=== PATIENT | female | born 1980 | race Caucasian/White ===

== ENCOUNTER 2017-09-03 17:46 | Emergency (ER) | payer MEDICARE, OTHER ==
[2017-09-03 18:09] LABS: Bilirubin Negative (Negative); Blood, Urine Large (Negative); Clarity Cloudy (Clear); Glucose, Urine (Dipstick) Negative (Negative); Leukocyte Small (Negative); Nitrite Negative (Negative); Protein, Urine (Dipstick) > or equal to 300 mg/dL (Neg-Trace); pH, Urine 8.5 (5.0-9.0)
[2017-09-03 18:17] LABS: WBC/HPF 21-50 HPF (0-3)
[2017-09-03 18:18] LABS: Bacteria/HPF 3+ HPF (None Seen)
== END 2017-09-03 18:49 | disposition home or self-care (01) ==
LOC: SCSER 17:46
DX: N39.0 Urinary tract infection, site not specified (principal); E03.9 Hypothyroidism, unspecified; F32.9 Major depressive disorder, single episode, unspecified; F41.9 Anxiety disorder, unspecified; Z79.899 Other long term (current) drug therapy
CPT/HCPCS: 81003; 81015; 87077; 87086; 87186; 99283

== ENCOUNTER 2018-03-10 09:15 | Outpatient (CLI) | payer MEDICARE | END 2018-03-10 09:16 | disposition home or self-care (01) | LOC: BICMAMMO 09:15 | PROVIDERS: ATTEND Family Medicine | DX: N63.0 Unspecified lump in unspecified breast (principal); N64.52 Nipple discharge; Z98.890 Other specified postprocedural states | CPT/HCPCS: 76642 ×2; 77066; G0279 ==

== ENCOUNTER 2018-06-10 20:26 | Emergency (ER) | payer MEDICARE | END 2018-06-10 21:52 | disposition home or self-care (01) | LOC: SCSER 20:26 | DX: M79.672 Pain in left foot (principal); E03.9 Hypothyroidism, unspecified; F32.9 Major depressive disorder, single episode, unspecified; F41.9 Anxiety disorder, unspecified; Z79.899 Other long term (current) drug therapy | CPT/HCPCS: 99283 ==

== ENCOUNTER 2018-06-11 12:06 | Emergency (ER) | payer MEDICARE ==
[2018-06-11] MEDS ORDERED: Ibuprofen 800 MG TAB ONE (12:39)
[2018-06-11 13:00] LABS: #Basophils 0.1 thou/uL (0.0-0.2); #Monocytes 0.5 thou/uL (0.11-0.59); #Neutrophils 6.3 thou/uL (1.40-6.50); %Basophils 0.8 % (0.0-1.0); %Eosinophils 0.5 % (0.0-10.0); %Monocytes 5.7 % (0.0-10.0); Mean Corpuscular Hemoglobin 28.8 pg (27.0-31.0); Mean Corpuscular Volume 84.6 fL (78.0-98.0); Mean Platelet Volume 7.6 fL (7.4-10.4); Platelet Count 354 thou/uL (130-400); RBC Distribution Width 10.2 % (11.5-14.5); Red Blood Cell (RBC) Count 4.84 mill/uL (4.20-5.40); White Blood Cell (WBC) Count 7.9 thou/uL (4.8-10.8)
[2018-06-11 13:11] LABS: Anion Gap 15 mmol/L (10-20); BUN (Urea Nitrogen) 10 mg/dL (7.0-18.7); Calc. Creatinine Clearance 0 mL/min (70-130); Calcium 9.2 mg/dL (7.8-10.44); Carbon Dioxide 24 mmol/L (22-29); Chloride 104 mmol/L (98-107); Estimated GFR-MDRD Greater than 90; Glucose 90 mg/dL (70-105); Potassium 3.8 mmol/L (3.5-5.1); Sodium 139 mmol/L (136-145)
--- NOTE | 2018-06-11 13:17 | RAD ---
CHEST ONE VIEW: History: Dyspnea. Comparison: 05-30-11 FINDINGS: Normal cardiac silhouette. The pulmonary vessels and hilum are normal. Costophrenic angles are clear. No consolidation or mass. No pneumothorax or osseous abnormality. IMPRESSION: No acute cardiopulmonary process. POS: [facility]
--- NOTE | 2018-06-11 13:22 | RAD ---
LEFT FOOT THREE VIEWS: HISTORY: Injury. Pain. COMPARISON: None. FINDINGS: Lisfranc alignment is maintained. Joint spaces are preserved. No fracture. IMPRESSION: No fracture. POS: [facility]
[2018-06-11 13:24] LABS: BHCG - Serum Negative (NEGATIVE); Pregs Control Background? CLEAR/WHITE (CLR/WHITE); Pregs Control Bar Appear? YES (CONTROL BAR)
== END 2018-06-11 15:03 | disposition home or self-care (01) ==
LOC: SCSER 12:06
DX: S90.122A Contusion of left lesser toe(s) without damage to nail, initial encounter (principal); R09.89 Other specified symptoms and signs involving the circulatory and respiratory systems; E03.9 Hypothyroidism, unspecified; F41.9 Anxiety disorder, unspecified; F32.9 Major depressive disorder, single episode, unspecified; W22.8XXA Striking against or struck by other objects, initial encounter
CPT/HCPCS: 71045; 80048; 84484; 84703; 85025; 85379; 93005; 96360; 96361

== ENCOUNTER 2018-10-14 08:44 | Emergency (ER) | payer MEDICARE ==
--- NOTE | 2018-10-14 09:35 | RAD ---
Exam:Left knee 4 views HISTORY: Pain COMPARISON: None FINDINGS: Joint spaces are preserved. No fracture or malalignment. No joint effusion IMPRESSION: Unremarkable left knee 4 views
== END 2018-10-14 09:42 | disposition home or self-care (01) ==
LOC: SCSER 08:44
DX: M25.562 Pain in left knee (principal); E03.9 Hypothyroidism, unspecified; F41.9 Anxiety disorder, unspecified; F32.9 Major depressive disorder, single episode, unspecified; Z79.899 Other long term (current) drug therapy

== ENCOUNTER 2018-10-14 14:40 | Outpatient (CLI) | payer MEDICARE ==
--- NOTE | 2018-10-14 15:11 | ULT ---
BILATERAL LOWER EXTREMITY VENOUS DOPPLER ULTRASOUND: Date: 10/14/18 HISTORY: Left leg pain and edema. TECHNIQUE: Keys scale ultrasound with color flow and spectral Doppler imaging of the deep venous system of the l eft lower extremity was performed. FINDINGS: There is good flow, compression, and augmentation noted in the common femoral, femoral, deep femoral, popliteal, posterior tibial, and greater saphenous veins of the left lower extremity. IMPRESSION: No evidence of deep venous thrombosis in the left lower extremity. POS: [facility]
== END 2018-10-14 14:41 | disposition home or self-care (01) ==
LOC: ULT 14:40 → BICULT 14:41
PROVIDERS: ATTEND Family Medicine
DX: M25.562 Pain in left knee (principal); R60.0 Localized edema

== ENCOUNTER 2018-12-04 20:13 | Emergency (ER) | payer MEDICARE | END 2018-12-04 21:05 | disposition home or self-care (01) | LOC: SCSER 20:13 | DX: R51 Headache (principal); E03.9 Hypothyroidism, unspecified; F41.9 Anxiety disorder, unspecified; F32.9 Major depressive disorder, single episode, unspecified; Z79.899 Other long term (current) drug therapy | CPT/HCPCS: 99283 ==

== ENCOUNTER 2018-12-05 09:40 | Emergency (ER) | payer MEDICARE ==
[2018-12-05 10:31] LABS: Hemoglobin 14.5 g/dL (12.0-16.0); Lymphocytes 14 % (21-51); MDiff Complete? YES; Mean Corpuscular HGB CONC 34.8 g/dL (32.0-36.0); Mean Corpuscular Hemoglobin 29.5 pg (27.0-31.0); Mean Corpuscular Volume 84.7 fL (78.0-98.0); Mean Platelet Volume 6.1 fL (7.4-10.4); Monocytes 3 % (0-10); Neutrophil 83 % (42-75); Platelet Count 331 thou/uL (130-400); Platelet Morphology Comment Appears Adequate; RBC Distribution Width 10.8 % (11.5-14.5); Red Blood Cell (RBC) Count 4.93 mill/uL (4.20-5.40)
[2018-12-05 10:36] LABS: ALT (SGPT) 15 U/L (8-55); AST (SGOT) 14 U/L (5-34); Albumin 4.5 g/dL (3.5-5.0); Alkaline Phosphatase 104 U/L (40-150); Anion Gap 18 mmol/L (10-20); BUN (Urea Nitrogen) 6 mg/dL (7.0-18.7); Bilirubin, Total 0.3 mg/dL (0.2-1.2); Calc. Creatinine Clearance 0 mL/min (70-130); Calcium 9.5 mg/dL (7.8-10.44); Carbon Dioxide 24 mmol/L (22-29); Chloride 101 mmol/L (98-107); Estimated GFR-MDRD 90; Globulin 3.2 g/dL (2.4-3.5); Glucose 111 mg/dL (70-105); Potassium 3.5 mmol/L (3.5-5.1); Protein, Total 7.7 g/dL (6.0-8.3); Sodium 139 mmol/L (136-145)
[2018-12-05 10:45] LABS: Bilirubin Small (Negative); Blood, Urine Negative (Negative); Clarity Slightly Cloudy (Clear); Glucose, Urine (Dipstick) Negative (Negative); Leukocyte Negative (Negative); Nitrite Negative (Negative); Protein, Urine (Dipstick) 30 mg/dL (Neg-Trace)
[2018-12-05 10:50] LABS: Bacteria/HPF 1+ HPF (None Seen); Hyaline Casts/LPF 0-3 HYALINE CAST LPF (0-3 Hyaline); RBC/HPF 0-3 HPF (0-3); WBC/HPF 0-3 HPF (0-3)
--- NOTE | 2018-12-05 11:26 | CT ---
Exam: CT brain PROVIDED CLINICAL HISTORY: Headache COMPARISON: 04/02/2003 FINDINGS: The ventricular system is normal in size and morphology. No evidence for intracranial hemorrhage or mass effect. The extracranial soft tissues and osseous structures demonstrate an unremarkable CT appearance. IMPRESSION: No evidence for intracranial hemorrhage or mass effect.
--- NOTE | 2018-12-05 12:28 | CT ---
EXAM: CT pulmonary angiogram with IV contrast and 3-D MIP reconstructions PROVIDED CLINICAL HISTORY: Tachycardia COMPARISON: None FINDINGS: There is no evidence for central or segmental pulmonary embolus. The lungs are free of significant op acity. No pleural fluid or pneumothorax apparent. No evidence for thoracic lymph node enlargement. The airway appears patent and of normal caliber. The visualized portions of the upper abdomen demonst rate no acute findings. The osseous structures demonstrate no concerning lytic or blastic lesions. IMPRESSION: No evidence for central or segmental pulmonary embolus.
== END 2018-12-05 13:20 | disposition home or self-care (01) ==
LOC: SCSER 09:40
DX: R00.2 Palpitations (principal); F41.9 Anxiety disorder, unspecified; F32.9 Major depressive disorder, single episode, unspecified; E03.9 Hypothyroidism, unspecified; Z79.899 Other long term (current) drug therapy
CPT/HCPCS: 70450; 71275; 80053; 81003; 81015; 84443; 84484; 85025; 85379; 93005; 96360

== ENCOUNTER 2018-12-14 11:53 | Emergency (ER) | payer MEDICARE ==
[2018-12-14] MEDS ORDERED: Ondansetron PF 4 MG/2 ML Vial ONE (12:18)
== END 2018-12-14 14:22 | disposition home or self-care (01) ==
LOC: SCSER 11:53
DX: R11.2 Nausea with vomiting, unspecified (principal); E03.9 Hypothyroidism, unspecified; F32.9 Major depressive disorder, single episode, unspecified; F41.9 Anxiety disorder, unspecified; Z79.899 Other long term (current) drug therapy
CPT/HCPCS: 96361; 96374; J2405

== ENCOUNTER 2018-12-20 17:40 | Emergency (ER) | payer MEDICARE ==
[2018-12-20] MEDS ORDERED: Acetaminophen 500 MG TAB ONE (18:03)
== END 2018-12-20 18:16 | disposition home or self-care (01) ==
LOC: SCSER 17:40
DX: L25.9 Unspecified contact dermatitis, unspecified cause (principal); E03.9 Hypothyroidism, unspecified; F41.9 Anxiety disorder, unspecified; F32.9 Major depressive disorder, single episode, unspecified; Z79.899 Other long term (current) drug therapy
CPT/HCPCS: 87081; 87430; 99283

== ENCOUNTER 2018-12-22 12:38 | Inpatient (IN) | payer MEDICARE ==
[2018-12-22 13:30] LABS: #Basophils 0.1 thou/uL (0.0-0.2); #Lymphocytes 0.5 thou/uL (1.20-3.40); #Monocytes 0.4 thou/uL (0.11-0.59); #Neutrophils 5.9 thou/uL (1.40-6.50); %Basophils 0.8 % (0.0-1.0); %Eosinophils 0.3 % (0.0-10.0); %Lymphocytes 7.1 % (21.0-51.0); %Neutrophils 85.8 % (42.0-75.0); Hemoglobin 14.7 g/dL (12.0-16.0); Mean Corpuscular HGB CONC 36.2 g/dL (32.0-36.0); Mean Corpuscular Hemoglobin 29.3 pg (27.0-31.0); Mean Corpuscular Volume 80.9 fL (78.0-98.0); Mean Platelet Volume 8.1 fL (7.4-10.4); Platelet Count 236 thou/uL (130-400); RBC Distribution Width 10.9 % (11.5-14.5); Red Blood Cell (RBC) Count 5.02 mill/uL (4.20-5.40); White Blood Cell (WBC) Count 6.9 thou/uL (4.8-10.8)
[2018-12-22 13:37] LABS: BHCG - Serum Negative (NEGATIVE); Pregs Control Background? CLEAR/WHITE (CLR/WHITE); Pregs Control Bar Appear? YES (CONTROL BAR)
[2018-12-22 13:47] LABS: ALT (SGPT) 22 U/L (8-55); AST (SGOT) 26 U/L (5-34); Albumin 4.2 g/dL (3.5-5.0); Alkaline Phosphatase 99 U/L (40-150); Anion Gap 24 mmol/L (10-20); BUN (Urea Nitrogen) 12 mg/dL (7.0-18.7); Bilirubin, Total 0.4 mg/dL (0.2-1.2); Calc. Creatinine Clearance 0 mL/min (70-130); Calcium 8.9 mg/dL (7.8-10.44); Carbon Dioxide 19 mmol/L (22-29); Chloride 93 mmol/L (98-107); Estimated GFR-MDRD 54; Globulin 3.1 g/dL (2.4-3.5); Glucose 96 mg/dL (70-105); Lipase 309 U/L (8-78); Protein, Total 7.3 g/dL (6.0-8.3); Sodium 134 mmol/L (136-145)
[2018-12-22 13:51] LABS: Potassium 2.2 mmol/L (3.5-5.1)
[2018-12-22] MEDS ORDERED: Ondansetron ODT 4 MG TAB ONE (14:09)
[2018-12-22 14:56] LABS: Magnesium 2.1 mg/dL (1.6-2.6); Phosphorus 2.8 mg/dL (2.3-4.7)
[2018-12-22] MEDS ORDERED: D5 1/2 NS w/20 mEq KCL 1,000 ML ONE (16:07)
[2018-12-22] MEDS ORDERED: NS 0.9% w/ 20 MEQ KCL 1,000 ML/1,000 ML BAG IV SCH (17:30)
[2018-12-22 18:24] LABS: Anion Gap 18 mmol/L (10-20); BUN (Urea Nitrogen) 10 mg/dL (7.0-18.7); Calc. Creatinine Clearance 0 mL/min (70-130); Carbon Dioxide 19 mmol/L (22-29); Chloride 100 mmol/L (98-107); Estimated GFR-MDRD 71; Glucose 128 mg/dL (70-105); Sodium 134 mmol/L (136-145)
[2018-12-22 18:44] LABS: Potassium 2.7 mmol/L (3.5-5.1)
[2018-12-22] MEDS ORDERED: Potassium Chloride 40 MEQ in Premix Bag 1 BAG IVPB SCH (19:00)
[2018-12-22] MEDS ORDERED: D5 1/2 NS w/40 mEq KCL 1,000 ML IV SCH (19:00)
[2018-12-22] MEDS ORDERED: Ondansetron ODT 4 MG TAB PO PRN (22:24)
[2018-12-22] MEDS ORDERED: Acetaminophen 500 MG TAB PO PRN (22:24)
[2018-12-22] MEDS ORDERED: Ondansetron PF 4 MG/2 ML Vial IVP PRN (22:24)
[2018-12-22] MEDS: D5 NS w/ 40 mEq KCl 1,000 ML IV SCH (23:55)
[2018-12-22] MEDS: Ketorolac Tromethamine 30 MG/ML VIAL IVP SCH (23:56)
--- NOTE | 2018-12-23 03:51 | HP ---
PRIMARY CARE PROVIDER: Cathi Vincent MD. CHIEF COMPLAINT: Nausea, vomiting, and abdominal pain. HISTORY OF PRESENT ILLNESS: This is a 38-year-old female, who presents to [facility] Emergency Department with approximately a week-long history of persistent abdominal pain associated with nausea, vomiting, and decreased oral intake. The patient states her symptoms began spontaneously without change to dietary regimen, exposure history, or new medications. The patient denied any family members with similar symptoms and denied diarrhea. The patient denied any blood in her emesis and reports that she presented to an emergency room after approximately 3 days of symptoms, receiving Zofran and symptomatic treatment. The patient was released home and states her symptoms persisted despite the Zofran and trying to maintain her hydration. The patient denied any specific fever, chills, or previous symptoms or abdominal pain similar to this presentation. The patient localizes the pain in her mid epigastric region with some radiation to her back. The patient denies any lower pelvic pain, discharge, or recent surgical intervention. In the emergency room, the patient underwent general evaluation showing evidence of severe dehydration with hypokalemia, elevated creatinine, and lipase of 309. The patient received intravenous normal saline in addition to potassium supplementation. The patient also received antiemetics including Zofran with improvement in her nausea. PAST MEDICAL HISTORY: 1. Depression. 2. Narcolepsy with cataplexy, controlled. 3. Hypothyroidism, treated. 4. cardiomyopathy, stable. PAST SURGICAL HISTORY: Status post partial hysterectomy with ovarian cystectomy. CURRENT MEDICATIONS: 1. Nuvigil 1 tablet daily. 2. Levothyroxine daily. 3. Xyrem 3 g p.o. at bedtime. 4. Vyvanse daily. 5. Abilify 2 mg p.o. daily. Doses will need to be confirmed with the patient. ALLERGIES: TO MORPHINE SULFATE AND DILANTIN. FAMILY HISTORY: No inheritable disease per patient report. SOCIAL HISTORY: The patient resides in [place], [place]. Accompanied by her daughter in the hospital. No current alcohol, tobacco, or illicit drug use. Functional of all activities of daily living. REVIEW OF SYSTEMS: CONSTITUTIONAL: Negative for weight loss or gain, ability to conduct usual activities. SKIN: Negative for rash, itching. EYES: Negative for double vision, pain. ENT/MOUTH: Negative for nose bleeding, neck stiffness, pain, tenderness. CARDIOVASCULAR: Negative for palpitations, dyspnea on exertion, orthopnea. RESPIRATORY: Negative for shortness of breath, wheezing, cough, hemoptysis, fever or night sweats. GASTROINTESTINAL: Negative for poor appetite, abdominal pain, heartburn, nausea, vomiting, constipation, or diarrhea. GENITOURINARY: Negative for urgency, frequency, dysuria, nocturia. MUSCULOSKELETAL: Negative for pain, swelling. NEUROLOGIC/PSYCHIATRIC: Negative for anxiety, depression. ALLERGY/IMMUNOLOGIC: Negative for skin rash, bleeding tendency. Otherwise negative except as stated per HPI. PHYSICAL EXAMINATION: VITAL SIGNS: On admission, blood pressure 124/85, pulse 92, respiratory rate 16, temperature 98.7 degrees Fahrenheit, O2 saturation 99% on room air. GENERAL APPEARANCE: This is a 38-year-old female, alert, responsive, pleasant, in no acute distress. HEENT: Pupils are equal, round, and reactive to light and accommodation. Extraocular muscles are intact. No scleral icterus. No conjunctival injection. Nares are patent. OP is clear. Oral mucosa dry. NECK: Supple. No cervical adenopathy. No thyromegaly. No carotid bruits. No JVD appreciated. Cervical spine with full active and passive range of motion. No meningeal signs noted. CHEST: Lungs are clear to auscultation bilaterally. CARDIOVASCULAR: S1, S2 without noted murmur, rub, or gallop. ABDOMEN: Flat with tenderness to palpation in the mid epigastric region. No rebound or guarding appreciated. No palpable mass. Bowel sounds positive in all quadrants. EXTREMITIES: Warm and dry with fair turgor. No clubbing, cyanosis, or asymmetric edema appreciated. Pulses palpable distally at the dorsalis pedis, posterior tibial, and popliteal arteries bilaterally. Capillary refill less than 2 seconds. NEUROLOGIC: Cranial nerves 2 through 12 are grossly intact. No focal or lateralizing signs appreciated. PERTINENT LAB AND X-RAY FINDINGS: Sodium 134, potassium 2.2, chloride 93, CO2 of 19, BUN 12, creatinine 1.13, estimated GFR 54, lactic acid level 0.5, calcium 8.9, phosphorus 2.8, magnesium 2.1, total bilirubin 0.4, AST 26, ALT of 22, alkaline phosphatase 99, albumin 4.2, lipase 309. Serum beta hCG negative. CBC showed a white blood cell count of 6.9, hemoglobin 14.7, hematocrit 40.6, platelet count 236 with 86% neutrophils. Beta-hydroxybutyrate level 5.49. ASSESSMENT AND PLAN: 1. Acute pancreatitis. Exact etiology unclear. We will obtain abdominal right upper quadrant ultrasound in the a.m. to rule out cholestasis or cholelithiasis. Continue intravenous fluids. N.p.o. except for ice chips and sips of water. Pain control with Toradol 30 mg IV q.6 hours p.r.n. Check fasting lipid profile in the a.m. with attention to triglycerides. Repeat lipase in the a.m. 2. Acute kidney injury secondary to dehydration. Continue D5 normal saline and avoid nephrotoxic agents and limit contrast exposure. Repeat creatinine in the a.m. 3. Hypokalemia. Secondary to ongoing GI losses. Continue potassium supplementation with IV fluids and repeat potassium level in the a.m. 4. Nausea and vomiting secondary to #1. Continue antiemetics with Zofran 4 mg IV q.6 hours p.r.n. Ice chips and sips of water as tolerated. 5. Metabolic acidosis. Secondary to starvation ketosis and poor oral intake due to #1. Continue treatment as outlined previously. 6. Prophylaxis. SCDs while in bed. Pepcid 20 mg IV q.12 hours. 7. Code status is full. Surrogate medical decision maker is Kia Mckeon. Job ID: [id number]
[2018-12-23 05:51] LABS: ALT (SGPT) 14 U/L (8-55); AST (SGOT) 17 U/L (5-34); Albumin 3.2 g/dL (3.5-5.0); Alkaline Phosphatase 69 U/L (40-150); Anion Gap 13 mmol/L (10-20); BUN (Urea Nitrogen) 7 mg/dL (7.0-18.7); Bilirubin, Total 0.2 mg/dL (0.2-1.2); Calc. Creatinine Clearance 68 mL/min (70-130); Carbon Dioxide 23 mmol/L (22-29); Cardiac Risk 4.1 (Less than 4.5); Chloride 103 mmol/L (98-107); Cholesterol 152 mg/dl (< 200 Desired); Estimated GFR-MDRD 75; Glucose 131 mg/dL (70-105); HDL Cholesterol 37 mg/dL (>60 Neg Risk); LDL Cholesterol, Calculated 100 mg/dL; Lipase 481 U/L (8-78); Potassium 2.8 mmol/L (3.5-5.1); Protein, Total 5.2 g/dL (6.0-8.3); Sodium 136 mmol/L (136-145); Triglycerides 73 mg/dL (Less than 150)
[2018-12-23 06:11] LABS: Band 4 % (5-11); Eosinophils 2 % (0-10); Lymphocytes 12 % (21-51); MDiff Complete? YES; Mean Corpuscular HGB CONC 34.9 g/dL (32.0-36.0); Mean Corpuscular Hemoglobin 30.1 pg (27.0-31.0); Mean Corpuscular Volume 86.1 fL (78.0-98.0); Monocytes 9 % (0-10); Neutrophil 71 % (42-75); Platelet Count 171 thou/uL (130-400); RBC Distribution Width 11.4 % (11.5-14.5); Reactive Lymphocytes 2 % (0-10); Red Blood Cell (RBC) Count 3.66 mill/uL (4.20-5.40); White Blood Cell (WBC) Count 6.8 thou/uL (4.8-10.8)
[2018-12-23] MEDS: Levothyroxine Sodium 75 MCG TAB PO SCH (06:25)
[2018-12-23] MEDS: Ketorolac Tromethamine 30 MG/ML VIAL IVP SCH ×2 (06:25→16:20)
[2018-12-23] MEDS ORDERED: Potassium Chloride 40 MEQ in Premix Bag 1 BAG IVPB SCH (08:00)
--- NOTE | 2018-12-23 08:12 | ULT ---
GALLBLADDER ULTRASOUND: Date: 12/23/18 INDICATION: Abdominal pain, pancreatitis. FINDINGS: There is a focal region of increased echogenicity of the hepatic parenchyma, demonstrated as an appro ximately 3.7 cm diameter localized in the left hepatic lobe, nonspecific. There are low level echoes of the gallbladder without shadowing. Gallbladder wall is normal in caliber. No obvious pericholecyst ic edema. The common duct is normal, 2 mm in diameter. No ascites is seen. Imaged portions of the posadas creas are grossly unremarkable. IMPRESSION: 1. Low level echoes of the gallbladder could relate to sludge and/or gravel-like cholelithiasis. The re is no cholecystitis evident sonographically. 2. Normal sized common duct. 3. Focal area of increased echogenicity localized in the left hepatic lobe. This could represent an area of focal fatty infiltration, although is nonspecific. Recommend follow-up pre and postcontrast a bdominal MRI for confirmation. POS: [facility]
[2018-12-23] MEDS: D5 NS w/ 40 mEq KCl 1,000 ML IV SCH ×3 (09:12→23:20)
[2018-12-23] MEDS: Famotidine/PF 20 mg/2ml Vial SLOW IVP SCH ×2 (09:12→21:23)
[2018-12-23] MEDS: Potassium Chloride 20 MEQ in Premix Bag 1 BAG IVPB SCH ×4 (09:13→16:27)
[2018-12-23] MEDS ORDERED: Acetaminophen 325 MG TAB PO PRN (10:14)
[2018-12-23] MEDS: VYVANSE 60 MG PO SCH (10:34)
[2018-12-23] MEDS: NUVIGIL 250 MG PO SCH ×4 (10:34→16:51)
[2018-12-23 12:45] LABS: Potassium 2.8 mmol/L (3.5-5.1)
[2018-12-23] MEDS ORDERED: Fentanyl 100 MCG/2 ML VIAL SLOW IVP PRN (13:42)
--- NOTE | 2018-12-23 14:08 | CT ---
CT HEAD WITHOUT CONTRAST: 12/23/18 Multiple axial tomograms obtained through the head without IV enhancement. INDICATIONS: Fall with head injury on 12/22. Headache. Comparison made to CT head 12/05/18. No evidence of mass or hemorrhage. No evidence of infarct or edema. IMPRESSION: No acute abnormality. No interval change. POS: [facility]
--- NOTE | 2018-12-23 15:00 | PRG ---
DATE OF SERVICE: SUBJECTIVE: A 38-year-old female presented to the emergency room with persistent nausea and vomiting as well as oral intake over the last one and half to two weeks. She has lost approximately 20 pounds per patient report. She feels symptomatically better with IV fluids overnight. No diarrhea reported. Abdominal pain is intermittent. She continues to have pressure on the center of the head, which has somewhat worsened since yesterday. She also reports that she fell yesterday and hit her head on the floor. This was witnessed by her daughter who was at the bedside. REVIEW OF SYSTEMS: The patient denies any chest pain, palpitations, or focal neurologic deficit. CURRENT MEDICATIONS: Reviewed. The patient is on IV fluids with potassium as well as levothyroxine and other home medications. PHYSICAL EXAMINATION: VITAL SIGNS: Temperature 98.7, pulse 71, respirations of 18, blood pressure 109 /61, and O2 saturation 98% on room air. GENERAL: A 38-year-old female in mild distress due to persistent pressure on the head. HEENT: Head, atraumatic and normocephalic. Sclerae anicteric. Moist mucous membranes. No oral lesion. NECK: Supple. No JVD appreciated. No carotid bruit. LUNGS: Clear to auscultation bilaterally. No wheezing, rales, or rhonchi. HEART: S1, S2 present. Regular rate and rhythm. No rubs or gallops. ABDOMEN: Soft. Mild epigastric tenderness. No rebound or guarding. No costovertebral angle tenderness. EXTREMITIES: No edema or calf tenderness. NEUROLOGIC: Grossly nonfocal. Power was 5/5 in all extremities. LABORATORY DATA: Telemetry monitoring by my review showed sinus rhythm. Abdominal ultrasound showed normal size common bile duct. There was suspected sludge versus cholelithiasis in the gallbladder. There was also a focal area of increased echogenicity localized in the left hepatic lobe. This could represent focal fatty infiltration per radiologist. Potassium 2.8. Ketones on admission 5.49. BUN 7, creatinine 0.84. LFTs in normal range. Lipase went up to 481 from 309. IMPRESSION: 1. Acute pancreatitis of unclear etiology. 2. Acute kidney injury secondary to dehydration. Maximum creatinine was 1.25. 3. Moderate protein-calorie malnutrition. The patient has lost approximately 20 pounds recently per patient report. 4. Hypokalemia with potassium 2.2 on admission. 5. Hyponatremia. 6. Chronic kidney disease, stage 2. 7. Persistent headache with a closed head injury yesterday per patient report. 8. Hypothyroidism. 9. Narcolepsy with cataplexy. 10. History of cardiomyopathy. 11. Depression, mild, stable. 12. Starvation ketosis. 13. Suspected cholelithiasis versus sludge on the ultrasound. 14. Focal area of increased echogenicity localized in the left hepatic lobe. Pre and postcontrast abdominal MRI is recommended as outpatient. Primary care physician advised to follow. PLAN: 1. Potassium will be replaced. We will keep her n.p.o. Gastroenterology has been consulted. We will continue her home medications. We will get a CT scan of the brain noncontrast due to persistent headache as well as history of fall yesterday. We will check ketones in a.m. along with LFTs and lipase. We will consult walking program for ambulation. We will continue telemetry monitoring until potassium is stable. 2. GI prophylaxis. 3. SCDs for DVT prophylaxis. Job ID: [id number] [facility]
[2018-12-23] MEDS: Aripiprazole 10 MG TAB PO SCH (21:23)
[2018-12-23] MEDS: XYREM PO SCH (22:22)
--- NOTE | 2018-12-24 00:47 | CON ---
DATE OF CONSULTATION: 12/23/2018 REASON FOR CONSULTATION: Abdominal pain, nausea and vomiting, and evidence of pancreatitis. HISTORY OF PRESENT ILLNESS: Mena Figueroa is a very pleasant 38-year-old female who does see Dr. Cathi Vincent on a regular basis. The patient lived in [place] before she moved to [facility] 2 years ago. She was actually living here many years ago, I believe in 1999 and she moved to [place]. The patient has history of epigastric abdominal pain, nausea, and also some palpitation. Her symptoms started on December 13. She came to the ER because of nausea and vomiting . She was told to have gastroenteritis and was sent home on some medication. The patient's symptoms persisted. To begin with, the pain was actually burning in nature. The pain was in epigastric area. Her symptoms persisted for the last 10 days and she was having nausea, vomiting, not able to keep anything down. There is no history of fever or chills. She saw Dr. Cathi Vincent on Friday who told her that she has chronic pancreatitis and was sent to the ER and subsequently hospitalized. Since admission, the patient was actually feeling better. She appears comfortable at this time. The pain intensity is much less. There was no more nausea, no vomiting. She is able to keep sips of ice and water down. The pain which was burning in nature to begin with for several days subsequently changed to more of a persistent pain. The pain was [id number] in intensity. There is no history of fever or chills. No similar episodes in the past. The patient came to the ER, had an evidence of pancreatitis and hospitalized. However, subsequently her lipase level is not very high, it is in the range of 400. The patient does not drink any alcohol. Abdominal sonogram shows what appears to be biliary sludge. The common duct is normal in caliber. No relevant history. ALLERGIES: ALLERGIC TO DILANTIN AND MORPHINE. MEDICAL ILLNESSES: 1. Depression. 2. Hypothyroidism. 3. Narcolepsy with cataplexy, controlled. 4. cardiomyopathy, heart function back to normal since 2011 and not taking medications. PAST SURGICAL HISTORY: Partial hysterectomy. SOCIAL HISTORY: The patient has 3 children. She does not smoke or drink alcohol. MEDICATIONS: Include; 1. Nuvigil one tab once a day. 2. Levothyroxine once a day. 3. Xyrem 3 g p.o. at bedtime. 4. Vyvanse daily. 5. Abilify 2 mg daily. FAMILY HISTORY: I believe mother had abdominal surgery. REVIEW OF SYSTEMS: A 10-point system reviewed, remarkable for headache, to begin with from palpitation and also her nausea, vomiting. She also has some burning over the epigastric area. Other relevant history is that she has lost 15 pounds over the last 10 days, she could not able to anything at all. HEENT: Unremarkable. LUNGS: No chronic coughing. No hemoptysis. No dyspnea. CARDIOVASCULAR: No chest pain. History of palpitation 10 days ago. No dyspnea, orthopnea, PND. GI: As in the history of present illness. : No dysuria, hematuria or frequency of urination. MUSCULOSKELETAL: Unremarkable. ENDOCRINE: Unremarkable. PHYSICAL EXAMINATION: GENERAL: She is very comfortable. She is very thin built. VITAL SIGNS: Afebrile. Pulse is 92, blood pressure 120/70. Conjunctivae clear. NECK: Supple. No adenitis or thyromegaly noted. CARDIOVASCULAR: First and second sounds are normal. LUNGS: Clear to auscultation. ABDOMEN: Soft. Abdomen is nondistended. She is tender over the epigastric area and slightly over the right upper quadrant. There is no rebound or guarding. No organomegaly. Bowel sounds are normal. EXTREMITIES: Reveal no edema. LABORATORY DATA: Sodium 134, potassium is 2.2, chloride 93, bicarb is 19, BUN is 12, creatinine 1.13, lactic acid 0.5, calcium 8.9, phosphorus 2.8, magnesium 2.1, bilirubin 0.4, AST 26, ALT 22, alkaline phosphatase 99, bilirubin is normal. Albumin 4.2, lipase 309. CBC; WBC 6900, hemoglobin 14.7, hematocrit 40.6, MCV normal, platelet count 236,000. CLINICAL IMPRESSION: 1. Acute pancreatitis. The patient does not take any alcohol and most likely she has a biliary pancreatitis. She does have gallbladder sludge. 2. Hypothyroidism. 3. Depression. 4. Narcolepsy with cataplexy. 5. cardiomyopathy, which is back to normal. RECOMMENDATIONS: 1. Analgesics. 2. IV fluids. 3. Follow up labs. 4. Place surgical consult for possible laparoscopic cholecystectomy. Job ID: [id number]
[2018-12-24] MEDS: XYREM PO SCH ×2 (01:26→21:36)
[2018-12-24 05:40] LABS: #Eosinphils 0.2 thou/uL (0.0-0.7); #Lymphocytes 1.1 thou/uL (1.20-3.40); #Monocytes 0.5 thou/uL (0.11-0.59); #Neutrophils 3.7 thou/uL (1.40-6.50); %Basophils 0.3 % (0.0-1.0); %Lymphocytes 20.8 % (21.0-51.0); %Monocytes 8.2 % (0.0-10.0); %Neutrophils 67.7 % (42.0-75.0); Hemoglobin 10.5 g/dL (12.0-16.0); Mean Corpuscular HGB CONC 34.7 g/dL (32.0-36.0); Mean Corpuscular Hemoglobin 30.4 pg (27.0-31.0); Mean Corpuscular Volume 87.4 fL (78.0-98.0); Mean Platelet Volume 8.1 fL (7.4-10.4); Platelet Count 163 thou/uL (130-400); RBC Distribution Width 11.7 % (11.5-14.5); Red Blood Cell (RBC) Count 3.46 mill/uL (4.20-5.40); White Blood Cell (WBC) Count 5.5 thou/uL (4.8-10.8)
[2018-12-24] MEDS: Levothyroxine Sodium 75 MCG TAB PO SCH (05:59)
[2018-12-24 06:01] LABS: Phosphorus 2.3 mg/dL (2.3-4.7)
[2018-12-24 06:04] LABS: ALT (SGPT) 14 U/L (8-55); AST (SGOT) 16 U/L (5-34); Albumin 3.1 g/dL (3.5-5.0); Alkaline Phosphatase 68 U/L (40-150); Anion Gap 10 mmol/L (10-20); BUN (Urea Nitrogen) 5 mg/dL (7.0-18.7); Bilirubin, Total 0.2 mg/dL (0.2-1.2); Calc. Creatinine Clearance 88 mL/min (70-130); Calcium 8.1 mg/dL (7.8-10.44); Carbon Dioxide 26 mmol/L (22-29); Chloride 107 mmol/L (98-107); Estimated GFR-MDRD Greater than 90; Globulin 1.8 g/dL (2.4-3.5); Glucose 125 mg/dL (70-105); Lipase 717 U/L (8-78); Magnesium 1.7 mg/dL (1.6-2.6); Potassium 3.1 mmol/L (3.5-5.1); Protein, Total 4.9 g/dL (6.0-8.3); Sodium 140 mmol/L (136-145)
[2018-12-24] MEDS: D5 NS w/ 40 mEq KCl 1,000 ML IV SCH ×2 (08:04→18:12)
[2018-12-24] MEDS ORDERED: Pantoprazole 40 MG VIAL IVP SCH (09:15)
[2018-12-24] MEDS: VYVANSE 60 MG PO SCH (09:27)
[2018-12-24] MEDS: NUVIGIL 250 MG PO SCH ×2 (09:27→12:46)
[2018-12-24] MEDS ORDERED: Sodium Chloride 0.9% (PF) 10 ML VIAL FS PRN (10:24)
[2018-12-24] MEDS: Famotidine/PF 20 mg/2ml Vial SLOW IVP SCH (10:43)
[2018-12-24] MEDS: Ketorolac Tromethamine 30 MG/ML VIAL IVP SCH ×2 (11:26→17:52)
--- NOTE | 2018-12-24 13:59 | PDOC.PN ---
- Subjective Encounter Start Date: 12/24/18 Encounter Start Time: 09:00 Patient seen and examined for Acute Pancreatitis. Abd pain improving. Mild nausea. No other complaints. No overnight events - Objective Resuscitation Status - Order Detail: 12/22/18 22:16 Resuscitation Status Routine Resuscitation Status: FULL: Full Resuscitation MAR Reviewed: Yes Vital Signs & Weight: Vital Signs (12 hours) Temp Pulse Resp BP Pulse Ox 12/24/18 13:06 97.7 F 100 18 116/68 99 12/24/18 08:01 98 F 82 18 119/75 100 12/24/18 03:39 99.5 F 83 20 109/69 98 Weight Admit Weight 105 lb 5 oz Weight 108 lb 11.2 oz I&O: 12/23/18 12/24/18 12/25/18 06:59 06:59 06:59 Intake Total 2940 Balance 2940 Result Diagrams: 12/24/18 04:56 12/24/18 04:56 Additional Labs: Laboratory Tests 12/22/18 12/24/18 12/24/18 13:25 04:56 04:56 Phosphorus Lipase 717 H B-Hydroxybutyrate 5.49 H 0.36 H 12/24/18 04:56 Phosphorus 2.3 Lipase B-Hydroxybutyrate EKG Reviewed by me: Yes (Tele SR) Phys Exam - Physical Examination Constitutional: NAD Respiratory: no wheezing, no rhonchi Cardiovascular: RRR, no rub Gastrointestinal: soft, positive bowel sounds mild epigastric tenderness Musculoskeletal: no edema Neurological: non-focal, moves all 4 limbs Dx/Plan - Plan DVT proph w/SCDs IMPRESSION: 1. Acute pancreatitis of unclear etiology. 2. Acute kidney injury secondary to dehydration. 3. Hypokalemia with potassium 2.2 on admission. 4. Starvation ketosis. 5. Moderate protein-calorie malnutrition. 6. Suspected cholelithiasis versus sludge on the ultrasound. 7. Persistent headache - CT brain negative 8. Hypothyroidism. 9. Narcolepsy with cataplexy. 10. History of cardiomyopathy. 11. Depression, mild, stable. 12. Hyponatremia. 13. Chronic kidney disease, stage 2. 14. Focal area of increased echogenicity localized in the left hepatic lobe. Pre and postcontrast abdominal MRI is recommended as outpatient. Primary care physician advised to follow. PLAN: Cont IV fluids with potassium Consult Gen surg NPO Pain control Transfer to surgical IV PPI AM labs Review of Systems - Review of Systems Respiratory: negative: Cough, Dry, Shortness of Breath, Hemoptysis, SOB with Excertion, Pleuritic Pain, Sputum, Wheezing Cardiovascular: negative: chest pain, palpitations, orthopnea, paroxysmal nocturnal dyspnea, edema, light headedness, other - Medications/Allergies Allergies/Adverse Reactions: Allergies Allergy/AdvReac Type Severity Reaction Status Date / Time morphine Allergy Verified 12/22/18 23:58 Medications: Current Medications Acetaminophen (Tylenol) 1,000 mg PO Q6H PRN PRN Reason: Mild Pain (1-3) Aripiprazole (Abilify) 2.5 mg PO HS COUNTS INCLUDE 234 BEDS AT THE [facility] Last Admin: 12/23/18 21:23 Dose: 2.5 mg Potassium Chloride/Dextrose/Sod Cl (D5 Ns W/ 40 Meq Kcl) 1,000 mls @ 125 mls/ hr IV .Q8H COUNTS INCLUDE 234 BEDS AT THE [facility] Last Admin: 12/24/18 08:04 Dose: 1,000 mls Ketorolac Tromethamine (Toradol) 30 mg IVP Q6HR COUNTS INCLUDE 234 BEDS AT THE [facility] Stop: 12/25/18 12:01 Last Admin: 12/24/18 11:26 Dose: Not Given Levothyroxine Sodium (Synthroid) 75 mcg PO 0600 COUNTS INCLUDE 234 BEDS AT THE [facility] Last Admin: 12/24/18 05:59 Dose: 75 mcg Ondansetron HCl (Zofran Odt) 4 mg PO Q6H PRN PRN Reason: Nausea/Vomiting Ondansetron HCl (Zofran) 4 mg IVP Q6H PRN PRN Reason: Nausea/Vomiting Pantoprazole Sodium (Protonix) 40 mg IVP Q12HR COUNTS INCLUDE 234 BEDS AT THE [facility] Xyrem (Sodium Oxybate) 500 Mg/Ml Solution 6 each PO HS COUNTS INCLUDE 234 BEDS AT THE [facility] Last Admin: 12/23/18 22:22 Dose: 6 each Xyrem (Sodium Oxybate) 500 Mg/Ml Solution 6 each PO 2359 COUNTS INCLUDE 234 BEDS AT THE [facility] Last Admin: 12/24/18 01:26 Dose: 6 each Vyvanse ( Lisdexamfetamine) 60 Mg Caps 1 each PO QAM COUNTS INCLUDE 234 BEDS AT THE [facility] Last Admin: 12/24/18 09:27 Dose: 1 each Nuvigil (Armodafinil () 250 Mg Tab) 1 each PO QAM-WM COUNTS INCLUDE 234 BEDS AT THE [facility] Last Admin: 07/11/19 09:27 Dose: 1 each Nuvigil (Armodafinil () 250 Mg Tab) 1 each PO 1200 [facility] Last Admin: 12/24/18 12:46 Dose: 1 each Sodium Chloride (Flush - Normal Saline) 10 ml IVF Q12HR [facility] Last Admin: 12/24/18 09:28 Dose: 10 ml Sodium Chloride (Flush - Normal Saline) 10 ml IVF PRN PRN PRN Reason: Saline Flush Sodium Chloride (Normal Saline Pf) 10 ml FS PRN PRN PRN Reason: RECONSTITUTION
[2018-12-24] MEDS ORDERED: Potassium Chloride 10 MEQ TAB PO SCH (17:00)
--- NOTE | 2018-12-24 18:25 | NM ---
HEPATOBILIARY SCAN: 12/24/18 HISTORY: 38-year-old female with abdominal pain. RADIOPHARMACEUTICAL: 5 millicuries technetium 99m - Mebrofenin injected intravenously. FINDINGS: There is good tracer extraction by the liver with normal excretion into the biliary tract and small b owel loops and normal filling of the gallbladder. The calculated gallbladder ejection fraction after an oral fatty meal measures 14%. IMPRESSION: Chronic acalculous cholecystitis/gallbladder dyskinesia. POS: [facility]
[2018-12-24] MEDS: Aripiprazole 10 MG TAB PO SCH (20:59)
[2018-12-24] MEDS: Pantoprazole 40 MG VIAL IVP SCH (21:00)
--- NOTE | 2018-12-24 22:28 | PRG ---
DATE OF SERVICE: 12/24/2018 SUBJECTIVE: This is a 38-year-old female, admitted with abdominal pain, nausea, vomiting, and evidence of pancreatitis. She had a gallbladder sonogram, which showed biliary sludge. She was seen by Dr. Brady this morning and advised to have a HIDA scan. The HIDA scan came back positive. Her ejection fraction is very low at 14%. Plan is being made for EGD tomorrow. I believe she should undergo laparoscopic cholecystectomy in the future. Job ID: [id number]
[2018-12-25] MEDS: Ketorolac Tromethamine 30 MG/ML VIAL IVP SCH ×3 (00:21→15:02)
[2018-12-25] MEDS: D5 NS w/ 40 mEq KCl 1,000 ML IV SCH ×3 (00:42→14:51)
[2018-12-25] MEDS: XYREM PO SCH ×3 (00:42→23:38)
[2018-12-25 04:46] LABS: #Eosinphils 0.2 thou/uL (0.0-0.7); #Lymphocytes 0.9 thou/uL (1.20-3.40); #Monocytes 0.4 thou/uL (0.11-0.59); #Neutrophils 2.1 thou/uL (1.40-6.50); %Basophils 0.1 % (0.0-1.0); %Eosinophils 5.1 % (0.0-10.0); %Lymphocytes 25.1 % (21.0-51.0); %Neutrophils 59.7 % (42.0-75.0); Hemoglobin 10.5 g/dL (12.0-16.0); Mean Corpuscular HGB CONC 33.6 g/dL (32.0-36.0); Mean Corpuscular Hemoglobin 29.7 pg (27.0-31.0); Mean Corpuscular Volume 88.4 fL (78.0-98.0); Mean Platelet Volume 8.1 fL (7.4-10.4); Platelet Count 154 thou/uL (130-400); RBC Distribution Width 11.8 % (11.5-14.5); Red Blood Cell (RBC) Count 3.55 mill/uL (4.20-5.40); White Blood Cell (WBC) Count 3.6 thou/uL (4.8-10.8)
[2018-12-25 05:08] LABS: ALT (SGPT) 12 U/L (8-55); AST (SGOT) 16 U/L (5-34); Albumin 3.1 g/dL (3.5-5.0); Alkaline Phosphatase 66 U/L (40-150); Anion Gap 7 mmol/L (10-20); BUN (Urea Nitrogen) 4 mg/dL (7.0-18.7); Bilirubin, Total 0.2 mg/dL (0.2-1.2); Calc. Creatinine Clearance 113 mL/min (70-130); Calcium 8.4 mg/dL (7.8-10.44); Carbon Dioxide 29 mmol/L (22-29); Chloride 104 mmol/L (98-107); Estimated GFR-MDRD Greater than 90; Glucose 131 mg/dL (70-105); Lipase 733 U/L (8-78); Magnesium 1.8 mg/dL (1.6-2.6); Potassium 3.3 mmol/L (3.5-5.1); Protein, Total 5.1 g/dL (6.0-8.3); Sodium 137 mmol/L (136-145)
[2018-12-25] MEDS: Levothyroxine Sodium 75 MCG TAB PO SCH ×2 (05:13→14:58)
[2018-12-25] MEDS ORDERED: Potassium Chloride 40 MEQ in Sodium Chloride 0.9% 250 ML 250 ML IVPB SCH (08:45)
--- NOTE | 2018-12-25 08:47 | PRG ---
DATE OF SERVICE: 12/24/2018 SUBJECTIVE: This is a 38-year-old female with abdominal pain, nausea, vomiting, and weight loss. The patient had abdominal symptoms over the last 10 to 11 days. She has lost almost 15 to 20 pounds. She is not able to keep anything down. She is not able to eat anything at all. She was found to have evidence of pancreatitis and also biliary sludge on sonogram. She was seen by Dr. Brady for consult from General surgery. He recommended a HIDA scan and possibly EGD. The patient actually feeling better today. She has no abdominal pain, no nausea, and no vomiting. OBJECTIVE: GENERAL: Appears comfortable. VITAL SIGNS: Afebrile, pulse is 87, and blood pressure is 119/70. CARDIOVASCULAR SYSTEM: First and second heart sounds normal. LUNGS: Clear to auscultation. ABDOMEN: Soft. Abdomen is nontender. No organomegaly. No rebound or guarding. LABORATORY DATA: WBC 5500, hemoglobin 10.5, hematocrit 30.3, MCV 87.4, platelet count 160,000. Chemistry panel: Potassium slowly coming up to 3.1 from 2.7. BUN is 5, creatinine 0.65, and glucose 125. Bilirubin is 0.2. AST and ALT are normal. Albumin 3.1. Lipase has gone from 481 to 717. However, her abdominal pain is markedly improved. CLINICAL IMPRESSION: 1. Acute pancreatitis, most likely biliary. 2. Weight loss and abdominal pain. General Surgery recommended having esophagogastroduodenoscopy before if further plan is being made about surgery. Plan HIDA scan later today. 3. Esophagogastroduodenoscopy tomorrow morning. I did talk to Ms. Figueroa about possibility of HIDA scan procedure and EGD, etc. She is agreeable. PLAN: EGD tomorrow morning. Job ID: [id number]
[2018-12-25] MEDS: Pantoprazole 40 MG VIAL IVP SCH (09:17)
[2018-12-25 12:27] VITALS: BMI 19.2
--- NOTE | 2018-12-25 12:58 | CON ---
DATE OF CONSULTATION: 12/25/2018 REQUESTING PHYSICIAN: Aden Collado MD HISTORY OF PRESENT ILLNESS: Ms. Figueroa is a 38-year-old woman, who was admitted on 12/22/2018 with recurrent epigastric abdominal pain associated with multiple episodes of nausea and bilious emesis. The patient denies any hematemesis. The pain is described as sharp and occasionally radiates to her back. She denies any diarrhea or abdominal bloating. She has lost 10 to 15 pounds over the last almost six weeks since onset of pain. The patient was previously evaluated in the Emergency Department and discharged home with the presumptive diagnosis of gastroenteritis. The patient is unable to tolerate oral intake including liquids. Studies on admission included a normal CBC. Metabolic profile at that day was essentially unremarkable. The next day, symptoms continued and a repeat metabolic profile including LFTs were obtained, which were essentially unremarkable except for persistent hypokalemia and now elevated serum lipase of 481. Abdominal ultrasound was also obtained on 12/23/2018, which revealed biliary sludge. No gallbladder wall thickening or pericholecystic fluid present. Common bile duct was normal in diameter for this patient's age at 2.4 mm. HIDA scan was obtained yesterday, which though showed no evidence of biliary obstruction. However, the ejection fraction was markedly abnormal at 14%. PAST MEDICAL HISTORY: Pertinent for hypothyroidism, chronic depression, narcolepsy, and now resolved cardiomyopathy. PAST SURGICAL HISTORY: Pertinent for partial robotic assisted hysterectomy with ovarian cystectomy. The patient also reports upper endoscopy at the age 10. SOCIAL HISTORY: She denies any cigarette smoking, ethanol, or illicit drug abuse. PREHOSPITAL MEDICATIONS: Includes; 1. Abilify 2.5 mg p.o. at bedtime. 2. Nuvigil 250 mg p.o. daily. 3. Levothyroxine 75 mcg p.o. daily. 4. Vyvanse 60 mg p.o. q.a.m. 5. Xyrem 3 g p.o. at bedtime. ALLERGIES: TO MORPHINE AND DILANTIN. FAMILY HISTORY: The patient denies any family history of heart disease, diabetes mellitus, gastrointestinal disorders including inflammatory bowel disease, or any cancers. REVIEW OF SYSTEMS: Ten-point review of systems essentially unremarkable except as stated in past medical history and chief complaint. PHYSICAL EXAMINATION: GENERAL: This reveals a 38-year-old normally developed woman, who is otherwise coherent and interactive and appears stated age. The patient is alert and oriented x3. She appears to be in no acute distress at time of my evaluation. VITAL SIGNS: Today include blood pressure 109/73, pulse 89, respiratory rate is 14, temperature 98.3 degrees Fahrenheit, and oxygen saturation is 99% on room air. HEENT: Reveals normocephalic and atraumatic. The pupils are equal, round, and reactive to light and accommodation. She has no scleral icterus present. HEART: Reveals regular rate and rhythm. No murmurs or gallops auscultated. LUNGS: Clear to auscultation bilaterally. Her breathing is regular and nonlabored. ABDOMEN: Soft, nontender, and nondistended. Liver and spleen nonpalpable below costal margin. EXTREMITIES: Reveal 2+ radial and pedal pulses bilaterally. Ankle edema is present. NEUROLOGIC: Reveals no focal deficits present. LABORATORY FINDINGS: Today includes a CBC with 3600 white blood cells, hemoglobin and hematocrit are stable at 10.5 and 31.3 respectively. Platelet count is 154,000. Metabolic profile; sodium is 137, potassium is 3.3, chloride is 104 bicarb is 29, BUN is 4, creatinine is 0.52, glucose is 131, AST and ALT normal at 16 and 12 respectively. Total bilirubin is also normal at 0.2. Serum lipase is noted at 733. I personally reviewed the radiographic studies including abdominal ultrasound of 12/23/2018, which reveals biliary sludge. No gallstones. No pericholecystic fluid or common bile duct dilatation. I have also reviewed the HIDA scan, which was obtained yesterday. Again, the gallbladder and small bowel are visualized suggesting no biliary obstruction. However, ejection fraction is low at 14%. IMPRESSIONS: 1. Acute on chronic acalculous cholecystitis. 2. History of chronic depression. RECOMMENDATIONS: Laparoscopic cholecystectomy. I have advised the patient of the above findings and recommendation. Also, I have informed the patient of the risks and benefits of the proposed surgery to include, but not limited to bleeding, infection, injury to bile duct or surrounding structures. I did inform the patient that although I strongly believed that a biliary dyskinesis is likely the etiology of her symptoms. I could not guarantee that laparoscopic cholecystectomy would resolve this completely. She indicates understanding of information I provided her and wishes to proceed with cholecystectomy. Thank you again, Dr. Collado, for allowing me the opportunity to participate in the care of this patient. Job ID: [id number]
[2018-12-25] MEDS ORDERED: PROPOFOL 200 MG/20 ML VIAL ONE (14:31)
[2018-12-25] MEDS ORDERED: Lidocaine 1% PF 5 ML VIAL ONE (14:31)
[2018-12-25] MEDS: VYVANSE 60 MG PO SCH (14:52)
[2018-12-25] MEDS: NUVIGIL 250 MG PO SCH ×3 (14:58→15:20)
--- NOTE | 2018-12-25 17:33 | OP ---
DATE OF PROCEDURE: 12/25/2018 PROCEDURE PERFORMED: Esophagogastroduodenoscopy. PREOPERATIVE DIAGNOSES: A 38-year-old female with abdominal pain, nausea, vomiting, and weight loss and has evidence of pancreatitis. With these symptoms, she has most likely biliary pancreatitis. She was seen by Dr. Jose Brady for surgical evaluation. Because of weight loss, she was advised to have EGD before surgery. The patient presented for EGD. POSTOPERATIVE DIAGNOSIS: Normal gastroscopy. DESCRIPTION OF PROCEDURE: The patient was placed on her left lateral position and was given sedation by Anesthesia Department. A Pentax video gastroscope under direct vision passed down the oropharynx, past the GE junction into the stomach and subsequently into the descending duodenum. The esophageal mucosa appeared normal. In the GE junction, no pathology. Retroflexion failed to show any pathology in fundus and cardia. The gastric body, gastric antrum, no lesion seen. The duodenal bulb, descending duodenum, no pathology. ENDOSCOPIC IMPRESSION: Normal exam. Job ID: [id number]
--- NOTE | 2018-12-25 20:35 | PRG ---
DATE OF SERVICE: 12/25/2018 SUBJECTIVE: A 38-year-old female who presented to the emergency room with nausea, vomiting, and abdominal pain. Workup was consistent with acute pancreatitis of unclear etiology. The patient was seen by GI and General Surgery. Abdominal ultrasound showed suspected cholelithiasis. She underwent a HIDA scan yesterday that showed gallbladder ejection fraction after an oral fatty meals measuring 14%. The findings were consistent with chronic acalculous cholecystitis/gallbladder dyskinesia. She underwent EGD today due to persistent weight loss that was negative. The patient continues to have epigastric discomfort which is somewhat better than yesterday. No nausea, vomiting, fever, chills reported. CURRENT MEDICATIONS: Reviewed. The patient is on IV fluids along with other home medications. OBJECTIVE: VITAL SIGNS: Temperature 98.1, pulse rate of 87, respirations 16, blood pressure 123/85 with O2 saturation 100% on room air. GENERAL: 38-year-old female in no apparent distress at rest. LUNGS: Clear to auscultation bilaterally. HEART: S1, S2 present. Regular rate and rhythm. ABDOMEN: Soft. Bowel sounds present. EXTREMITIES: No edema or calf tenderness. NEUROLOGY: Grossly nonfocal. LABORATORY FINDINGS: Lipase is 733, potassium 3.3. WBC 3.6 with hemoglobin 10.5. HIDA scan as discussed above. IMPRESSION: 1. Acute pancreatitis of unclear etiology. 2. Chronic acalculous cholecystitis/gallbladder dyskinesia on HIDA scan. 3. Acute kidney injury secondary to dehydration. 4. Hypokalemia with potassium 2.2 on admission. 5. Starvation ketosis. 6. Moderate protein-calorie malnutrition. 7. Persistent headache with history of recent fall. CT brain was negative. 8. Hypothyroidism, on replacement. 9. Narcolepsy and cataplexy, on medications. 10. History of cardiomyopathy. 11. Hyponatremia, improved. 12. Chronic kidney disease, stage 2. 13. Depression, mild, stable. 14. Focal area of increased echogenicity localized in the left hepatic lobe. Pre and postcontrast abdominal MRIs recommended as outpatient. Primary care physician advised to follow. PLAN: We will continue current IV fluids containing IV potassium. We will recheck labs in a.m. Probable laparoscopic cholecystectomy in a.m. Change PPIs to Pepcid. Pain control. The patient was advised to ambulate. Recheck lipase in a.m. Job ID: [id number]
[2018-12-25] MEDS: Aripiprazole 10 MG TAB PO SCH (21:06)
[2018-12-25] MEDS: Famotidine 20 MG TAB PO SCH (21:06)
[2018-12-26 05:19] LABS: #Eosinphils 0.3 thou/uL (0.0-0.7); #Lymphocytes 0.9 thou/uL (1.20-3.40); #Monocytes 0.4 thou/uL (0.11-0.59); #Neutrophils 1.9 thou/uL (1.40-6.50); %Basophils 0.1 % (0.0-1.0); %Eosinophils 7.8 % (0.0-10.0); %Lymphocytes 26.7 % (21.0-51.0); %Monocytes 11.6 % (0.0-10.0); %Neutrophils 53.9 % (42.0-75.0); Hemoglobin 10.7 g/dL (12.0-16.0); Mean Corpuscular HGB CONC 33.2 g/dL (32.0-36.0); Mean Corpuscular Hemoglobin 29.7 pg (27.0-31.0); Mean Corpuscular Volume 89.4 fL (78.0-98.0); Mean Platelet Volume 8.3 fL (7.4-10.4); Platelet Count 178 thou/uL (130-400); RBC Distribution Width 11.7 % (11.5-14.5); White Blood Cell (WBC) Count 3.4 thou/uL (4.8-10.8)
[2018-12-26] MEDS: D5 NS w/ 40 mEq KCl 1,000 ML IV SCH ×2 (05:21→21:08)
[2018-12-26] MEDS: Levothyroxine Sodium 75 MCG TAB PO SCH (05:22)
[2018-12-26 05:39] LABS: Phosphorus 2.4 mg/dL (2.3-4.7)
[2018-12-26 05:48] LABS: ALT (SGPT) 13 U/L (8-55); AST (SGOT) 15 U/L (5-34); Albumin 3.2 g/dL (3.5-5.0); Alkaline Phosphatase 70 U/L (40-150); Anion Gap 12 mmol/L (10-20); BUN (Urea Nitrogen) Less than 4 mg/dL (7.0-18.7); Bilirubin, Total 0.2 mg/dL (0.2-1.2); Calc. Creatinine Clearance 107 mL/min (70-130); Calcium 8.7 mg/dL (7.8-10.44); Carbon Dioxide 27 mmol/L (22-29); Chloride 106 mmol/L (98-107); Estimated GFR-MDRD Greater than 90; Globulin 2.1 g/dL (2.4-3.5); Glucose 103 mg/dL (70-105); Lipase 675 U/L (8-78); Magnesium 1.7 mg/dL (1.6-2.6); Potassium 3.8 mmol/L (3.5-5.1); Protein, Total 5.3 g/dL (6.0-8.3); Sodium 141 mmol/L (136-145)
[2018-12-26] MEDS ORDERED: Magnesium 2 GM/50 ML 2 GM in Premix Bag 1 BAG IVPB SCH (07:15)
[2018-12-26] MEDS ORDERED: PHOS-NAK 1 PKT PACK PO SCH (07:15)
[2018-12-26] MEDS: Famotidine 20 MG TAB PO SCH ×2 (07:51→20:27)
[2018-12-26] MEDS: VYVANSE 60 MG PO SCH (07:52)
[2018-12-26] MEDS ORDERED: cefOXitin 2 GM VIAL ONE (10:28)
[2018-12-26] MEDS ORDERED: Sodium Chloride 0.9% 100 ML ONE (10:28)
[2018-12-26] MEDS ORDERED: Fentanyl 100 MCG/2 ML VIAL ONE ×2 (10:36→13:06)
[2018-12-26] MEDS ORDERED: Midazolam HCl 2 mg/2 ml Vial ONE (10:36)
[2018-12-26] MEDS ORDERED: Bupivacaine HCl 0.5%/Epinephrine 1:200,000/PF 30 ml Vial ONE (10:43)
[2018-12-26] MEDS ORDERED: Bupivacaine/Epinephrine 0.25% 30 ML VIAL ONE (10:44)
[2018-12-26] MEDS ORDERED: Iothalamate Meglumine 60% 50 ML VIAL FS ONE (11:12)
[2018-12-26] MEDS ORDERED: SUGAMMADEX SODIUM 200 MG/2 ML VIAL ONE (12:43)
[2018-12-26] MEDS ORDERED: traMADol HCl 50 MG TAB PO PRN ×2 (12:48)
[2018-12-26] MEDS ORDERED: HYDROmorphone 2 MG/ML VIAL SLOW IVP PRN (12:59)
[2018-12-26] MEDS ORDERED: Ondansetron HCl/PF 4 MG/2 ML Vial IVP PRN (12:59)
[2018-12-26] MEDS ORDERED: Promethazine HCl 25 MG/ML VIAL IM PRN (12:59)
[2018-12-26] MEDS ORDERED: Meperidine HCl/PF 25 MG/ML VIAL SLOW IVP PRN (12:59)
--- NOTE | 2018-12-26 13:03 | OP ---
DATE OF PROCEDURE: 12/26/2018 PREOPERATIVE DIAGNOSES: 1. Intractable nausea and vomiting. 2. Acute on chronic acalculous cholecystitis. POSTOPERATIVE DIAGNOSES: 1. Intractable nausea and vomiting. 2. Acute on chronic acalculous cholecystitis. PROCEDURE PERFORMED: Laparoscopic cholecystectomy. ANESTHESIA: General endotracheal. ESTIMATED BLOOD LOSS: 5 mL. FLUIDS: Given 600 mL crystalloids. COUNTS: Sponge and instrument counts were verified as correct x2. COMPLICATIONS: None apparent at the time of operation. INDICATIONS FOR PROCEDURE: This is a 38-year-old woman, who presented with intractable nausea associated with abdominal pain. Although, the patient had abdominal ultrasound, which did not reveal any gallstones, pericholecystic fluid, or gallbladder wall thickening. The patient did present with pancreatitis with no previous history of alcoholism. Additionally, HIDA scan was obtained, which revealed no biliary obstruction, however, markedly abnormal ejection fraction at 14%. Based on this findings, the patient was brought to the operating room for laparoscopic cholecystectomy. Findings are consistent with gallbladder in the usual anatomic location partially encased by omental adhesions. DESCRIPTION OF PROCEDURE: Informed consent obtained from the patient, who was brought to the operating room and placed in supine position. Following general anesthesia, abdomen was sterilely prepped and draped in usual fashion. Skin below the umbilicus was infiltrated with 0.25% Marcaine with epinephrine. A small curvilinear infraumbilical incision was made using 11 scalpel. Umbilical stalk was grasped with Cindy and elevated. Veress needle was inserted through the incision and placed in the peritoneal cavity through which the abdomen was insufflated with 3 L of CO2 gas. Intraabdominal pressure was noted at 2 mmHg. Following abdominal insufflation, Veress needle was removed and a 5 mm trocar introduced using a Visiport under laparoscopy. Laparoscopy confirmed proper placement of the port, no injuries to underlying structures. Additional laparoscopy reveals gallbladder in the usual anatomic location, partially encased by omental adhesions. Under direct laparoscopy, a 12 mm epigastric and two 5 mm right lateral subcostal ports were placed after the overlying skin were infiltrated with 0.25% Marcaine with epinephrine. Appropriate incision was made. The patient was placed in a reverse Trendelenburg position, rotated to her left. I introduced a [place] dissector with cautery using this to take down omental adhesions. Prestige grasper introduced through the right lateral subcostal port grasping the fundus of the gallbladder, which was elevated cephalad. A second Prestige grasper introduced through the right medial subcostal port grasping the Cayetano pouch, which was retracted laterally. The cystic duct was dissected free from surrounding structures at the triangle of Calot. The duct was divided between clips applying 2 clips proximally and 1 clip at the junction of the cystic duct and gallbladder. Cystic artery was also dissected free from surrounding structures and divided between clips in a similar fashion. The gallbladder itself was removed from the liver bed with good hemostasis and delivered out of the abdominal cavity using an EndoCatch. Operative site inspected for good hemostasis. Clips remained in place. No bile stains noted. Finding no other pathology, laparoscopy was terminated. Fascia of the epigastric port closed using 0 Vicryl suture and Endo Close device on the laparoscopy. The abdomen was desufflated. All ports and instruments removed and accounted for. Skin incisions closed using 4-0 Monocryl suture in subcuticular fashion. Dermabond was applied over incisional closures. The patient tolerated the operation without any apparent complication and was returned to recovery room in satisfactory condition. Job ID: [id number]
[2018-12-26] MEDS ORDERED: Promethazine HCl 25 MG/ML VIAL ONE (13:06)
[2018-12-26] MEDS ORDERED: cefOXitin Sodium/Dextrose,Iso 2 GM in Premix Bag 1 BAG IVPB SCH (14:45)
[2018-12-26] MEDS ORDERED: diphenhydrAMINE 50 MG/ML VIAL ONE (15:01)
[2018-12-26] MEDS ORDERED: Dexamethasone 20 MG/5 ML VIAL ONE (15:01)
[2018-12-26] MEDS ORDERED: Glycopyrrolate 0.2 MG/ML 5 ML SYRINGE ONE (15:01)
[2018-12-26] MEDS ORDERED: Ondansetron PF 4 MG/2 ML Vial ONE (15:01)
[2018-12-26] MEDS ORDERED: Rocuronium Bromide 10 MG/ML (10ML VIAL) ONE (15:01)
[2018-12-26] MEDS ORDERED: Lidocaine 2% PF 5 ML VIAL ONE (15:01)
[2018-12-26] MEDS ORDERED: PROPOFOL 200 MG/20 ML VIAL ONE (15:01)
[2018-12-26] MEDS ORDERED: Ketorolac Tromethamine 30 MG/ML VIAL ONE (15:01)
[2018-12-26] MEDS ORDERED: Simethicone Chewable 80 MG TAB PO PRN (16:36)
--- NOTE | 2018-12-26 16:38 | PDOC.PN ---
- Subjective Encounter Start Date: 12/26/18 (f/u abd pain) Encounter Start Time: 16:37 Subjective: Pt reports she is feeling better. She has some gas pain that is -: improved with belching. She denies any current n/v - Objective Resuscitation Status - Order Detail: 12/22/18 22:16 Resuscitation Status Routine Resuscitation Status: FULL: Full Resuscitation Vital Signs & Weight: Vital Signs (12 hours) Temp Pulse Resp BP Pulse Ox 12/26/18 13:45 97.3 F L 73 20 126/71 98 12/26/18 08:11 98.2 F 83 16 112/75 98 Weight Admit Weight 105 lb 5 oz Weight 108 lb 11.2 oz I&O: 12/25/18 12/26/18 12/27/18 06:59 06:59 06:59 Intake Total 1600 Balance 1600 Result Diagrams: 12/26/18 04:15 12/26/18 04:15 Phys Exam - Physical Examination Constitutional: NAD Respiratory: no wheezing, no rales, no rhonchi, clear to auscultation bilateral Cardiovascular: RRR, no significant murmur Gastrointestinal: soft, positive bowel sounds Musculoskeletal: no edema Neurological: non-focal, moves all 4 limbs Psychiatric: normal affect Dx/Plan (1) Abdominal pain Code(s): R10.9 - UNSPECIFIED ABDOMINAL PAIN Status: Acute (2) Anemia Code(s): D64.9 - ANEMIA, UNSPECIFIED Status: Acute (3) Leukopenia Code(s): D72.819 - DECREASED WHITE BLOOD CELL COUNT, UNSPECIFIED Status: Acute (4) Narcolepsy Code(s): G47.419 - NARCOLEPSY WITHOUT CATAPLEXY Status: Chronic (5) Hypothyroid Code(s): E03.9 - HYPOTHYROIDISM, UNSPECIFIED Status: Chronic Qualifiers: Hypothyroidism type: unspecified Qualified Code(s): E03.9 - Hypothyroidism , unspecified (6) Hypokalemia Code(s): E87.6 - HYPOKALEMIA Status: Resolved (7) EDGARDO (acute kidney injury) Code(s): N17.9 - ACUTE KIDNEY FAILURE, UNSPECIFIED Status: Resolved (8) Malnutrition Code(s): E46 - UNSPECIFIED PROTEIN-CALORIE MALNUTRITION Status: Acute Qualifiers: Malnutrition type: protein-calorie malnutrition Protein-calorie malnutrition severity: moderate Qualified Code(s): E44.0 - Moderate protein- calorie malnutrition - Plan * s/p cholecystectomy with Gen Surgery * diet advanced to clears * post-op care per Gen Surgery * d/c IVF * add simethicone for prn use * continue home meds as ordered * monitor anemia and leukopenia * * * dvt prophy - ambulatory and scd's * gi prophy - not indicated * code status full * * Anticipate discharge when cleared by Gen Surgery.
[2018-12-26] MEDS: NUVIGIL 250 MG PO SCH (17:52)
[2018-12-26] MEDS: Acetaminophen 500 MG TAB PO SCH ×2 (17:55→17:56)
[2018-12-26] MEDS: Aripiprazole 10 MG TAB PO SCH (20:27)
[2018-12-26] MEDS: XYREM PO SCH (21:14)
[2018-12-27] MEDS: XYREM PO SCH (00:32)
[2018-12-27] MEDS: Acetaminophen 500 MG TAB PO SCH ×2 (01:40→06:01)
[2018-12-27 05:04] LABS: #Eosinphils 0.1 thou/uL (0.0-0.7); #Lymphocytes 0.8 thou/uL (1.20-3.40); #Monocytes 0.7 thou/uL (0.11-0.59); %Basophils 0.2 % (0.0-1.0); %Eosinophils 1.7 % (0.0-10.0); %Lymphocytes 11.8 % (21.0-51.0); %Monocytes 11.1 % (0.0-10.0); %Neutrophils 75.2 % (42.0-75.0); Hemoglobin 10.7 g/dL (12.0-16.0); Mean Corpuscular HGB CONC 33.9 g/dL (32.0-36.0); Mean Corpuscular Hemoglobin 30.4 pg (27.0-31.0); Mean Corpuscular Volume 89.5 fL (78.0-98.0); Mean Platelet Volume 7.4 fL (7.4-10.4); Platelet Count 142 thou/uL (130-400); RBC Distribution Width 12.8 % (11.5-14.5); Red Blood Cell (RBC) Count 3.51 mill/uL (4.20-5.40); White Blood Cell (WBC) Count 6.7 thou/uL (4.8-10.8)
[2018-12-27 05:22] LABS: ALT (SGPT) 27 U/L (8-55); AST (SGOT) 30 U/L (5-34); Albumin 3.3 g/dL (3.5-5.0); Alkaline Phosphatase 72 U/L (40-150); Anion Gap 11 mmol/L (10-20); BUN (Urea Nitrogen) 4 mg/dL (7.0-18.7); Bilirubin, Direct 0.1 mg/dL (0.1-0.3); Bilirubin, Total 0.2 mg/dL (0.2-1.2); Calc. Creatinine Clearance 98 mL/min (70-130); Calcium 8.4 mg/dL (7.8-10.44); Carbon Dioxide 27 mmol/L (22-29); Chloride 101 mmol/L (98-107); Estimated GFR-MDRD Greater than 90; Glucose 85 mg/dL (70-105); Lipase 274 U/L (8-78); Magnesium 1.9 mg/dL (1.6-2.6); Potassium 3.4 mmol/L (3.5-5.1); Protein, Total 5.4 g/dL (6.0-8.3); Sodium 136 mmol/L (136-145)
[2018-12-27] MEDS: Levothyroxine Sodium 75 MCG TAB PO SCH (06:01)
[2018-12-27] MEDS ORDERED: Potassium Chloride 20 MEQ TAB PO SCH (07:15)
[2018-12-27] MEDS: Famotidine 20 MG TAB PO SCH (08:18)
[2018-12-27] MEDS: VYVANSE 60 MG PO SCH (08:18)
[2018-12-27] MEDS: NUVIGIL 250 MG PO SCH ×2 (08:18→11:37)
--- NOTE | 2018-12-27 10:44 | PDOC.PN ---
- Subjective Encounter Start Date: 12/27/18 (f/u abd pain) Encounter Start Time: 10:43 Subjective: Pt without complaints today - denies any n/v, reports pain is -: controlled with tylenol. - Objective Resuscitation Status - Order Detail: 12/22/18 22:16 Resuscitation Status Routine Resuscitation Status: FULL: Full Resuscitation Vital Signs & Weight: Vital Signs (12 hours) Temp Pulse Resp BP BP Pulse Ox 12/27/18 08:18 95 12/27/18 07:37 98.5 F 76 14 119/79 95 12/27/18 03:33 98.9 F 77 16 118/77 94 L 12/27/18 00:36 98.8 F 85 16 116/73 95 Weight Admit Weight 105 lb 5 oz Weight 108 lb 11.2 oz I&O: 12/26/18 12/27/18 12/28/18 06:59 06:59 06:59 Intake Total 1600 2000 Balance 1600 1999 Result Diagrams: 12/27/18 04:53 12/27/18 04:53 Phys Exam - Physical Examination Constitutional: NAD Respiratory: no wheezing, no rales, no rhonchi, clear to auscultation bilateral Cardiovascular: RRR, no significant murmur Gastrointestinal: soft Musculoskeletal: no edema, pulses present Neurological: non-focal Psychiatric: normal affect Dx/Plan (1) Abdominal pain Code(s): R10.9 - UNSPECIFIED ABDOMINAL PAIN Status: Acute (2) Anemia Code(s): D64.9 - ANEMIA, UNSPECIFIED Status: Acute (3) Leukopenia Code(s): D72.819 - DECREASED WHITE BLOOD CELL COUNT, UNSPECIFIED Status: Resolved (4) Narcolepsy Code(s): G47.419 - NARCOLEPSY WITHOUT CATAPLEXY Status: Chronic (5) Hypothyroid Code(s): E03.9 - HYPOTHYROIDISM, UNSPECIFIED Status: Chronic Qualifiers: Hypothyroidism type: unspecified Qualified Code(s): E03.9 - Hypothyroidism , unspecified (6) Hypokalemia Code(s): E87.6 - HYPOKALEMIA Status: Resolved (7) EDGARDO (acute kidney injury) Code(s): N17.9 - ACUTE KIDNEY FAILURE, UNSPECIFIED Status: Resolved (8) Malnutrition Code(s): E46 - UNSPECIFIED PROTEIN-CALORIE MALNUTRITION Status: Acute Qualifiers: Malnutrition type: protein-calorie malnutrition Protein-calorie malnutrition severity: moderate Qualified Code(s): E44.0 - Moderate protein- calorie malnutrition - Plan s/p cholecystectomy with Gen Surgery * post-op care per Gen Surgery * * replace potassium * * dvt prophy - ambulatory and scd's * gi prophy - not indicated * code status full * * From hospitalist perspective pt overall doing well and can be discharged when cleared by General Surgery
--- NOTE | 2018-12-27 10:58 | PRG ---
DATE OF SERVICE: 12/27/2018 SUBJECTIVE: The patient is a 38-year-old female, admitted due to abdominal pain with diagnosis of pancreatitis, cholecystitis. The patient underwent laparoscopy cholecystectomy on 12/26/2018. Postop, the patient is doing well. No fever. Pain is well controlled. She is able to pass gas, but no bowel movement. No shortness of breath. OBJECTIVE: GENERAL: The patient is a pleasant lady. She is able to walk around the room. No sign of acute distress. VITAL SIGNS: Temperature 98, respiratory rate is 14, heart rate 76, O2 saturation 95% on room air, and blood pressure 120/80. LUNGS: Clear bilaterally. HEART: Regular rate and rhythm. ABDOMEN: Soft and nondistended. Mild tenderness on the suture site. EXTREMITIES: Neurovascular intact. NEUROLOGIC: GCS 15. No neurological deficits. DIAGNOSIS: Acute pancreatitis, stable. Acute cholecystitis. Postop cholecystectomy day #1. PLAN: Advance diet today. Pain control. If the patient is doing well, she might be able to go home today or tomorrow. Job ID: [id number] [facility]
[2018-12-27 12:22] VITALS: BP 124/80; TEMP 98.2
--- NOTE | 2018-12-27 21:35 | DIS ---
DATE OF ADMISSION: 12/22/2018 DATE OF DISCHARGE: 12/27/2018 CONSULTANTS: 1. GI, Dr. Hankins. 2. General Surgery, Dr. Brady. MEDICATIONS: Provided at discharge. New medications are: 1. Tylenol 1000 mg every 6 hours as needed. 2. Famotidine 20 mg twice daily. Prescriptions provided by Jen AGUILA, of the General Surgery team. Medications to resume are: 1. Xyrem 3 g at bedtime. 2. Abilify 2.5 mg at bedtime. 3. Vyvanse 60 mg daily. 4. Nuvigil 250 mg daily. 5. Levothyroxine 75 mcg daily. FINAL DIAGNOSES: 1. Pancreatitis, resolved. 2. Acute on chronic acalculous cholecystitis, now status post cholecystectomy on December 26. 3. Acute kidney injury, resolved. 4. Hypokalemia, severe, resolved. 5. Starvation ketosis. 6. Moderate protein-calorie malnutrition secondary to above. 7. Headache secondary to fall. 8. Anemia, mild. 9. Nonspecific abnormality of the left hepatic lobe with recommendation for outpatient abdominal MRI with and without contrast. SECONDARY DIAGNOSES: 1. Hypothyroidism. 2. Narcolepsy and cataplexy. 3. History of cardiomyopathy. 4. Chronic kidney disease, stage 2. 5. Depression. 6. Abnormal area on the left hepatic lobe, which needs follow up MRI in the outpatient setting with primary care. HISTORY OF PRESENT ILLNESS: Ms. Figueroa is a 38-year-old female, who presented to the emergency room with persistent abdominal pain, nausea, vomiting, and decreased p.o. intake. She had been seen a few times prior to this and was discharged to home, receiving Zofran for symptomatic treatment. She was redirected to the emergency room due to severe dehydration and hypokalemia, elevated creatinine and elevated lipase. She was admitted for these reasons. HOSPITAL COURSE: The patient was hydrated with IV fluids, potassium has been replaced, and she has undergone multiple studies to include an abdominal ultrasound, hepatobiliary scan with nuclear medicine which demonstrated acalculous cholecystitis and biliary dyskinesia. She underwent an EGD on December 25 which was normal and a laparoscopic cholecystectomy with Dr. Brady on December 26. Her postoperative recovery has been uneventful. The patient reports that she overall feels well and the postsurgical pain is less intense than the pain she experienced prior to surgery. She is tolerating a diet and was discharged to home by General Surgery. On the day of discharge, her potassium was mildly low and replaced orally. Her magnesium level is normal and her LFTs are normal. PHYSICAL EXAMINATION: On the day of discharge, please see the note on the chart. [facility]IMES FINDINGS AND TEST RESULTS: CBC; 6.7, 10.7, 31.442. Chemistry; 136, 3.4, 101, 27, 40.6, 85. Total protein 5.4, albumin 3.3. Lipase 274. The patient's potassium at the lowest was 2.2, creatinine at the highest was 1.13, and lipase at the highest was 733 with an amylase of 182. Beta hydroxybutyrate on admission was 5.49 and on December 24 was 0.36. EGD on December 26 was normal. Hepatobiliary nuclear medicine scan showed chronic acalculous cholecystitis and gallbladder dyskinesia on December 24. Abdominal ultrasound on December 23 shows low level echoes of gallbladder which may be sludge or cholelithiasis, focal area of increased echogenicity in the left hepatic lobe which may be focal fatty infiltration, although nonspecific with recommendation for abdominal MRI. Brain CT on December 23, no acute abnormality. DIET: Regular. ACTIVITY: No heavy lifting more than 20 pounds or soaking in a tub for 2 weeks. FOLLOWUP: 1. Followup is with Dr. Brady in 2 weeks. 2. Followup is with the primary care provider, Dr. Vincent, for re-evaluation as well as to follow up on the hepatic lobe nonspecific abnormality. CODE STATUS: Full. DISCHARGE DISPOSITION: Home. Job ID: [id number]
--- NOTE | 2018-12-28 03:00 | DIS ---
DATE OF ADMISSION: 12/22/2018 DATE OF DISCHARGE: 12/27/2018 ADMITTING DIAGNOSIS: 1. Acute pancreatitis. 2. Acute cholecystitis. DISCHARGE DIAGNOSES: 1. Acute pancreatitis, stable. 2. Acute cholecystitis, removed. Postop cholecystectomy, laparoscopy day #1. Stable. CONSULTING PHYSICIAN: Dr. Jose Brady, general surgeon. PROCEDURE: Laparoscopic cholecystectomy. HOSPITAL COURSE: The patient is a 38-year-old female coming for evaluation of abdominal pain. The patient was diagnosed with acute pancreatitis, cholecystitis. Her pancreatitis was stable during the treatment course in the hospital and she underwent laparoscopic cholecystectomy yesterday. Her postop is uncomplicated. She is able to tolerated with regular diet. She has gas and her bowel sounds are normal. No fever was noted. Her lipase is decreased to a normal range. All the lab results are stable. DISCHARGE DISPOSITION: Home. DISCHARGE CONDITION: Satisfactory. DISCHARGE PHYSICAL EXAMINATION: VITAL SIGNS: Temperature 98, pulse 100, respiratory rate 15, O2 saturation 97 on room air, blood pressure 124/80. LUNGS: Clear bilaterally. CARDIAC: Regular rate and rhythm. No murmur. GASTROINTESTINAL: Abdomen is soft. Mildly tender in the incision site. Nondistended. EXTREMITIES: 2+ pules in all extremities. No significant swelling noted. DISCHARGE INSTRUCTIONS: The patient will be discharged with OTC pain medications, Tylenol and ibuprofen. The patient is instructed to not to soak or bathtub in 2 weeks. Also instructed not to heavy lifting more than 20 pounds in 2 weeks. DISCHARGE MEDICATIONS: 1. Tylenol. 2. Ibuprofen. FOLLOWUP APPOINTMENT: She is to follow up with Dr. Brady in 2 weeks. Job ID: [id number] [facility]
--- NOTE | 2018-12-28 11:48 | PRG ---
DATE OF SERVICE: 12/26/2018 SUBJECTIVE: The patient is _38 years old female who was coming for evaluation of _ abdominal pain_ with diagnosis of _pancreatitis - cholecystitis_ underwent _pancreatitis conservative treatment____ Patient has been doing well Overnight event: _no Ambulation: __yes Nausea/vomiting: __no Pain: _well controlled Fever: ___no Shortness of breath: ____no Having bowel movement: __no OBJECTIVE: VITAL SIGNS: Current temperature: __98 Current heart rate: ____88 Current blood pressure: ___120/80 Current respiratory rate: ___16 Current O2 sats: ____98 GENERAL: Well appearing, alert and awake, in no acute respiratory distress. HEENT: Normocephalic, atraumatic. RESPIRATORY: No respiratory distress. Lungs clear to auscultation bilaterally. CARDIOVASCULAR: Regular rate and rhythm. ABDOMEN: Soft, nontender, and nondistended. No deformity. Rebound and guarding negative. EXTREMITIES: Warm and well perfused. NEUROLOGIC: Intact neurologically. Oriented x3. IMAGING RESULTS: No new imaging to be reviewed. ASSESSMENT: acute pancreatitis stable Acute cholecystitis post op lap cholecystectomy PLAN: Pharmacological management: pain control Intervention to be ordered: supportive Continue to be working with PT/OT. Continue prophylaxis regimen, spirometer incentive, DVT prophylaxis, gastritis prophylaxis. Placement plan: discharge home after tolerate diet and pain is well control Job ID: [id number] [facility]
== END 2018-12-27 13:05 | disposition home or self-care (01) | DRG 418 ==
LOC: SCSER 12:38 → 2NO 14:33 → EEVIPCON 14:33 → SURG A 12-24 14:08
PROVIDERS: ADMIT Internal Medicine; ATTEND Internal Medicine
PROC: 0DJ08ZZ Inspection of Upper Intestinal Tract, Via Natural or Artificial Opening Endoscopic (ICD-10-PCS; 2018-12-25)
PROC: 0FT44ZZ Resection of Gallbladder, Percutaneous Endoscopic Approach (ICD-10-PCS; principal; 2018-12-26)
DX: K85.90 Acute pancreatitis without necrosis or infection, unspecified (principal); N17.9 Acute kidney failure, unspecified; E87.2 Acidosis; E87.1 Hypo-osmolality and hyponatremia; E44.0 Moderate protein-calorie malnutrition; K81.0 Acute cholecystitis; Z68.1 Body mass index [BMI] 19.9 or less, adult; E86.0 Dehydration; E87.6 Hypokalemia; F32.9 Major depressive disorder, single episode, unspecified; E03.9 Hypothyroidism, unspecified; N18.2 Chronic kidney disease, stage 2 (mild); G47.411 Narcolepsy with cataplexy; E88.89 Other specified metabolic disorders; R51 Headache; D64.9 Anemia, unspecified; K81.1 Chronic cholecystitis; Z90.710 Acquired absence of both cervix and uterus; Z88.5 Allergy status to narcotic agent; Z88.8 Allergy status to other drugs, medicaments and biological substances
CPT/HCPCS: 36415; 70450; 76705; 78227; 80048; 80053; 80061; 80076; 82010; 82150; 83605; 83690; 83735; 84100; 84703; 85007; 85025; 85027; 87081; 87430; 88304; 96361; 96365; 96366; 99283; A9537; C9113; J0131; J0670; J0694; J1100; J1200; J1885; J2001; J2250; J2405; J2550; J2704; J3010; J3475; J3480; J3490; J7050; Q0162; S0028

== ENCOUNTER 2019-01-02 14:06 | Emergency (ER) | payer MEDICARE ==
[2019-01-02] MEDS ORDERED: Ondansetron PF 4 MG/2 ML Vial ONE (14:39)
[2019-01-02] MEDS ORDERED: Famotidine/PF 20 mg/2ml Vial ONE (14:39)
[2019-01-02 14:46] LABS: #Basophils 0.1 thou/uL (0.0-0.2); #Lymphocytes 1.1 thou/uL (1.20-3.40); #Monocytes 0.4 thou/uL (0.11-0.59); #Neutrophils 2.3 thou/uL (1.40-6.50); %Basophils 1.4 % (0.0-1.0); %Eosinophils 0.6 % (0.0-10.0); %Lymphocytes 28.7 % (21.0-51.0); %Monocytes 9.2 % (0.0-10.0); %Neutrophils 60.1 % (42.0-75.0); Hemoglobin 12.7 g/dL (12.0-16.0); Mean Corpuscular Hemoglobin 29.7 pg (27.0-31.0); Mean Corpuscular Volume 89.9 fL (78.0-98.0); Mean Platelet Volume 6.5 fL (7.4-10.4); Platelet Count 422 thou/uL (130-400); RBC Distribution Width 12.9 % (11.5-14.5); Red Blood Cell (RBC) Count 4.29 mill/uL (4.20-5.40); White Blood Cell (WBC) Count 3.9 thou/uL (4.8-10.8)
[2019-01-02 14:54] LABS: Bilirubin Small (Negative); Blood, Urine Negative (Negative); Clarity Slightly Cloudy (Clear); Glucose, Urine (Dipstick) Negative (Negative); Leukocyte Negative (Negative); Nitrite Negative (Negative); Protein, Urine (Dipstick) 30 mg/dL (Neg-Trace)
[2019-01-02 14:56] LABS: Bacteria/HPF 1+ HPF (None Seen); Mucous/LPF 1+ LPF (<2+); RBC/HPF 0-3 HPF (0-3); Squamous Epithelial 0-3 HPF (0-3); WBC/HPF 0-3 HPF (0-3)
[2019-01-02 15:01] LABS: ALT (SGPT) 21 U/L (8-55); AST (SGOT) 15 U/L (5-34); Albumin 3.9 g/dL (3.5-5.0); Alkaline Phosphatase 90 U/L (40-150); Anion Gap 19 mmol/L (10-20); BUN (Urea Nitrogen) 6 mg/dL (7.0-18.7); Bilirubin, Total 0.2 mg/dL (0.2-1.2); CK (CPK) 35 U/L (29-168); Calc. Creatinine Clearance 0 mL/min (70-130); Carbon Dioxide 24 mmol/L (22-29); Chloride 101 mmol/L (98-107); Estimated GFR-MDRD Greater than 90; Globulin 3.1 g/dL (2.4-3.5); Glucose 81 mg/dL (70-105); Lipase 150 U/L (8-78); Potassium 3.7 mmol/L (3.5-5.1); Sodium 140 mmol/L (136-145)
== END 2019-01-02 17:30 | disposition home or self-care (01) ==
LOC: SCSER 14:06
DX: R11.2 Nausea with vomiting, unspecified (principal); E03.9 Hypothyroidism, unspecified; F41.9 Anxiety disorder, unspecified; F32.9 Major depressive disorder, single episode, unspecified; Z79.899 Other long term (current) drug therapy
CPT/HCPCS: 80053; 81003; 81015; 82550; 83690; 84484; 85025; 87086; 93005; 96361; 96374; 96375; J2405; S0028

== ENCOUNTER 2019-01-03 14:19 | Emergency (ER) | payer MEDICARE ==
[~2019-01-03 14:19] MED LIST: ISOVUE-370 76%-LOCM 1 ML ONE; Iopamidol 370 76% 50 ML VIAL FS ONE
[2019-01-03 14:56] LABS: #Lymphocytes 0.8 thou/uL (1.20-3.40); #Monocytes 0.3 thou/uL (0.11-0.59); #Neutrophils 4.7 thou/uL (1.40-6.50); %Basophils 0.2 % (0.0-1.0); %Eosinophils 0.3 % (0.0-10.0); %Lymphocytes 12.9 % (21.0-51.0); %Monocytes 5.6 % (0.0-10.0); Hemoglobin 12.4 g/dL (12.0-16.0); Mean Corpuscular HGB CONC 33.7 g/dL (32.0-36.0); Mean Corpuscular Hemoglobin 30.8 pg (27.0-31.0); Mean Corpuscular Volume 91.5 fL (78.0-98.0); Mean Platelet Volume 6.7 fL (7.4-10.4); Platelet Count 474 thou/uL (130-400); RBC Distribution Width 12.5 % (11.5-14.5); Red Blood Cell (RBC) Count 4.02 mill/uL (4.20-5.40); White Blood Cell (WBC) Count 5.8 thou/uL (4.8-10.8)
[2019-01-03 14:59] LABS: Bilirubin Negative (Negative); Blood, Urine Negative (Negative); Clarity Clear (Clear); Glucose, Urine (Dipstick) Normal (Negative); Leukocyte Negative Leu/uL (Negative); Nitrite Negative (Negative); Protein, Urine (Dipstick) Negative (Neg-Trace); Urobilinogen Normal mg/dL (Less than 2)
[2019-01-03 15:15] LABS: ALT (SGPT) 21 U/L (8-55); AST (SGOT) 15 U/L (5-34); Albumin 4.1 g/dL (3.5-5.0); Alkaline Phosphatase 91 U/L (40-150); Anion Gap 19 mmol/L (10-20); BUN (Urea Nitrogen) 7 mg/dL (7.0-18.7); Bilirubin, Total 0.3 mg/dL (0.2-1.2); Calc. Creatinine Clearance 0 mL/min (70-130); Calcium 9.1 mg/dL (7.8-10.44); Carbon Dioxide 17 mmol/L (22-29); Chloride 104 mmol/L (98-107); Estimated GFR-MDRD 78; Globulin 2.8 g/dL (2.4-3.5); Glucose 68 mg/dL (70-105); Lipase 87 U/L (8-78); Potassium 4.1 mmol/L (3.5-5.1); Protein, Total 6.9 g/dL (6.0-8.3); Sodium 136 mmol/L (136-145)
[2019-01-03] MEDS ORDERED: Ondansetron PF 4 MG/2 ML Vial ONE (16:26)
--- NOTE | 2019-01-03 19:18 | CT ---
CT ABDOMEN AND PELVIS: 01/03/2019 HISTORY: Abdominal pain. Prior pancreatectomy. History of pancreatitis. COMPARISON: None. TECHNIQUE: Axial CT imaging obtained at 5 mm intervals from the lung bases through the pubic symphysis, with IV and oral contrast. Coronal reformatted imaging obtained. FINDINGS: The visualized lung bases are unremarkable. No free intraperitoneal air noted. Cholecystectomy clip s are present. The hepatic parenchyma is diffusely hypodense, evidence of hepatic steatosis. The sp johanna, pancreas, adrenal glands, and kidneys appear grossly unremarkable. There is small volume free fluid in the pelvic cul-de-sac. There are areas in which the colonic wall appears thickened, particularly in the region of the cecum/ ascending colon, as well as within the region of the descending colon. There is also diffuse, subtle stranding of the mesenteric fat throughout the abdomen/pelvis, most prominent in the areas of coloni c wall prominence. There is no evidence for small bowel obstruction. No evidence for abscess is emely arent. The appendix is difficulty to discretely visualize, but no evidence for appendicitis is appreciated. The vascular structures of the abdomen/pelvis appear patent. No lymphadenopathy is seen within the a bdomen/pelvis. The osseous structures demonstrate no acute findings. IMPRESSION: 1. Mesenteric fat stranding and colonic wall prominence suggests nonspecific colitis, as detailed ab ove. 2. Hepatic steatosis. 3. No free intraperitoneal air or evidence of small bowel obstruction. 4. The pancreas demonstrates a grossly unremarkable CT appearance. This does not exclude pancreatit is. Correlation with laboratory assessment would be required. POS: MARCELINO
== END 2019-01-03 20:10 | disposition home or self-care (01) ==
LOC: ERS 14:19
DX: K52.9 Noninfective gastroenteritis and colitis, unspecified (principal); E03.9 Hypothyroidism, unspecified; F41.9 Anxiety disorder, unspecified; Z79.899 Other long term (current) drug therapy
CPT/HCPCS: 36415; 74177; 80053; 81003; 83690; 85025; 96361; 96374; J2405; Q9966; Q9967

== ENCOUNTER 2019-01-04 09:19 | Inpatient (IN) | payer MEDICARE ==
[2019-01-04] MEDS ORDERED: Ondansetron PF 4 MG/2 ML Vial ONE (10:08)
[2019-01-04 10:13] LABS: #Lymphocytes 0.7 thou/uL (1.20-3.40); #Monocytes 0.4 thou/uL (0.11-0.59); #Neutrophils 4.1 thou/uL (1.40-6.50); %Basophils 0.1 % (0.0-1.0); %Eosinophils 0.3 % (0.0-10.0); %Lymphocytes 12.6 % (21.0-51.0); %Neutrophils 79.1 % (42.0-75.0); Hemoglobin 11.8 g/dL (12.0-16.0); Mean Corpuscular HGB CONC 32.4 g/dL (32.0-36.0); Mean Corpuscular Hemoglobin 29.5 pg (27.0-31.0); Mean Corpuscular Volume 91.3 fL (78.0-98.0); Mean Platelet Volume 6.3 fL (7.4-10.4); Platelet Count 480 thou/uL (130-400); RBC Distribution Width 12.5 % (11.5-14.5); Red Blood Cell (RBC) Count 3.98 mill/uL (4.20-5.40); White Blood Cell (WBC) Count 5.2 thou/uL (4.8-10.8)
[2019-01-04 10:28] LABS: ALT (SGPT) 19 U/L (8-55); AST (SGOT) 12 U/L (5-34); Albumin 4.1 g/dL (3.5-5.0); Alkaline Phosphatase 89 U/L (40-150); Anion Gap 22 mmol/L (10-20); BUN (Urea Nitrogen) 5 mg/dL (7.0-18.7); Bilirubin, Total 0.2 mg/dL (0.2-1.2); Calc. Creatinine Clearance 0 mL/min (70-130); Calcium 9.2 mg/dL (7.8-10.44); Carbon Dioxide 14 mmol/L (22-29); Chloride 102 mmol/L (98-107); Estimated GFR-MDRD 62; Globulin 2.7 g/dL (2.4-3.5); Glucose 80 mg/dL (70-105); Lipase 71 U/L (8-78); Potassium 4.2 mmol/L (3.5-5.1); Protein, Total 6.8 g/dL (6.0-8.3); Sodium 134 mmol/L (136-145)
[2019-01-04] MEDS ORDERED: Ondansetron ODT 4 MG TAB SL PRN ×2 (11:00→13:29)
[2019-01-04] MEDS ORDERED: Acetaminophen 325 MG TAB PO PRN ×3 (11:00→13:47)
[2019-01-04] MEDS ORDERED: Ondansetron PF 4 MG/2 ML Vial IVP PRN ×2 (11:00→13:29)
[2019-01-04 11:22] LABS: Bilirubin Negative (Negative); Blood, Urine Negative (Negative); Clarity Clear (Clear); Glucose, Urine (Dipstick) Normal (Negative); Leukocyte Negative Leu/uL (Negative); Nitrite Negative (Negative); Protein, Urine (Dipstick) 10 mg/dL (Neg-Trace); Urobilinogen Normal mg/dL (Less than 2)
[2019-01-04] MEDS ORDERED: D5 1/2 NS w/20 mEq KCL 1,000 ML IV SCH (13:30)
[2019-01-04] MEDS ORDERED: Bisacodyl 5 MG TAB PO PRN (13:47)
[2019-01-04] MEDS ORDERED: Sodium Chloride 0.65% Nasal 44 ML BOT EA NARE PRN (13:47)
[2019-01-04] MEDS ORDERED: Nitroglycerin 0.4 MG TAB (25 Tab Bottle) SL PRN (13:47)
[2019-01-04] MEDS ORDERED: Benzonatate 100 MG CAP PO PRN (13:47)
[2019-01-04] MEDS ORDERED: hydrALAZINE 20 MG/ML VIAL SLOW IVP PRN (13:47)
[2019-01-04] MEDS ORDERED: Senokot S 8.6-50 MG TAB PO PRN ×2 (13:47)
[2019-01-04] MEDS ORDERED: Ondansetron ODT 4 MG TAB PO PRN ×2 (13:47→19:29)
[2019-01-04] MEDS ORDERED: Diabetic Tussin 200 MG/10 ML UDCUP PO PRN (13:47)
[2019-01-04] MEDS ORDERED: cloNIDine 0.1 MG TAB PO PRN (13:47)
[2019-01-04] MEDS: D5 1/2 NS w/20 mEq KCL 1,000 ML IV SCH ×2 (14:22→21:07)
[2019-01-04] MEDS: Sodium Chloride 0.9% 1,000 ML IV SCH ×2 (14:48→21:06)
[2019-01-04] MEDS ORDERED: Promethazine HCl 25 MG/ML VIAL IM/IV PRN (14:54)
[2019-01-04] MEDS ORDERED: Pantoprazole 40 MG VIAL IVP SCH (15:00)
--- NOTE | 2019-01-04 20:19 | HP ---
CHIEF COMPLAINT: Persistent nausea and vomiting. HISTORY OF PRESENTING ILLNESS: Ms. Figueroa is a 38-year-old female, who was recently admitted to our facility from 12/22/2018 to 12/27/2018 and was discharged home. She was admitted at that time for complaints of nausea, vomiting, and was diagnosed with pancreatitis. She underwent laparoscopic cholecystectomy at that time by Dr. Brady for cholelithiasis. She was discharged home in a stable condition. She came back to the ER because she reports that her symptoms have not gotten any better despite the treatment of acute pancreatitis, which was likely biliary and laparoscopic cholecystectomy. In fact, she has presented to the ER consecutively for the last 3 days for the symptoms. A CT scan of abdomen and pelvis was done in the ER yesterday, which showed possible colitis, but no evidence of acute changes otherwise. Her lipase, which was minimally elevated during her last hospitalization has normalized and all of her blood work has been unremarkable. Urinalysis was also negative. Because of inability to discharge her third time from the ER, she is now being admitted under observation status for fluid resuscitation and further workup. During her last hospitalization, she has undergone GI workup as well by Dr. Hankins. She had an endoscopy done, which was remarkably normal. No biopsies were taken. The patient reports about a 10-pound weight loss since her symptoms started late November. Prior to that, she reports having been leading a normal life. She has three children, two of them are teenagers and she is the sole provider for them. She reports history of some anxiety and depression, but does not open up much about it. She denies any other illnesses since her discharge. She also complains of significant abdominal pain, but no diarrhea. She is mildly constipated. No fever. No chills. She denies any sick contacts. Past medical history, past surgical history, social history, and family history, please see H and P dictated by Dr. Flores on 12/22/2018 for full details. Since then, she has undergone a laparoscopic cholecystectomy as well as EGD during last hospitalization. Nothing has changed. HOME MEDICATIONS: Unchanged. She is on following, 1. Abilify 2.5 mg at bedtime. 2. Nuvigil 250 mg twice a day. 3. Vyvanse 60 mg in the morning. 4. Synthroid 75 mcg daily. 5. Xyrem 3 g p.o. at bedtime. REVIEW OF SYSTEMS: A 14-point review of system is done, which is negative for anything except mentioned in the HPI. LABORATORY DATA: Today, CBC unremarkable. Serum chemistry unremarkable. Lipase 71. Sodium 134, bicarb 14, anion gap 22, BUN is low at 5, creatinine normal. Urinalysis shows ketones. PHYSICAL EXAMINATION: VITAL SIGNS: Upon presentation, blood pressure 115/64, pulse of 96, respirations 18, saturating 100% on room air, and temperature 98.5. GENERAL: No acute distress. She appears thin, pale, cachectic, but in no acute distress. Awake, alert, and oriented x3. HEENT: Mucous membranes are surprisingly moist. No oropharyngeal exudate or erythema. Head is normocephalic and atraumatic. Pupils are equal and reactive to light and accommodation. Extraocular movement intact. NECK: Supple without any lymphadenopathy, JVD, or bruit. CHEST: Clear to auscultation without any wheezing, rales, or rhonchi. HEART: Rate and rhythm is regular without any murmurs, rubs, or gallops. ABDOMEN: Tender to palpation throughout the abdomen without any obvious swelling or ascites. EXTREMITIES: Free of any cyanosis, clubbing, or edema. NEUROLOGIC: Nonfocal. SKIN: Free of any rashes or bruises. Feels warm and dry to touch. PSYCHIATRIC: Normal to depressed affect. IMPRESSION AND PLAN: 1. Persistent nausea and vomiting. No clear etiology is identifiable at this time. The patient's symptoms started prior to her pancreatitis and diagnosis of cholelithiasis. Small possibilities that she has postcholecystectomy early syndrome with either biliary duct injury or retained CBD stone. Her esophagogastroduodenoscopy was normal last admission. She never has had a colonoscopy, but her symptoms are not really suggestive of irritable bowel disease. There is no family history of such. Psychiatric component can also not be ruled out as the patient does exhibit a body habitus of anorexic or bulimic patients. However, since organic pathology at this time cannot be ruled out, we will consult Gastroenterology for further recommendations. We will resuscitate her gently with IV fluids, even though she is not overtly dehydrated. She may need gastric emptying study, ovarian swallow study to ascertain dyskinesis or slow emptying of the stomach if her symptoms do not resolve. 2. Anion gap metabolic acidosis, most likely due to vomiting. I gave her IV fluids and monitor and recheck in the morning. 3. Hypothyroidism. Restart levothyroxine. 4. History of narcolepsy and attention deficit disorder. We will restart her home medications. DISPOSITION: Ms. Figueroa is currently being admitted to the hospital with persistent nausea, vomiting, despite recent workup. She is under observation status for now. Further management will depend upon her clinical course and recommendations from Gastroenterology Team. Job ID: [id number]
[2019-01-04] MEDS ORDERED: SODIUM OXYBATE PO SCH ×2 (21:00)
[2019-01-04] MEDS: Aripiprazole 2 MG TAB PO SCH (21:07)
[2019-01-04] MEDS: Levothyroxine Sodium 75 MCG TAB PO SCH (22:54)
[2019-01-04] MEDS ORDERED: XYREM PO SCH (23:59)
[2019-01-05] MEDS: Vancomycin HCl 750 MG in Sodium Chloride 0.9% 250 ML 250 ML IVPB SCH ×2 (00:56→13:41)
[2019-01-05] MEDS ORDERED: NUVIGIL 250 MG PO SCH ×5 (08:00→14:45)
--- NOTE | 2019-01-05 08:58 | CON ---
DATE OF CONSULTATION: 01/04/2019 REASON FOR CONSULTATION: Persistent nausea and vomiting. HISTORY OF PRESENT ILLNESS: Mena Figueroa is a very pleasant 38-year-old female seen by me two weeks ago because of abdominal pain, nausea, and vomiting. She was found to have evidence of pancreatitis and gallstones. The patient was seen by Dr. Brady and he felt an endoscopy should be done to rule out any other cause because of weight loss. She had an EGD done on 12/25/2018. The EGD was basically negative. The following day, she underwent laparoscopic cholecystectomy and she was sent home. She says after she went home, okay for few days, then nausea and vomiting. Does believe nausea and vomiting become worse in the morning. During the daytime, she does not have much vomiting but during night especially when she wakes up in the morning, it starts waking up. She has abdominal soreness from the surgery. Otherwise, she is not having abdominal pain. She had constipation for several days. She had a stool yesterday and no known stool today. She is not able to keep anything down, although she is basically on clear liquid diet. She came to the ER yesterday and had abdominal CAT scan. The CAT scan shows basically no abnormal findings except for some thickening of the colon with colitis . interestingly , she has no diarrhea, no hematochezia. She has mild constipation. Also, the lab data basically normal or borderline. No other relevant history. ALLERGIES: DILANTIN, MORPHINE. SOCIAL HISTORY: The patient does not smoke or drink alcohol. MEDICAL HISTORY: 1. Hypothyroidism. 2. Narcolepsy with cataplexy. 3. cardiomyopathy. 4. Anxiety. MEDICATIONS: Reviewed. REVIEW OF SYSTEMS: Notable for nausea and vomiting the last several days. She has also had constipation. She had stool yesterday and today. No diarrhea or hematochezia. PHYSICAL EXAMINATION: GENERAL: She is thin built, appears very comfortable, in no acute distress. VITAL SIGNS: Afebrile, pulse is 90, blood pressure 110/70. HEENT: Conjunctivae clear. NECK: Supple. No adenitis or thyromegaly noted. CARDIOVASCULAR SYSTEM: First and second heart sounds normal. LUNGS: Clear to auscultation. ABDOMEN: Soft. Abdomen is nondistended. Abdomen is tender over the operative site. Abdomen is overall benign. No rebound or guarding. Bowel sounds normal. LABORATORY DATA: Lab data shows no abnormal findings. Her liver function tests are normal. She has normal CBC. Lipase is borderline at 71. Abdominal CAT scan shows no abdominal findings or thickening of the colon . However, she has no signs of colitis. No diarrhea or hematochezia. CLINICAL IMPRESSION: 1. A 38-year-old female with nausea and vomiting, which is persisting for the last several days. She had a laparoscopic cholecystectomy on 12/26/2018. I am not sure what is causing her nausea and vomiting . 2. Repeat EGD possibly tomorrow. I will make further recommendation after EGD. Job ID: [id number] [facility]
[2019-01-05] MEDS ORDERED: LISDEXAMFETAMINE DIMESYLATE 60 MG PO SCH (09:00)
[2019-01-05] MEDS ORDERED: Enoxaparin Sodium 40 MG/0.4 ML SYRINGE SC SCH (09:00)
[2019-01-05] MEDS ORDERED: VYVANSE 60 MG PO SCH ×2 (09:00)
[2019-01-05] MEDS ORDERED: ARMODAFINIL 250 MG PO SCH (09:00)
[2019-01-05] MEDS: VYVANSE 60 MG PO SCH ×2 (09:11→10:13)
[2019-01-05] MEDS: Pantoprazole 40 MG VIAL IVP SCH (09:18)
[2019-01-05 09:19] LABS: #Lymphocytes 0.9 thou/uL (1.20-3.40); #Monocytes 0.3 thou/uL (0.11-0.59); #Neutrophils 2.3 thou/uL (1.40-6.50); %Basophils 0.9 % (0.0-1.0); %Eosinophils 0.6 % (0.0-10.0); %Lymphocytes 24.6 % (21.0-51.0); %Monocytes 9.2 % (0.0-10.0); %Neutrophils 64.6 % (42.0-75.0); Hemoglobin 11.9 g/dL (12.0-16.0); Mean Corpuscular HGB CONC 33.3 g/dL (32.0-36.0); Mean Corpuscular Hemoglobin 30.2 pg (27.0-31.0); Mean Corpuscular Volume 90.7 fL (78.0-98.0); Mean Platelet Volume 6.5 fL (7.4-10.4); Platelet Count 410 thou/uL (130-400); Red Blood Cell (RBC) Count 3.94 mill/uL (4.20-5.40); White Blood Cell (WBC) Count 3.5 thou/uL (4.8-10.8)
[2019-01-05 09:41] LABS: Anion Gap 17 mmol/L (10-20); BUN (Urea Nitrogen) Less than 4 mg/dL (7.0-18.7); Calc. Creatinine Clearance 69 mL/min (70-130); Calcium 8.8 mg/dL (7.8-10.44); Carbon Dioxide 15 mmol/L (22-29); Chloride 111 mmol/L (98-107); Estimated GFR-MDRD 74; Glucose 93 mg/dL (70-105); Potassium 3.9 mmol/L (3.5-5.1); Sodium 139 mmol/L (136-145)
--- NOTE | 2019-01-05 12:39 | PDOC.PALCO ---
Palliative Care Consult - Consult Details Requesting Physician: Dr Wayne Reason for Consult: coping issues - Pertinent HPI Readmission back to hospital secondary to nausea, vomiting, and weight loss. Patient presented to the emergency room three consecutive days prior to this admission. Patient was previously admitted for the same symptoms 12/22 and diagnosed with acute pancreatitis. CT this admission showed possible colitis. This admission was for fluid resuscitation and further evaluation. Consult to palliative care for assistance with coping issues. Patient mother unexpectedly in her sleep 1112 years ago. In approximation of the same time patient reports having debilitating fatigue resulting in the diagnosis of narcolepsy. 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 Daughter (8or 9) at bedside. Ms Figueroa is mildly lethargic for conversation with flat affect. States her support system is her best friend and her father who both live here. Denies nausea/vomiting/loose stools/ab pain at this time. States nausea with emesis that consists of bile is nocturnal in nature and not related to intake of food at this time. - Pertinent [facility] Pancreatitis diagnosis in November 2018, previously healthy. History of narcolepsy/ cataplexy and distant history of depression/anxiety as per patient, hypothyroid. - Social History Smoking Status: Never smoker Smoking: no tobacco exposure Alcohol Use: none Drug Use History: none Living Situation: independent, dependent child (patient has three children that live with her. ) - Allergies Allergies/Adverse Reactions: Allergies Allergy/AdvReac Type Severity Reaction Status Date / Time morphine Allergy Verified 12/22/18 23:58 phenytoin [From Dilantin] Allergy Verified 01/04/19 14:41 - Subjective Readmission back to hospital secondary to nausea, vomiting, and weight loss. Patient presented to the emergency room three consecutive days prior to this admission. Patient was previously admitted for the same symptoms 12/22 and diagnosed with acute pancreatitis. CT this admission showed possible colitis. This admission was for fluid resuscitation and further evaluation. Consult to palliative care for assistance with coping issues. Patient mother unexpectedly in her sleep 1112 years ago. In approximation of the same time patient reports having debilitating fatigue resulting in the diagnosis of narcolepsy. 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 Daughter (8or 9) at bedside. Ms Figueroa is mildly lethargic for conversation with flat affect. States her support system is her best friend and her father who both live here. Denies nausea/vomiting/loose stools/ab pain at this time. States nausea with emesis that consists of bile is nocturnal in nature and not related to intake of food at this time. - Objective Vital Signs: Vital Signs - Most Recent Temp Pulse Resp BP Pulse Ox 97.8 F 94 14 120/78 97 01/05/19 08:00 01/05/19 08:00 01/05/19 08:00 01/05/19 08:00 01/05/19 08:00 - Physical Exam Constitutional: NAD Deviation from normal: mildly lethargic, thin HEENT: PERRLA, moist MMs, EOMI Respiratory: no wheezing, clear to auscultation bilateral, unlabored breathing Cardiovascular: RRR Gastrointestinal: soft, positive bowel sounds Musculoskeletal: no edema Neurological: normal sensation Lymphatic: no nodes Deviation from normal: flat affect, mildly apathetic Skin: normal turgor - Problem List (1) Palliative care encounter Code(s): Z51.5 - ENCOUNTER FOR PALLIATIVE CARE Current Visit: Yes Status: Acute (2) Malnutrition Code(s): E46 - UNSPECIFIED PROTEIN-CALORIE MALNUTRITION Current Visit: No Status: Acute Qualifiers: Malnutrition type: protein-calorie malnutrition Protein-calorie malnutrition severity: moderate Qualified Code(s): E44.0 - Moderate protein- calorie malnutrition (3) Narcolepsy Code(s): G47.419 - NARCOLEPSY WITHOUT CATAPLEXY Current Visit: No Status: Chronic - Plan/Recommendations Plan: Supportive care and therapeutic listening, established relationship with patient. Communicated with Palliative Care RN Aylin Mckenna and [place] patient nurse for today. Patient to have EGD today. Will continue to follow and support with coping of recent weight loss, significant GI issues and comorbid conditions /contributing factors [60] minutes spent on this encounter with >50% of the time in counseling and coordination of care. Thank you for this very appropriate consult.
[2019-01-05] MEDS: Sodium Chloride 0.9% 1,000 ML IV SCH ×2 (13:41→22:24)
[2019-01-05] MEDS ORDERED: Levothyroxine Sodium 75 MCG TAB PO SCH (14:45)
--- NOTE | 2019-01-05 15:16 | OP ---
DATE OF PROCEDURE: 01/05/2019 PROCEDURE PERFORMED: Esophagogastroduodenoscopy with biopsy. PREOPERATIVE DIAGNOSES: A 38-year-old female, who had laparoscopic cholecystectomy about 10 days ago. The patient presents with persistent nausea and vomiting. She has no abdominal pain. Abdominal CAT scan showed no pathology except for thickening of the colon, which is nonspecific. Her symptom does not correlate with the CAT scan findings. The patient underwent upper endoscopy because of persistent nausea and vomiting over the last several days. POSTOPERATIVE DIAGNOSES: 1. Normal esophageal mucosa. 2. Small hiatus hernia. 3. No lesion in fundus and cardia. 4. Mild hyperemia of the gastric antrum and gastric body, which is nonspecific. 5. No pyloric channel ulcer seen. 6. Normal duodenum. DESCRIPTION OF PROCEDURE: The patient was placed on her left lateral position and was given sedation by Anesthesia Department. A Pentax video gastroscope under direct vision was passed down the oropharynx, past to the GE junction into the stomach and subsequently into the descending duodenum. The esophageal mucosa appeared normal. No esophagitis seen. At the GE junction, no pathology seen. She has a small hiatus hernia. Retroflexion failed to show any pathology in fundus and cardia. The gastric body and antrum shows mucosal hyperemia, which is nonspecific with a history of recurrent nausea and vomiting. No ulceration. Careful exam of the pyloric channel was made. No pyloric channel ulcer seen. The duodenum bulb again showed mild mucosal hyperemia. The descending duodenum, no pathology seen. Random biopsy obtained of the gastric antrum and gastric body. The stomach decompressed and the scope was removed. OVERALL IMPRESSION: Although, the patient complains of persistent nausea and vomiting. At the endoscopy, no pathology seen to explain the patient's symptoms. She has same findings about 10 days ago. It is possible that the patient has some ileus. RECOMMENDATION: 1. May try the Reglan 10 mg q.8 hours. 2. Diet as tolerated. 3. Further recommendation depending on hospital course. Job ID: [id number] [facility]
[2019-01-05] MEDS ORDERED: PROPOFOL 200 MG/20 ML VIAL ONE (15:58)
--- NOTE | 2019-01-05 16:44 | PDOC.HOSPP ---
- Subjective Subjective: f/u for N/V of unclear etiology with negative EGD. Feels somewhat better overall. - Objective Vital Signs & Weight: Vital Signs (12 hours) Temp Pulse Resp BP Pulse Ox 01/05/19 08:00 97.8 F 94 14 120/78 97 Weight Admit Weight 108 lb 9.6 oz Weight 108 lb 9.6 oz I&O: 01/04/19 01/05/19 01/06/19 06:59 06:59 06:59 Intake Total 2109 Balance 2109 Result Diagrams: 01/05/19 09:08 01/05/19 09:08 Radiology Reviewed by me: Yes (EGD - no acute process) ROS - Review of Systems All systems: All other ROS were reviewed and found negative. - Medication Medications: Active Medications Generic Name Dose Route Start Last Admin Trade Name Freq PRN Reason Stop Dose Admin Aripiprazole 2.5 mg 01/04/19 21:00 01/04/19 21:07 Abilify PO 2.5 mg HS LEEANNA Administration Sodium Chloride 1,000 mls @ 75 mls/hr 01/04/19 14:00 01/05/19 13:41 Normal Saline 0.9% IV 1,000 mls .[id number] LEEANNA Administration Levothyroxine Sodium 75 mcg 01/05/19 06:00 01/04/19 22:54 Synthroid PO Not Given 0600 LEEANNA Pantoprazole Sodium 40 mg 01/05/19 09:00 01/05/19 09:18 Protonix IVP 40 mg DAILY LEEANNA Administration Vyvanse ( 1 each 01/05/19 09:00 01/05/19 10:13 Lisdexamfetamine) 60 PO 1 each Mg Caps QAM LEEANNA Administration - Exam NAD, awake alert Eye: PERRL, anicteric sclera ENT: normocephalic atraumatic, no oropharyngeal lesions, moist mucosa Neck: supple, symmetric, no JVD, no lymphadenopathy Heart: RRR, no murmur, no gallops, no rubs Respiratory: CTAB, no wheezes, no rales, no ronchi Gastrointestinal: soft, non-tender, non-distended, normal bowel sounds, no palpable masses Extremities: no cyanosis, no clubbing, no edema Skin: normal turgor, no lesions Neurological: CN's grossly intact, normal sensation to touch, no new deficit Psychiatric: A&O x 3 Hosp A/P (1) Nausea & vomiting Code(s): R11.2 - NAUSEA WITH VOMITING, UNSPECIFIED Status: Acute Plan: Unclear etiology, ? severe reflux, trial Reglan and Scopolamine patch, advance diet as tolerated (2) Abdominal pain Code(s): R10.9 - UNSPECIFIED ABDOMINAL PAIN Status: Acute Qualifiers: Abdominal location: generalized Qualified Code(s): R10.84 - Generalized abdominal pain Plan: See above, endoscopy unrevealing (3) Malnutrition Code(s): E46 - UNSPECIFIED PROTEIN-CALORIE MALNUTRITION Status: Acute Qualifiers: Malnutrition type: protein-calorie malnutrition Protein-calorie malnutrition severity: moderate Qualified Code(s): E44.0 - Moderate protein- calorie malnutrition Plan: Advance to regular diet (4) Hypothyroid Code(s): E03.9 - HYPOTHYROIDISM, UNSPECIFIED Status: Chronic Qualifiers: Hypothyroidism type: unspecified Qualified Code(s): E03.9 - Hypothyroidism , unspecified Plan: Continue Synthroid 75mcg daily (5) Narcolepsy Code(s): G47.419 - NARCOLEPSY WITHOUT CATAPLEXY Status: Chronic Plan: Resume home regimen - Plan social science manager, out of bed/ambulate Stable overall Start Reglan 10mg QID Start Scopolamine patch 1.5mg TD q72h Ensure TID with meals Likely home in 24h
[2019-01-05] MEDS ORDERED: Scopolamine 1.5 mg/72 hour Patch TD SCH (17:00)
[2019-01-05] MEDS: Metoclopramide 10 MG/10 ML UDCUP PO SCH ×2 (17:10→22:25)
[2019-01-05] MEDS ORDERED: XYREM PO SCH ×2 (21:00)
[2019-01-05] MEDS: Aripiprazole 2 MG TAB PO SCH (22:25)
[2019-01-05] MEDS: XYREM PO SCH (22:26)
[2019-01-06] MEDS: XYREM PO SCH ×2 (01:48→01:54)
[2019-01-06] MEDS: Levothyroxine Sodium 75 MCG TAB PO SCH (05:30)
[2019-01-06] MEDS: NUVIGIL 250 MG PO SCH ×4 (05:54→13:30)
[2019-01-06] MEDS: Pantoprazole 40 MG VIAL IVP SCH (08:55)
[2019-01-06] MEDS: Metoclopramide 10 MG/10 ML UDCUP PO SCH ×3 (09:47→18:21)
[2019-01-06] MEDS: VYVANSE 60 MG PO SCH (11:08)
[2019-01-06] MEDS ORDERED: Gadobenate Dimeglumine 529 MG/1 ML (20ML VIAL) ONE (11:11)
[2019-01-06] MEDS ORDERED: Dextrose 50% Abboject 50 ML SYRINGE ONE (19:58)
--- NOTE | 2019-01-06 20:18 | PDOC.EVN ---
Event Note - Event Note Event Note: Notified by RN patient acting unusual, appears "drunk". Came to bedside and patient unresponsive to painful stimuli, Completely flaccid and unable to illicit plantar reflexes. PERRLA. No apparent respiratory distress. Obvious urine incontinence. Called code green. CT Brain stat ordered. Dr. Jameson notified and Dr. Flores has come to evaluate patient since he was still here. Noted to be hypoglycemic, glucose of 46. Improved to 269, patient remains with AMS though no longer flaccid. CBC, CMP, Lactic Acid, procalcitonin, and serum drug screen ordered. Patient to be moved to Telemetry, will have CT Brain en route.
--- NOTE | 2019-01-06 20:19 | PDOC.HOSPP ---
- Subjective Subjective: f/u for N/V, abd pain and poor po intake. Nursing reports pt lethargic this pm and apparently minimally responsive. Glucose checked and noted in the 40's. Code Green activated and 1 amp D50 given with initiation of DNS IVF's. - Objective Vital Signs & Weight: Vital Signs (12 hours) Temp Pulse Resp BP Pulse Ox 01/06/19 16:30 97.6 F 100 20 115/70 100 01/06/19 08:50 97.5 F L 82 20 124/76 98 Weight Admit Weight 108 lb 9.6 oz Weight 108 lb 11.2 oz I&O: 01/05/19 01/06/19 01/07/19 06:59 06:59 06:59 Intake Total 2110 2672 500 Balance 2110 2672 500 Result Diagrams: 01/05/19 09:08 01/05/19 09:08 Additional Labs: Accuchecks 01/06/19 20:00 POC Glucose 47 L* Radiology Reviewed by me: Yes (CT brain - no acute process) EKG Reviewed by me: Yes (Tele - Sinus tachycardia in low-100's) ROS - Review of Systems All systems: All other ROS were reviewed and found negative. - Medication Medications: Active Medications Generic Name Dose Route Start Last Admin Trade Name Freq PRN Reason Stop Dose Admin Aripiprazole 2.5 mg 01/04/19 21:00 01/05/19 22:25 Abilify PO 2.5 mg HS LEEANNA Administration Levothyroxine Sodium 75 mcg 01/05/19 06:00 01/06/19 05:30 Synthroid PO 75 mcg 0600 LEEANNA Administration Ondansetron HCl 4 mg 01/04/19 13:47 01/06/19 15:00 Zofran Odt PO 4 mg Q6H PRN Administration Nausea/Vomiting Pantoprazole Sodium 40 mg 01/05/19 09:00 01/06/19 08:55 Protonix IVP 40 mg DAILY LEEANNA Administration Xyrem (Sodium 6 each 01/05/19 21:00 01/05/19 22:26 Oxybate) 500 Mg/Ml PO 6 each Solution HS LEEANNA Administration Xyrem (Sodium 6 each 01/06/19 01:00 01/06/19 01:54 Oxybate) 500 Mg/Ml PO Not Given Solution 0100 LEEANNA Vyvanse ( 1 each 01/05/19 09:00 01/06/19 11:08 Lisdexamfetamine) 60 PO 1 each Mg Caps QAM LEEANNA Administration Nuvigil (Armodafinil 0 each 01/06/19 06:00 01/06/19 09:50 ) 250 Mg Tab PO 1 each 0600 LEEANNA Administration Nuvigil (Armodafinil 0 each 01/06/19 12:00 01/06/19 13:30 ) 250 Mg Tab PO 1 each 1200 LEEANNA Administration - Exam ill appearing (opens eyes to direct stimulation and name briefly, staring at ceiling) Eye: PERRL, anicteric sclera ENT: normocephalic atraumatic, no oropharyngeal lesions, dry oral mucosa Neck: supple, symmetric, no JVD, no Thyromegaly Heart: RRR, no murmur, no gallops, no rubs Respiratory: CTAB, no wheezes, no rales, no ronchi, no tachypnea Gastrointestinal: soft, non-tender, non-distended, normal bowel sounds, no palpable masses Extremities: no cyanosis, no clubbing, no edema Skin: normal turgor, no lesions Musculoskeletal: generalized weakness (moves extremities randomly) Psychiatric: somnolent (opens eyes briefly to name and direct stimulation, does not follow commands, does not track with eyes), lethargic Hosp A/P (1) Acute metabolic encephalopathy Code(s): G93.41 - METABOLIC ENCEPHALOPATHY Status: Acute Plan: Likely due to hypoglycemia due to poor po intake, see below for mgmt, check CT brain currently, CMP, CBC, Prolactin level, Lactic acid, UDS, ? influence of medication interaction (2) Hypoglycemia Code(s): E16.2 - HYPOGLYCEMIA, UNSPECIFIED Status: Acute Plan: 1 amp D50 now, start D5NS @ 125ml/h, serial accuchecks (3) Hypokalemia Code(s): E87.6 - HYPOKALEMIA Status: Acute Plan: Resolved (4) Nausea & vomiting Code(s): R11.2 - NAUSEA WITH VOMITING, UNSPECIFIED Status: Acute Plan: Improved, hold Scopolamine/Reglan due to sedation (5) Abdominal pain Code(s): R10.9 - UNSPECIFIED ABDOMINAL PAIN Status: Acute Qualifiers: Abdominal location: generalized Qualified Code(s): R10.84 - Generalized abdominal pain (6) Malnutrition Code(s): E46 - UNSPECIFIED PROTEIN-CALORIE MALNUTRITION Status: Acute Qualifiers: Malnutrition type: protein-calorie malnutrition Protein-calorie malnutrition severity: moderate Qualified Code(s): E44.0 - Moderate protein- calorie malnutrition Plan: Ensure TID, Regular diet as tolerated (7) Hypothyroid Code(s): E03.9 - HYPOTHYROIDISM, UNSPECIFIED Status: Chronic Qualifiers: Hypothyroidism type: unspecified Qualified Code(s): E03.9 - Hypothyroidism , unspecified (8) Narcolepsy Code(s): G47.419 - NARCOLEPSY WITHOUT CATAPLEXY Status: Chronic Plan: Multiple chronic medications as outpt, continue and monitor - Plan social services assistant, DVT proph w/SCDs Transfer to Stroke unit for closer monitoring Sitter 1:1 UDS now Continue IV D5NS Tele monitoring Labs: CMP, CBC, Prolactin, Lactic acid Total Critical Care Time: 35min
[2019-01-06 20:32] LABS: #Lymphocytes 0.2 thou/uL (1.20-3.40); #Monocytes 0.5 thou/uL (0.11-0.59); #Neutrophils 4.7 thou/uL (1.40-6.50); %Eosinophils 0.2 % (0.0-10.0); %Lymphocytes 3.3 % (21.0-51.0); %Monocytes 8.6 % (0.0-10.0); %Neutrophils 87.9 % (42.0-75.0); Hemoglobin 11.4 g/dL (12.0-16.0); Mean Corpuscular HGB CONC 34.2 g/dL (32.0-36.0); Mean Corpuscular Hemoglobin 30.3 pg (27.0-31.0); Mean Corpuscular Volume 88.7 fL (78.0-98.0); Mean Platelet Volume 6.7 fL (7.4-10.4); Platelet Count 442 thou/uL (130-400); RBC Distribution Width 13.1 % (11.5-14.5); Red Blood Cell (RBC) Count 3.74 mill/uL (4.20-5.40); White Blood Cell (WBC) Count 5.3 thou/uL (4.8-10.8)
--- NOTE | 2019-01-06 20:46 | CT ---
CT HEAD WITHOUT CONTRAST: 01/06/19 INDICATIONS: Mental status change. Found unresponsive. Comparison made to recent CT of 12/23/18. There is diffuse sulcal effacement involving both cerebral hemispheres which appears to represent a n ew finding when compared to the recent exam. The findings indicate increased intracranial pressure. T here is no evidence of focal hemorrhage or mass. Ventricles are small and show increased compression when compared to the recent study. The basilar cisterns are maintained although they are somewhat effaced. IMPRESSION: Change in CT scan when compared to recent exam. There is now diffuse sulcal effacement indicating inc rease intracranial pressure. No focal mass or hemorrhage identified. Follow-up MRI is recommended if possible. Findings relayed to warehouse person who will relay the findings to the patient's physician. POS: OFF
[2019-01-06 20:52] LABS: ALT (SGPT) 28 U/L (8-55); AST (SGOT) 46 U/L (5-34); Acetaminophen Less than 6.0 mcg/mL (10.0-30.0); Albumin 3.7 g/dL (3.5-5.0); Alcohol Less than 10 mg/dL (Less than 10); Alkaline Phosphatase 85 U/L (40-150); Anion Gap 25 mmol/L (10-20); BUN (Urea Nitrogen) 6 mg/dL (7.0-18.7); Bilirubin, Total 0.3 mg/dL (0.2-1.2); Calc. Creatinine Clearance 64 mL/min (70-130); Carbon Dioxide 13 mmol/L (22-29); Chloride 101 mmol/L (98-107); Estimated GFR-MDRD 68; Globulin 2.4 g/dL (2.4-3.5); Glucose 223 mg/dL (70-105); Magnesium 1.7 mg/dL (1.6-2.6); Potassium 3.6 mmol/L (3.5-5.1); Protein, Total 6.1 g/dL (6.0-8.3); Salicylate Less than 8.0 mg/dL (15.0-30.0); Sodium 135 mmol/L (136-145)
[2019-01-06 20:54] LABS: Lactic Acid 4.7 mmol/L (0.5-2.2)
[2019-01-06] MEDS ORDERED: Lorazepam 2 MG/ML VIAL SLOW IVP PRN (21:02)
--- NOTE | 2019-01-06 21:20 | PDOC.EVN ---
Event Note - Event Note Event Note: CT brain review showed loss of sulcal markings and suspected increased ICP changed from prior CT brain 12/05/18. Discussed with Neurosurgery this pm who will review the imaging and any recommendations for mgmt, MRI ordered and pending. Pt transferred to stroke unit currently.
[2019-01-06 21:38] LABS: Actual Bicarbonate (HCO3a) 12.5 mEq/L (22-28); Base Excess (BEa) -9.4 mEq/L (-2.0 to +3.0); Calcium, Ionized 1.14 mmol/L (1.12-1.30); Carboxyhemoglobin (COHb) 0.4 gm% (0.0-3.0); Hemoglobin (Hb) 12.4 g/dL (12.0-16.0); O2 Tension (PaO2) 73.2 mmHg (80.0-100.0); Potassium - ABG Lab 4.24 mmol/L (3.70-5.30); pH, Arterial 7.44 (7.35-7.45)
[2019-01-06 21:40] LABS: Puncture Site RRA
--- NOTE | 2019-01-06 22:53 | MRI ---
MRV: 01/06/19 INDICATIONS: Increased intracranial pressure noted on CT. Exam was performed with IV contrast. FINDINGS/IMPRESSION: Dural venous sinuses appear paten. No evidence of venous sinus thrombosis identified. POS: OFF
--- NOTE | 2019-01-06 23:01 | MRI ---
MRI BRAIN WITH AND WITHOUT CONTRAST: 01/06/19 INDICATIONS: Evidence of increased intracranial pressure on CT. Patient was found nonresponsive. Comparison made to MRI from 2010. FINDINGS: Mild sulcal effacement is seen although the sulcal effacement is not as pronounced on MRI. There is n o evidence of restricted diffusion. On the postcontrast images there is no evidence of focal enhancement. However, there is increased vas cular enhancement in the small vessels of the cortex of both cerebral hemispheres. There is no parenc hymal enhancement. The intracranial internal carotid arteries show flow voids. Proximal cerebral arteries show flow void s. The dural venous sinuses appear patent. IMPRESSION: Mild sulcal effacement in the cerebral hemispheres as noted on CT, although less pronounced on MRI. P ostcontrast images show mild increased cortical vascular enhancement in both cerebral hemispheres. Th is is nonspecific. Vasculitis would be a consideration. No parenchymal enhancement identified. POS: OFF
[2019-01-07 00:31] LABS: Amphetamine Detected (NotDetected); Barbiturates Screen Not Detected (NotDetected); Benzodiazepine Screen Not Detected (NotDetected); Cocaine Metabolite Screen Not Detected (NotDetected); Medtox Control Line Valid? VALID (VALID); Medtox Reader # READER 4; Methadone Not Detected (NotDetected); Methamphetamine Not Detected (NotDetected); Opiate Screen Not Detected (NotDetected); Oxycodone Screen Not Detected (NotDetected); Phencyclidine (PCP) Not Detected (NotDetected); THC/Cannabinoid Screen Not Detected (NotDetected); Tricyclic Screen Not Detected (NotDetected)
[2019-01-07] MEDS: XYREM PO SCH ×2 (00:34→02:23)
[2019-01-07] MEDS: Aripiprazole 2 MG TAB PO SCH (00:34)
[2019-01-07 01:43] LABS: Actual Bicarbonate (HCO3a) 14.1 mEq/L (22-28); Base Excess (BEa) -7.9 mEq/L (-2.0 to +3.0); Carboxyhemoglobin (COHb) 0.1 gm% (0.0-3.0); Hemoglobin (Hb) 12.1 g/dL (12.0-16.0); Potassium - ABG Lab 3.63 mmol/L (3.70-5.30); pH, Arterial 7.45 (7.35-7.45)
[2019-01-07 01:44] LABS: CO2 Tension 20.7 mmHg (35.0-45.0); O2 Tension (PaO2) 58.6 mmHg (80.0-100.0)
[2019-01-07 01:48] LABS: Puncture Site RBRACH
[2019-01-07] MEDS ORDERED: Sodium Chloride 0.9% 1,000 ML IV SCH ×2 (02:15→03:30)
[2019-01-07 02:30] LABS: INR-International Normal Ratio 1.8; PTT 29.4 SEC (22.9-36.1); Prothrombin Time 20.9 SEC (12.0-14.7)
[2019-01-07 02:32] LABS: D-Dimer Test 0.5 *mcg/mL (0.27-0.43)
[2019-01-07 02:41] LABS: Anion Gap 27 mmol/L (10-20); BUN (Urea Nitrogen) 8 mg/dL (7.0-18.7); Calc. Creatinine Clearance 69 mL/min (70-130); Calcium 9.4 mg/dL (7.8-10.44); Carbon Dioxide 11 mmol/L (22-29); Chloride 103 mmol/L (98-107); Estimated GFR-MDRD 74; Potassium 4.1 mmol/L (3.5-5.1); Sodium 137 mmol/L (136-145)
[2019-01-07 02:45] LABS: Glucose 34 mg/dL (70-105); Lactic Acid 6.1 mmol/L (0.5-2.2)
[2019-01-07] MEDS ORDERED: Dextrose 50% Abboject 50 ML SYRINGE ONE (02:48)
[2019-01-07] MEDS ORDERED: Vecuronium 10 MG VIAL ONE (03:39)
[2019-01-07] MEDS ORDERED: Sterile Water 10 ML ONE (03:40)
[2019-01-07] MEDS ORDERED: Dextrose 50% Abboject 50 ML SYRINGE IVP PRN (03:52)
[2019-01-07] MEDS ORDERED: Dextrose 5% in Water 1,000 ML IV PRN (03:52)
[2019-01-07 04:14] LABS: Base Excess (BEa) -11.7 mEq/L (-2.0 to +3.0); Calcium, Ionized 1.08 mmol/L (1.12-1.30); Carboxyhemoglobin (COHb) 0.3 gm% (0.0-3.0); Hemoglobin (Hb) 12.2 g/dL (12.0-16.0); O2 Tension (PaO2) 87.3 mmHg (80.0-100.0); Potassium - ABG Lab 3.94 mmol/L (3.70-5.30); pH, Arterial 7.35 (7.35-7.45)
--- NOTE | 2019-01-07 04:24 | PDOC.EVN ---
Event Note - Event Note Event Note: Pt. has continued to deteriorate overnight with worsening mentation, respiratory otero pt is in impending respiratory failure, getting tired, for that reasons we have decided to proceed with intubation, empiric antibiotics have been started given lactic acidosis, we will continue to monitor FS and give D 50% as needed, Neurosurgery has been following from their end, recommendations not to give D5W , MRI/CT followed, and reviewed as well by neurosurgery. There was some questioning about pt possibly taking some pills? in her room before the code green. Case discussed with Dr Evangelista, we will follow recommendations
[2019-01-07 04:25] LABS: CO2 Tension 22.4 mmHg (35.0-45.0); Puncture Site RBRACH
--- NOTE | 2019-01-07 04:56 | CON ---
DATE OF CONSULTATION: This is Anmol Smith PA-C dictating a report for Rakan Reddy MD. TIME SPENT: This is a 50-minute initial patient evaluation of which greater than 50% of the exam was spent in counseling and coordinating the patient's care. Remainder of the exam was spent in review of the patient's medical records and review of appropriate imaging studies. CHIEF COMPLAINT: Altered mental status with questionable increased intracranial pressure. HISTORY OF PRESENT ILLNESS: Ms. Figueroa is a 38-year-old female, who has been admitted to [facility] for the past several days with complaints of nausea, vomiting, and abdominal pain with no clear etiology. The patient has been admitted earlier this month and she was also diagnosed with pancreatitis. She also underwent a laparoscopic cholecystectomy in mid December. Nonetheless, the patient was improving and was set to discharge home. However, unfortunately, had an episode of altered mental status, in which she was nonresponsive, nonverbal, and flaccid by report. A head CT was done that showed some questionable sulcal effacement, questionable for increased intracranial pressure. MRI and MRV were obtained and on review there, it does not appear to be any thrombosis on the MRV and some mild full focal effacement, but this appears to be less so as compared to her CT scan. Her ventricle size is stable compared to her CT scan. There is no restricted diffusion noted. I should also note that, the patient did however have a significant episode of hypoglycemia, in which her glucose was 47. Her lactic acid was high over 4. She also had significant amount of ketones in her urine. Toxic screening is pending. PHYSICAL EXAMINATION: The patient keeps her eyes closed. In fact, her eyelids are actually half open and appears as though she attempts to track to the examiner. She intermittently follows commands. Her pupils are extremely dilated 7 to 8 mm, they are equal. They are reactive bilaterally and equally. She will occasionally stick her tongue out to command when asked several times. She withdraws to painful stimulus in all extremities, more so in the legs than the arms. She tends also to intermittently follow commands in the legs. She has some mumbling occasionally, especially to noxious stimulus. She appears rather thin and likely has protein malnourishment. She also has bruises in arm likely indicative of protein deficiency, malnutrition. I should note that the patient was given 1 mg of Ativan around 8:30 to 9 p.m. and another 0.5 mg of Ativan around 9:30 prior to her MRI and has had no other sedating medication. IMPRESSION AND DIAGNOSES: 1. Altered mental status. 2. Mild sulcal effacement. 3. Nausea, vomiting, abdominal pain of unclear etiology with negative EGD. 4. History of narcolepsy with cataplexia. 5. Hypoglycemia. PLAN: 1. At this time, I am going to discuss with our medical colleagues. The patient should be transferred to the ICU for q.1 hour neuro checks. I would like her to be evaluated neurologically and closely. No plan for any repeat CT scans at this time but rather will follow her clinically. She should have close blood glucose monitoring as well. Normal saline at this time. We will hold on any antiepileptic. However, if the patient has another episode of seizure-like activity, she will likely need intubation and initiation of Ativan. 2. I have reviewed the patient's case and imaging with Dr. Reddy as well, he agrees with the plan and assessment. We will continue to monitor the patient and I should note that likely with the improvement of her hypoglycemia, her sulci effacement will improve and her neurologic exam should improve. Nonetheless, we will closely monitor her. Please call with any changes in patient's neurologic status, otherwise we will follow. Job ID: [id number]
[2019-01-07] MEDS ORDERED: Piperacillin/Tazobactam 4.5 GM in Sodium Chloride 0.9% 100 ML IVPB SCH (06:00)
[2019-01-07] MEDS: Levothyroxine Sodium 75 MCG TAB PO SCH (06:03)
[2019-01-07] MEDS: Vancomycin HCl 1 GM in Premix Bag 1 BAG IVPB SCH ×2 (06:12→17:09)
[2019-01-07 07:18] LABS: Actual Bicarbonate (HCO3a) 8.9 mEq/L (22-28); Base Excess (BEa) -13.3 mEq/L (-2.0 to +3.0); Calcium, Ionized 1.02 mmol/L (1.12-1.30); Carboxyhemoglobin (COHb) 0.6 gm% (0.0-3.0); O2 Tension (PaO2) 74.1 mmHg (80.0-100.0); Potassium - ABG Lab 4.14 mmol/L (3.70-5.30)
[2019-01-07 07:21] LABS: CO2 Tension 14.7 mmHg (35.0-45.0)
[2019-01-07 07:22] LABS: ALV-art Gradient 192.725 (0-20); Puncture Site RRA
[2019-01-07] MEDS: VYVANSE 60 MG PO SCH (08:29)
--- NOTE | 2019-01-07 08:45 | PDOC.HOSPP ---
- Subjective Subjective: f/u for AMS, seizure-like activity and resp failure intubated overnight and initiated on empiric Vancomycin/Zosyn. Nsg reports hypoglycemia requiring D50. - Objective Vital Signs & Weight: Vital Signs (12 hours) Temp Pulse Resp BP Pulse Ox 01/07/19 08:00 94.7 F L 22 H 100 01/07/19 06:50 118 H 01/07/19 06:00 35 H 01/07/19 04:03 109 H 01/07/19 04:00 97.6 F 24 H 100 01/07/19 00:13 95 01/07/19 00:00 96.6 F L 01/06/19 23:03 95.9 F L 110 H 17 112/86 93 L Weight Admit Weight 108 lb 9.6 oz Weight 102 lb 15.294 oz Most Recent Monitor Data Heart Rate from ECG 123 NIBP 106/67 NIBP BP-Mean 80 Respiration from ECG 20 SpO2 100 I&O: 01/06/19 01/07/19 01/08/19 06:59 06:59 06:59 Intake Total 2672 1600 Output Total 655 65 Balance 2672 945 -65 Result Diagrams: 01/06/19 20:23 01/07/19 02:08 Additional Labs: Accuchecks 01/07/19 01/07/19 01/07/19 07:40 06:24 05:09 POC Glucose 206 H 52 L* 89 01/07/19 01/06/19 01/06/19 03:27 23:15 20:43 POC Glucose 180 H 92 184 H 01/06/19 01/06/19 20:10 20:00 POC Glucose 269 H 47 L* Laboratory Tests 01/04/19 01/04/19 01/04/19 10:03 10:03 10:03 Hgb 11.8 L Plt Count 480 H Bicarbonate Actual ABG pH ABG pCO2 ABG pO2 ABG O2 Sat Calc/Kenzie Carbon Dioxide 14 L Lactic Acid 0.8 Procalcitonin Prolactin Ur Amphetamines Screen 01/05/19 01/05/19 01/06/19 09:08 09:08 00:05 Hgb 11.9 L Plt Count 410 H Bicarbonate Actual ABG pH ABG pCO2 ABG pO2 ABG O2 Sat Calc/Kenzie Carbon Dioxide 15 L Lactic Acid Procalcitonin Prolactin Ur Amphetamines Screen Detected H 01/06/19 01/06/19 01/06/19 20:22 20:23 20:23 Hgb Plt Count Bicarbonate Actual ABG pH ABG pCO2 ABG pO2 ABG O2 Sat Calc/Kenzie Carbon Dioxide 13 L Lactic Acid 4.7 H* Procalcitonin Prolactin 17.13 Ur Amphetamines Screen 01/07/19 01/07/19 01/07/19 02:08 02:08 02:08 Hgb Plt Count Bicarbonate Actual ABG pH ABG pCO2 ABG pO2 ABG O2 Sat Calc/Kenzie Carbon Dioxide 11 L Lactic Acid 6.1 H* Procalcitonin 0.53 Prolactin Ur Amphetamines Screen 01/07/19 07:13 Hgb Plt Count Bicarbonate Actual 8.9 L ABG pH 7.40 ABG pCO2 14.7 L* ABG pO2 74.1 L ABG O2 Sat Calc/Kenzie 93.9 L Carbon Dioxide Lactic Acid Procalcitonin Prolactin Ur Amphetamines Screen Radiology Reviewed by me: Yes (MRI brain - less sulcal effacement than CT, MRA brain - no thrombus) EKG Reviewed by me: Yes (Tele - Sinus tachycardia) ROS - Review of Systems All systems: All other ROS were reviewed and found negative. - Medication Medications: Active Medications Generic Name Dose Route Start Last Admin Trade Name Freq PRN Reason Stop Dose Admin Aripiprazole 2.5 mg 01/04/19 21:00 01/07/19 00:34 Abilify PO Not Given HS LEEANNA Dextrose/Water 25 gm 01/07/19 03:52 01/07/19 06:25 Dextrose 50% IVP 25 gm PRN PRN Administration HYPOGLYCEMIA PROTOCOL Sodium Chloride 1,000 mls @ 50 mls/hr 01/07/19 02:15 01/07/19 02:23 Normal Saline 0.9% IV 1,000 mls .Q20H LEEANNA Administration Piperacillin Sod/Tazobactam 100 mls @ 200 mls/hr 01/07/19 06:00 01/07/19 06: 02 Sod 4.5 gm/ Sodium Chloride IVPB 100 mls Q8HR LEEANNA Administration Vancomycin HCl 1 gm/ Device 200 mls @ 200 mls/hr 01/07/19 05:00 01/07/19 06: 12 IVPB 200 mls 0500,1700 LEEANNA Administration Levothyroxine Sodium 75 mcg 01/05/19 06:00 01/07/19 06:03 Synthroid PO Not Given 0600 LEEANNA Lorazepam 1 mg 01/06/19 21:02 01/06/19 21:30 Ativan SLOW IVP 1 mg Q4H PRN Administration Seizures Ondansetron HCl 4 mg 01/04/19 13:47 01/06/19 15:00 Zofran Odt PO 4 mg Q6H PRN Administration Nausea/Vomiting Pantoprazole Sodium 40 mg 01/05/19 09:00 01/06/19 08:55 Protonix IVP 40 mg DAILY LEEANNA Administration Xyrem (Sodium 6 each 01/05/19 21:00 01/07/19 00:34 Oxybate) 500 Mg/Ml PO Not Given Solution HS LEEANNA Xyrem (Sodium 6 each 01/06/19 01:00 01/07/19 02:23 Oxybate) 500 Mg/Ml PO Not Given Solution 0100 LEEANNA Vyvanse ( 1 each 01/05/19 09:00 01/07/19 08:29 Lisdexamfetamine) 60 PO Not Given Mg Caps QAM LEEANNA Nuvigil (Armodafinil 0 each 01/06/19 06:00 01/06/19 09:50 ) 250 Mg Tab PO 1 each 0600 LEEANNA Administration Nuvigil (Armodafinil 0 each 01/06/19 12:00 01/06/19 13:30 ) 250 Mg Tab PO 1 each 1200 LEEANNA Administration - Exam ill appearing (sedate on mech ventilation) Eye: PERRL (sluggish to react to light) ENT: normocephalic atraumatic, no oropharyngeal lesions (ETT in place), dry oral mucosa Neck: supple, symmetric, no JVD, no Thyromegaly Heart: no murmur, no gallops, no rubs (tachycardic), normal peripheral pulses Respiratory: CTAB, no wheezes, no rales, no ronchi Gastrointestinal: non-tender (firm, no rebound), normal bowel sounds (mirza with clear urine), no palpable masses Extremities: no cyanosis, no clubbing, no edema Skin: normal turgor (left thigh contusion) Neurological: no new deficit (sedate on mech ventilation) Hosp A/P (1) Acute respiratory failure with hypoxia Code(s): J96.01 - ACUTE RESPIRATORY FAILURE WITH HYPOXIA Status: Acute Plan: Continue mech ventilation, serial PCXR, ABG, etiology unclear currently (2) Septic shock Code(s): A41.9 - SEPSIS, UNSPECIFIED ORGANISM; R65.21 - SEVERE SEPSIS WITH SEPTIC SHOCK Status: Acute Plan: Suspected but unclear source, continue Vancomycin/Zosyn, blood cx pending, check Cortisol level now, Hydrocortisone 100mg IV x 1 now, IVF's (3) Acute metabolic encephalopathy Code(s): G93.41 - METABOLIC ENCEPHALOPATHY Status: Acute Plan: Etiology unclear and likely multifactorial, persistent metabolic/lactic acidosis , add sodium bicarbonate today, serial monitoring, IVF's, oxygenation and empiric Vancomycin/Zosyn (4) Hypoglycemia Code(s): E16.2 - HYPOGLYCEMIA, UNSPECIFIED Status: Acute Plan: Start D5NS at 50ml/h, serial accuchecks, consider insulinoma? (5) Nausea & vomiting Code(s): R11.2 - NAUSEA WITH VOMITING, UNSPECIFIED Status: Acute Plan: antiemetics prn (6) Abdominal pain Code(s): R10.9 - UNSPECIFIED ABDOMINAL PAIN Status: Acute Qualifiers: Abdominal location: generalized Qualified Code(s): R10.84 - Generalized abdominal pain (7) Malnutrition Code(s): E46 - UNSPECIFIED PROTEIN-CALORIE MALNUTRITION Status: Acute Qualifiers: Malnutrition type: protein-calorie malnutrition Protein-calorie malnutrition severity: moderate Qualified Code(s): E44.0 - Moderate protein- calorie malnutrition (8) Hypothyroid Code(s): E03.9 - HYPOTHYROIDISM, UNSPECIFIED Status: Chronic Qualifiers: Hypothyroidism type: unspecified Qualified Code(s): E03.9 - Hypothyroidism , unspecified Plan: Repeat TSH level (9) Narcolepsy Code(s): G47.419 - NARCOLEPSY WITHOUT CATAPLEXY Status: Chronic - Plan continue antibiotics, social organization professor, respiratory therapy, DVT proph w/SCDs Continue aggressive IVF's Hydrocortisone 100mg IV x 1 now D5NS IVF Continue Vancomycin/Zosyn Check blood cx x 2, Ucx AM lab: CMP, CBC Total critical care time: 40min
[2019-01-07] MEDS ORDERED: Dextrose 5 % And 0.9 % NaCl 1,000 ML IV SCH ×2 (09:00→12:00)
[2019-01-07] MEDS: Pantoprazole 40 MG VIAL IVP SCH (09:00)
--- NOTE | 2019-01-07 09:00 | RAD ---
CHEST 1 VIEW: INDICATION: Intubation. COMPARISON: Prior exam dated 01/07/2019. IMPRESSION: The patient is intubated. The ET tube tip is seen 3.2 cm from the level of the jeet. Airspace opa city in both lower lobes persists. No pleural effusion or pneumothorax is evident. There is gaseous distention of the stomach. POS: BH
[2019-01-07] MEDS ORDERED: Hydrocortisone Sod Succ/PF 100 mg/2 ml Vial IVP SCH ×2 (09:15→15:00)
[2019-01-07] MEDS ORDERED: Sodium Bicarb 50 MEQ/50 ML VIAL IVP SCH ×2 (09:15→15:00)
--- NOTE | 2019-01-07 09:16 | RAD ---
CHEST 1 VIEW: Date: 01/07/19 INDICATION: Shortness of breath. COMPARISON: Prior exam dated 06/11/18. FINDINGS: There is hazy air space opacity involving both lower lobes. Heart size is normal. Lungs are mildly hy perexpanded. There is also mild interstitial prominence. Pulmonary vasculature appears within normal limits. No acute osseous abnormality is evident. IMPRESSION: Bibasilar hazy interstitial and air space opacities suspicious for pneumonia. Continued radiographic follow-up is recommended. POS: VICKI
[2019-01-07] MEDS ORDERED: Norepinephrine 8 MG in Dextrose 5% in Water 242 ML IVPB PRN ×2 (09:36→09:38)
--- NOTE | 2019-01-07 10:28 | DIS ---
DATE OF ADMISSION: 01/06/2019 DATE OF DISCHARGE: 01/06/2019 DISCHARGE DIAGNOSES: 1. Nausea and vomiting, unclear etiology. Suspected reflux. 2. Abdominal pain, nonspecific. 3. Moderate protein calorie malnutrition. 4. Hypothyroidism. 5. Narcolepsy. CONSULTATIONS: Dr. Hankins with GI Service. PERTINENT LABORATORY AND X-RAY FINDINGS: Sodium ranged between 134 to 139. Carbon dioxide level ranged between 14 to 15. LFTs within normal limits. Lipase 71. CBC showed a white blood cell count ranged between 3.5 to 5.2, hemoglobin 12, hematocrit 36. Stool culture dated 01/04/2019, showed normal enteric freedom. No E coli O157 isolated. C difficile antigen and toxin dated 01/04/2019, negative. Campylobacter antigen negative on 01/04/2019. Shigella toxin [address] of the abdomen and pelvis dated 01/03/2019, showed mild mesenteric fat stranding and colonic wall prominence. Hepatic steatosis. Pancreas unremarkable. EGD dated 01/05/2019, showed normal esophageal mucosa with small hiatal hernia. Negative findings otherwise. Gastric biopsy dated 01/05/2019, showed normal mucosa. No H pylori identified. HOSPITAL COURSE: The patient was initially admitted after presenting with persistent nausea and vomiting, undergoing repeat imaging on 01/03/2019, showing no acute process. The patient was placed on IV fluids and given antiemetics as well as evaluated by the GI Service. The patient underwent repeat endoscopy with EGD evaluation showing essentially negative findings without evidence of ulceration or gastritis. The patient with recent cholecystectomy with associated acute pancreatitis, resolved completely during this admission. The patient was given a trial of Reglan for suspected gastroesophageal reflux as well as antiemetics with scopolamine patch. Current recommendations are to also pursue outpatient counseling services through [facility] program due to suspicion for underlying depression and psychiatric issues contributing the patient's presentation. I have examined the patient at the time of discharge and discussed followup instructions. The patient verbalized understanding and agreement ready for discharge on 01/06/2019. DISCHARGE MEDICATIONS: 1. Abilify 2.5 mg p.o. at bedtime. 2. Nuvigil 250 mg p.o. daily. 3. Levothyroxine 75 mcg p.o. daily. 4. Lisdexamfetamine 60 mg p.o. daily. 5. Zofran 4 mg p.o. q.6 hours p.r.n. nausea, vomiting. 6. Sodium oxybate 3 g p.o. at bedtime. 7. Reglan 5 mg p.o. t.i.d. 8. Scopolamine patch 1.5 mg transdermally q.72 hours. FOLLOWUP: The patient may follow up with her primary care provider, Dr. Cathi Vincent within 7 days of discharge. The patient may follow up with Dr. Hankins with GI Service and to call his office for appointment time and date. CONDITION ON DISCHARGE: Fair. ACTIVITY: Ad-javad. DIET: Regular. CODE STATUS: Full. DISPOSITION: Home on 01/06/2019. TIME SPENT: Total time preparing and coordinating discharge, 35 minutes. Job ID: [id number]
--- NOTE | 2019-01-07 10:47 | RAD ---
EXAM: Single view of the chest HISTORY: Central line placement COMPARISON: 01/07/2019 FINDINGS: Single view of the chest shows a normal sized cardiomediastinal silhouette. The endotrache al tube is unchanged in position. An NG tube is seen with its tip in the stomach. A left IJ central venous catheter seen with its tip in the superior vena cava. Multifocal airspace opacities are seen i n the lungs, greatest in the right lower lobe. No pleural effusion is seen. No pneumothorax is present. IMPRESSION: 1. Status post central line placement without evidence of complication 2. Multifocal pneumonia
--- NOTE | 2019-01-07 11:19 | PRG ---
DATE OF SERVICE: 01/07/2019 This is a 30-minute initial hospital visit note, in which 30 minutes were spent reviewing the imaging, record, evaluation, examination of the patient, and formulation of plan. Greater than 50% time was spent in counseling on the patient, Mena Figueroa. Ms. Figueroa is a 38-year-old woman, whom we were consulted on last night emergently for a concern of sulcal edema after an unwitnessed generalized tonoclonic seizure. The patient was admitted, it appears on December 22, 2018, for nausea and vomiting and associated abdominal pain. She was also reported to have had a fall and headache and head CT at that time was negative for acute abnormality. She was seen by our gastrointestinal team and an EGD was performed as there was concern of pancreatitis. On December 26, she went on to have a laparoscopic cholecystectomy with Dr. Brady. Following that, she was discharged the next day on December 27 and pathology indicated mild chronic cholecystitis. She then was admitted six days later for persistent nausea and vomiting and there was concern of persisting gastrointestinal issues and an abdominopelvic CT demonstrated nonspecific colitis. Apparently on the , the patient was feeling better overall and had a negative EGD and the plan was for the patient likely to be discharged home. However last night, she had an unwitnessed apparent generalized tonoclonic seizure with biting of the tongue and urinary incontinence and no history of prior seizure disorder. Head CT demonstrated compared to December 23, moderate sulcal edema, but no evidence of herniation or other structural pathology. Certainly, this can be seen after a generalized tonoclonic seizure in particular in the setting of metabolic issues. The patient was found to have a blood sugar of 47 and certainly, this could lead to seizure. She was found to have also profound metabolic abnormalities including an INR of 1.8. Elevated lactate at 6.1 and again fluctuating glucose would go up into the 200s and down into the 30s even up to this morning. She is now hypotensive with a blood pressure of 70/30 and tachycardic with a pulse of 130. On our exam last night, she would localize in her extremities and occasionally stick her tongue out to command. However, this morning on my exam, she is flaccid in all four extremities. She has a positive corneals response bilaterally. But, her right pupil is 7 mm and nonreactive. Her left pupil is 5 mm and sluggishly reactive. I cannot get a cough or gag response. I should note an MRI of the brain without and with contrast demonstrates some mild leptomeningeal enhancement consistent with possible vasculitis or a hyperemic postictal state, but improvement in the sulcal effacement at only a mild amount with no herniation or other structural pathology. Her cisterns are patent. Should note, the MRV demonstrates no evidence of sinus thrombosis. I have discussed her case extensively with Dr. Tovar today. Unfortunately, Ms. Figueroa appears to be dealing with a significant metabolic derangement syndrome. I do not think placement of an ICP monitor is warranted here. 1. The patient has coagulopathy and there is risk of intracranial hemorrhage. 2. With correction of her hypoglycemia, hopefully, they should reduce any increased cerebral edema as it already has between last night CT and subsequent MRI. Further, this will help to prevent seizures by correction of her metabolic derangement syndrome, which again will help minimize any chance of seizure disorder. There is plan for EEG today and continued aggressive medical support. Obviously, one concern is sepsis, which can certainly lower blood sugar. She also has again multiorgan system dysfunction as well and certainly, there is a concern of multiorgan failure. I should also note that even if an ICP monitor did demonstrate elevated intracranial pressure, currently she is not sedated, but any addition of propofol would decrease her blood pressure and jeopardize other organ function as well. Further, there is no option for any mannitol here because of her hypotension and tachycardia and already existing renal disease. This is a very difficult situation. We will follow peripherally. 3. Concern of sepsis with generalized tonoclonic seizure due to hypoglycemia. Job ID: [id number]
[2019-01-07 11:41] LABS: Fibrinogen 286 mg/dL (253-463)
[2019-01-07 11:42] LABS: INR-International Normal Ratio 3.2; PTT 36.2 SEC (22.9-36.1); Prothrombin Time 32.1 SEC (12.0-14.7)
[2019-01-07 11:43] LABS: D-Dimer Test 1.44 *mcg/mL (0.27-0.43)
[2019-01-07 11:50] LABS: Platelet Count 429 thou/uL (130-400)
[2019-01-07] MEDS ORDERED: Lactated Ringer's 1,000 ML IV SCH (12:00)
[2019-01-07] MEDS: NUVIGIL 250 MG PO SCH (12:12)
[2019-01-07] MEDS: methylPREDNISolone Sod Succ/PF 125 MG/2 ML VIAL IVP SCH ×2 (12:20→17:36)
[2019-01-07] MEDS: Cefepime 2 GM in Sodium Chloride 0.9% 100 ML IVPB SCH (12:20)
[2019-01-07] MEDS: metroNIDAZOLE 500 MG in Premix Bag 1 BAG IVPB SCH ×2 (12:21→17:35)
[2019-01-07 12:44] LABS: FSP-Qualitative ABNORMAL (Normal)
[2019-01-07 12:45] LABS: FSP-Semiquantitative >=5 & <20 mcg/mL (Less than 5)
[2019-01-07] MEDS ORDERED: diphenhydrAMINE 50 MG/ML VIAL IVP PRN (13:16)
[2019-01-07] MEDS ORDERED: Ondansetron PF 4 MG/2 ML Vial IVP PRN (13:16)
[2019-01-07] MEDS ORDERED: Ondansetron ODT 4 MG TAB PO PRN (13:16)
[2019-01-07] MEDS ORDERED: diphenhydrAMINE 25 MG CAP PO PRN (13:16)
[2019-01-07] MEDS ORDERED: ACETYLCYSTEINE IV SCH ×3 (13:30→19:00)
[2019-01-07] MEDS ORDERED: DEXTROSE 5% IV SCH ×3 (13:30→19:00)
[2019-01-07] MEDS ORDERED: WATER IV SCH ×3 (13:30→19:00)
--- NOTE | 2019-01-07 13:47 | CON ---
DATE OF CONSULTATION: 01/07/2019 SERVICE: Pulmonary Medicine. REASON FOR CONSULTATION: The patient is a 38-year-old white female with past medical history significant for recent cholecystectomy a couple of weeks ago. Since then, she has been in and out of the emergency department with odd discomforts. Either way, on this occasion she was having nausea and vomiting. She had some electrolyte abnormalities and was subsequently tucked into the hospital. She was being considered for discharge. That being said, she suddenly developed altered sensorium, Kussmaul respiration, was not protecting her airway, became obtunded. She was brought to the ICU. She is found to have hypoglycemia and low blood pressure. She was intubated to protect airway. She cannot provide any additional elements of the history at this point. PAST MEDICAL HISTORY: 1. Major depressive disorder. 2. Narcolepsy with cataplexy. 3. Hypothyroidism. 4. cardiomyopathy. PAST SURGICAL HISTORY: Hysterectomy with ovarian cystectomy. ALLERGIES: MORPHINE AND DILANTIN. MEDICATIONS: List of the patient's home medications as well as inpatient medications was reviewed. FAMILY HISTORY: Noncontributory. SOCIAL HISTORY: She lives in [place]. She has 2 daughters. Denies any alcohol, tobacco, or current illicit drug use, but apparently, there is a remote history of some drug abuse. REVIEW OF SYSTEMS: This cannot be obtained as the patient is currently intubated and obtunded. PHYSICAL EXAMINATION: VITAL SIGNS: Afebrile, pulse 130, blood pressure 70/45, respirations 16, and saturation 100% on 31% FiO2 and a PEEP of 5. GENERAL: The patient is intubated. She is on no sedating medications, but completely obtunded. HEENT: Normocephalic and atraumatic. Sclerae white. Conjunctivae pink. Oral mucosa is moist without lesions. LUNGS: Decent air entry. I hear no prolonged expiratory phase or wheezing. HEART: Normal rate and regular. ABDOMEN: Soft, nontender, and nondistended. Bowel sounds are positive. MUSCULOSKELETAL: No cyanosis or clubbing. There is no pitting in the bilateral lower extremities. NEUROLOGIC: The patient does not demonstrate a cough, or gag. Her right pupil is not reactive. Her left pupil is dilated, minimally reactive and sluggish. She is breathing over the ventilator well with good drive. She does not withdraw from noxious stimuli in upper or lower extremities. LABORATORY DATA: WBC 5.3, hemoglobin 11.4, platelets 442,000. She has been intermittently with low white blood cell count through time. INR 1.8. D-dimer 0.5. A pH 7.40, pCO2 of 14, pO2 of 74. Blood sugar as a low of 52. Lactate is 6.1. Basic metabolic profile is otherwise unremarkable. Creatinine is downtrending to 0.85. Liver function studies are otherwise unremarkable. Urinalysis is positive for ketonuria. Otherwise, it is unremarkable. Amphetamines are positive on the urine drug screen. Beta-hydroxybutyric acid has a history of being elevated. Stool lactoferrin is elevated. C. diff antigen and toxin are negative. Campylobacter and E. coli are unremarkable. IMAGING STUDIES: Chest x-ray demonstrates bibasilar airspace opacification. Endotracheal tube is in good position. There is distention of the of the stomach with air is present. MRI of the brain demonstrates mild sulcal effacement of the cerebral hemispheres. It is less pronounced on the MRI compared to the CT of the head. Cortical vascular enhancement of both rebound hemispheres is present. Vasculitis is of consideration. MRA of the brain demonstrates no acute intracranial abnormality. No venous thrombosis is present. ASSESSMENT: 1. Respiratory failure secondary to inability to protect airway. 2. Metabolic encephalopathy. 3. Inflammatory changes of the brain. 4. Septic shock, presumed. 5. Healthcare-associated pneumonia, possible. DISCUSSION AND PLAN: I am going to stop the Zosyn. I will put her on cefepime and Flagyl. I also initiate vancomycin. This is predominantly to include GI and EXERCISE SCIENTIST coverage. I will check an ammonia, beta-hydroxybutyric acid, DIC. I will stop the Hydrocortisone to initiate Solu-Medrol. This will be scheduled q.6 hours. Pulmonary/Critical Care will continue to follow along while the patient remains inhouse. CRITICAL CARE TIME: 150 minutes. Job ID: [id number] MTDD
[2019-01-07 13:56] LABS: INR-International Normal Ratio 3.7; Prothrombin Time 36.1 SEC (12.0-14.7)
[2019-01-07] MEDS ORDERED: DOBUTamine 500 mg/250 ml 250 ML ONE (13:57)
[2019-01-07] MEDS ORDERED: DOBUTamine 500 mg/250 ml 250 ML IVPB SCH ×2 (14:15→15:00)
[2019-01-07 14:32] LABS: HBCM Index 0.04 S/CO (0-0.79); Hep A IgM AB Non-Reactive (NonReactive); Hep B Surf Ag Non-Reactive S/CO (NonReactive); Hep C IgG Ab Non-Reactive (NonReactive); Hep C Index 0.13 S/CO (0-0.79); Hepatitis B Core IgM Abs Non-Reactive (NonReactive)
[2019-01-07 14:33] LABS: ALT (SGPT) 70 U/L (8-55); AST (SGOT) 214 U/L (5-34); Acetaminophen Less than 6.0 mcg/mL (10.0-30.0); Albumin 2.5 g/dL (3.5-5.0); Alkaline Phosphatase 84 U/L (40-150); Bilirubin, Direct 0.2 mg/dL (0.1-0.3); Bilirubin, Total 0.3 mg/dL (0.2-1.2); Protein, Total 4.3 g/dL (6.0-8.3)
--- NOTE | 2019-01-07 14:41 | ULT ---
LIVER ULTRASOUND INCLUDING COLOR AND SPECTRAL DOPPLER IMAGING AND VASCULAR DUPLEX: Date: 01/07/19 HISTORY: Hyperammonia, acute liver disease. FINDINGS: Liver echogenicity is very coarse and heterogeneous, evidence for nonspecific liver disease. No mendoza l gallbladder was seen. No evidence for intrahepatic ductal dilatation. Common bile duct poorly seen. No focal liver masses. Vascular duplex with color and spectral Doppler imaging demonstrates antegrade hepatic and portal ross ous flow. Hepatic arterial flow unremarkable. IMPRESSION: Very coarse liver echogenicity throughout. No normal gallbladder is seen. Antegrade hepatic and jesus l venous flow. POS: RRE
[2019-01-07 14:56] LABS: Base Excess (BEa) -18.3 mEq/L (-2.0 to +3.0); CO2 Tension 31.6 mmHg (35.0-45.0); Calcium, Ionized 1.06 mmol/L (1.12-1.30); Carboxyhemoglobin (COHb) 0.6 gm% (0.0-3.0); Hemoglobin (Hb) 13.6 g/dL (12.0-16.0); Potassium - ABG Lab 3.83 mmol/L (3.70-5.30)
[2019-01-07] MEDS ORDERED: Sodium Bicarb 50 MEQ/50 ML VIAL ONE (15:01)
[2019-01-07 15:03] LABS: pH, Arterial 7.12 (7.35-7.45)
[2019-01-07 15:04] LABS: O2 Tension (PaO2) 53.1 mmHg (80.0-100.0); Puncture Site LINE
[2019-01-07] MEDS ORDERED: Albumin 5% 0 ML ONE (15:51)
[2019-01-07] MEDS ORDERED: Albumin 25% 200 ML ONE (15:54)
[2019-01-07] MEDS: Calcium Gluconate 4.6 MEQ in Sodium Chloride 0.9% 100 ML IVPB SCH ×2 (15:56→21:23)
[2019-01-07] MEDS: Norepinephrine 16 MG in Dextrose 5% in Water 234 ML IVPB PRN (17:05)
[2019-01-07] MEDS: Dextrose 10% in Water 1,000 ML IV SCH (17:36)
[2019-01-07] MEDS ORDERED: LEVOCARNITINE SLOW IVP SCH ×2 (17:45→23:59)
[2019-01-07 18:55] LABS: Anion Gap 20 mmol/L (10-20); BUN (Urea Nitrogen) 8 mg/dL (7.0-18.7); Calc. Creatinine Clearance 75 mL/min (70-130); Calcium 8.1 mg/dL (7.8-10.44); Carbon Dioxide 24 mmol/L (22-29); Chloride 103 mmol/L (98-107); Estimated GFR-MDRD 87; Glucose 106 mg/dL (70-105); Magnesium 1.8 mg/dL (1.6-2.6); Potassium 3.1 mmol/L (3.5-5.1); Sodium 144 mmol/L (136-145)
[2019-01-07 18:58] LABS: Lactic Acid 5.8 mmol/L (0.5-2.2)
[2019-01-07 18:59] LABS: Phosphorus Less than 1.0 mg/dL (2.3-4.7)
[2019-01-07 19:10] LABS: Band 21 % (5-11); Burr Cells SLIGHT = 2-5 cells (100X) (0-1/hpf); Hemoglobin 11.4 g/dL (12.0-16.0); Lymphocytes 3 % (21-51); MDiff Complete? YES; Mean Corpuscular HGB CONC 35.3 g/dL (32.0-36.0); Mean Corpuscular Hemoglobin 30.7 pg (27.0-31.0); Mean Platelet Volume 7.1 fL (7.4-10.4); Metamyelocyte 9 % (0-0); Neutrophil 67 % (42-75); Platelet Count 257 thou/uL (130-400); Platelet Morphology Comment Appears Adequate; Polychromasia SLIGHT = 2-3 cells (100X) (0-2/hpf); RBC Distribution Width 13.4 % (11.5-14.5); Red Blood Cell (RBC) Count 3.71 mill/uL (4.20-5.40); Vacuoles SLIGHT; White Blood Cell (WBC) Count 8.3 thou/uL (4.8-10.8)
[2019-01-07] MEDS ORDERED: Sodium Phosphate 30 MMOL in Sodium Chloride 0.9% 250 ML 250 ML IVPB ONE (19:15)
[2019-01-07] MEDS ORDERED: Magnesium 2 GM/50 ML 2 GM in Premix Bag 1 BAG IVPB SCH (19:45)
[2019-01-07] MEDS ORDERED: Potassium Chloride 40 MEQ in Premix Bag 1 BAG IVPB SCH (19:45)
[2019-01-07] MEDS ORDERED: Calcium Gluconate 4.6 MEQ in Sodium Chloride 0.9% 100 ML IVPB SCH (21:00)
[2019-01-07 22:18] LABS: Actual Bicarbonate (HCO3a) 19.4 mEq/L (22-28); Base Excess (BEa) -1.1 mEq/L (-2.0 to +3.0); Calcium, Ionized 1.05 mmol/L (1.12-1.30); Carboxyhemoglobin (COHb) 0.5 gm% (0.0-3.0); Hemoglobin (Hb) 11.7 g/dL (12.0-16.0); Potassium - ABG Lab 3.67 mmol/L (3.70-5.30)
[2019-01-07 22:20] LABS: CO2 Tension 21.8 mmHg (35.0-45.0); O2 Tension (PaO2) 55.8 mmHg (80.0-100.0); Puncture Site ALINE; pH, Arterial 7.57 (7.35-7.45)
[2019-01-08] MEDS: methylPREDNISolone Sod Succ/PF 125 MG/2 ML VIAL IVP SCH ×5 (00:34→23:40)
[2019-01-08] MEDS: Cefepime 2 GM in Sodium Chloride 0.9% 100 ML IVPB SCH ×3 (00:37→23:39)
[2019-01-08] MEDS: metroNIDAZOLE 500 MG in Premix Bag 1 BAG IVPB SCH ×5 (00:39→23:39)
--- NOTE | 2019-01-08 00:56 | CON ---
DATE OF CONSULTATION: 01/07/2019 CONSULTING PHYSICIAN: Hospitalist Services. IMPRESSION: Severe metabolic encephalopathy versus anoxic injury with brain . PLAN: Continue supportive measures to try to address metabolic issues and see if there are signs of improvement in brain function. HOSPITAL COURSE: Ms. Figueroa is a 38-year-old female with a known history of narcolepsy. She was on combination of Vyvanse and Xyrem for management of this. Apparently, she has been having some chronic nausea and vomiting for the last month. She has gone through an extensive GI workup without a definitive cause being identified. She was sent home from the hospital shortly before her readmission. She was found in unresponsive state. There was reportedly an empty bottle of Xyrem in her bed. She was brought here and was found to have multiple metabolic abnormalities including an ammonia level of over 900, renal failure, and possible DIC changes on her lab. Her MRI of the brain and CT of the brain showed some minimal suggestive evidence of some cerebral edema. She has not had any type of seizure activity. She had an EEG done earlier today which showed a flat background with only EKG artifact present. On exam, she is intubated and currently on 3 pressors that she is in Trendelenburg to maintain blood pressure. Her pupils are fixed and dilated. Doll's head maneuver did not elicit any movement. No corneal response was elicited. There has not seen a definitive respiratory drive since this morning. There is no response to stimulation peripherally. Overall, the situation appears grave, is difficult to say whether this is truly an anoxic injury versus medication-induced coma with superimposed metabolic factors that would contribute to it. I will see how she responses to dialysis and follow her clinical course. Job ID: [id number]
[2019-01-08] MEDS: Norepinephrine 16 MG in Dextrose 5% in Water 234 ML IVPB PRN ×3 (01:17→16:34)
[2019-01-08] MEDS ORDERED: LEVOCARNITINE IVPB SCH (02:00)
[2019-01-08] MEDS ORDERED: SODIUM CHLORIDE 0.9% IVPB SCH (02:00)
--- NOTE | 2019-01-08 02:28 | CON ---
DATE OF CONSULTATION: 01/07/2019 REASON FOR CONSULTATION: Altered mental status, respiratory arrest, and concern with meningitis. HISTORY OF PRESENT ILLNESS: A 38-year-old patient who has a history of narcolepsy on Vyvanse, Xyrem and modafinil, as well as Abilify. History of cardiomyopathy, who has had recent onset of recurrent episodes of nausea and vomiting. She had some abdominal pain and was admitted initially in December this year and had cholecystectomy. The pathology showed just chronic cholecystitis. She persisted with the symptoms of nausea and vomiting. After that, came a couple times to the emergency room and was released. During those episodes, her white cell count was ranging from 3.6 to 6.7. Her hemoglobin ranged from 10.5 to 12.4 with a normal MCV and a platelet count ranged from 142 to 480. The differential during those episodes ranged from 53, all the way to 81%. Sodium ranged from 136 to 137. Carbon dioxide ranged from 19 to 24 and glucose ranged from 96 to 81. The liver enzymes were always within normal limits. The albumin ranged from 4.2 to 3.2. Eventually, the patient was admitted for the second time and this second admission was on the with persistence of nausea and vomiting. CT of abdomen and pelvis was performed on January 03 and this demonstrated normal lung basis diffusely hypodense hepatic parenchyma, which was felt to be evidence of hepatic steatosis and few areas of colonic wall thickening, particularly in the region of the cecum and some subtle stranding of mesenteric fat but no obstruction apparent. The pancreas appeared within normal limits. She had experienced about a 10-pound weight loss since the symptom started in late November. Initial vital signs of BP 115/64, pulse 96, respirations 18, O2 saturation 100, and temperature 98.5. She was awake and alert, oriented. In the exam, was remarkable for some tenderness throughout the abdomen but no distention. No rebound tenderness. No guarding. Skin exam was normal. Neurological examination was nonfocal. The patient on the , felt somewhat better. She had been afebrile and her creatinine was 0.85. CO2 was decreased at 15 and chloride 111. She was receiving Abilify, Synthroid, pantoprazole, and Vyvanse and looks like she was also receiving Xyrem which is an analog of Gamma Amino Butyric Acid. This is for the treatment of narcolepsy. This was prescribed until the as per the records. However, there was some evidence that the patient might have been taking it from her own supply in the room. On January 06, the patient was described as appearing drunk, which was unresponsive to painful stimuli and flaccid without any reflexes. The pupils were described as reactive. Stat CT of brain was ordered, which demonstrated diffuse sulcal effacement in both cerebral hemispheres, which was a new finding compared with prior exam. Her CO2 had decreased to 13, which seem to have been a trend that had started two days before and her lactic acid was up to 4.7. Neurosurgery recommended MRI. The MRI was nonspecific. Some findings were felt to be concerning for meningitis, although again not specific. She continued to deteriorate. She was then intubated and transferred to the ICU, and has been started on broad-spectrum antimicrobial coverage. Lactic acidosis worsened. She developed recurrent episodes of hypoglycemia and Dr. Tovar was consulted in addition to Neurosurgery. He felt the patient might have potential inborn metabolic disorder, particularly in view of the hyperammonemia detected with levels graded in the upper limit of the range that the machine can measure. After this was found out, she has been started on hemodialysis. Currently, Ms. Mena Figueroa was placed in prone position in bed. She has been hemodialyzed. She is on three different vasopressors and her blood pressure has improved to 111/60. She is tachycardic. T-max 100.6. PAST MEDICAL HISTORY: Again, narcolepsy, depression, hypothyroidism, and cardiomyopathy. PAST SURGICAL HISTORY: Hysterectomy, ovarian cystectomy. MEDICATIONS: At home: 1. Nuvigil. 2. Levothyroxine. 3. Xyrem. 4. Vyvanse. 5. Abilify. Now, she is receivin. Calcium. 2. Cefepime. 3. Diphenhydramine. 4. Dobutamine. 5. Hydralazine. 6. Lactulose. 7. Levocarnitine. 8. Levothyroxine. 9. Medrol. 10. Flagyl. 11. Norepinephrine. 12. Vasopressin. 13. Vancomycin. ALLERGIES: SHE IS ALLERGIC TO MORPHINE SULFATE AND DILANTIN. FAMILY HISTORY: Noncontributory. SOCIAL HISTORY: Lives in [place]. Does not drink alcoholic beverages. No illicit drug use. Does not smoke. PHYSICAL EXAMINATION: Current vital signs, temperature now is 96.7, BP 101/70, pulse 121, O2 saturation 91% at prone position with I believe 100% FiO2. The examination was limited. I could not have a full skin exam because of the prone position. Pupils are widely dilated and fixed. No brainstem function appears to be noticeable or tracheal intubation. Lungs with symmetric air entry. No crackles or wheezing. I could not evaluate her heart due to the prone position or the abdomen. She has a Mclain catheter in place and urine output total is 295 for the past few hours. She is positive at 2500. The extremities are cool to touch, but not cyanotic. She is unresponsive at this time. LABORATORY DATA: The latest laboratory results with white cell count 5.3, hemoglobin 11.4, MCV 88, platelets 442. Bilirubin 0.2, AST 214, ALT 70, alkaline phosphatase 84, BNP is 575, albumin 2.5. Microbiology, we have negative stool evaluation including C difficile. ASSESSMENT: 1. History of narcolepsy on various treatments including EARL agonist, methamphetamine analog, modafinil, she is also on Abilify. 2. Recurrent episodes of vomiting and nausea for the past few weeks of unclear etiology after extensive evaluation, as well as after cholecystectomy. 3. Lactic acidosis with hyperammonemia without corresponding liver function test abnormalities to justify the hyperammonemia. 4. Imaging changes on CT scan suggestive of brain edema. DISCUSSION: As discussed by Dr. Tovar, an ammonia cycle inborn error of metabolism with late onset, such as for example late onset ornithine transcarbamylase deficiency, is possible. The patient is already being dialyzed, which is therapeutic and other measures will be entertained as well. Testing for this abnormality to be undertaken since it would not only help with pts management if diagnosis is established but also for family genetic counseling. The prognosis for neurological recovery is not yet clear this early on. Dr. Trevizo has been consulted. I believe meningitis is unlikely and other infectious complication is not likely at this point in time. Job ID: [id number] [facility]
[2019-01-08 04:51] LABS: Fibrinogen 223 mg/dL (253-463)
[2019-01-08 04:52] LABS: PTT 36.4 SEC (22.9-36.1)
[2019-01-08 04:53] LABS: D-Dimer Test 1.65 *mcg/mL (0.27-0.43)
[2019-01-08 04:55] LABS: INR-International Normal Ratio 5.2
[2019-01-08 04:59] LABS: Platelet Count 286 thou/uL (130-400)
[2019-01-08 05:06] LABS: Band 45 % (5-11); Hemoglobin 11.4 g/dL (12.0-16.0); Lymphocytes 4 % (21-51); MDiff Complete? YES; Mean Corpuscular Volume 88.2 fL (78.0-98.0); Mean Platelet Volume 7.6 fL (7.4-10.4); Neutrophil 51 % (42-75); Platelet Count 293 thou/uL (130-400); Platelet Morphology Comment Appears Adequate; RBC Distribution Width 13.7 % (11.5-14.5); White Blood Cell (WBC) Count 18.9 thou/uL (4.8-10.8)
[2019-01-08 05:08] LABS: ALT (SGPT) 82 U/L (8-55); AST (SGOT) 356 U/L (5-34); Albumin 3.2 g/dL (3.5-5.0); Alkaline Phosphatase 69 U/L (40-150); Anion Gap 26 mmol/L (10-20); BUN (Urea Nitrogen) 13 mg/dL (7.0-18.7); Bilirubin, Total 0.4 mg/dL (0.2-1.2); Calc. Creatinine Clearance 66 mL/min (70-130); Calcium 7.4 mg/dL (7.8-10.44); Carbon Dioxide 11 mmol/L (22-29); Chloride 105 mmol/L (98-107); Estimated GFR-MDRD 75; Globulin 1.4 g/dL (2.4-3.5); Glucose 142 mg/dL (70-105); Lactic Acid 10.8 mmol/L (0.5-2.2); Magnesium 2.6 mg/dL (1.6-2.6); Potassium 4.3 mmol/L (3.5-5.1); Protein, Total 4.6 g/dL (6.0-8.3); Sodium 138 mmol/L (136-145)
[2019-01-08 05:09] LABS: Phosphorus 4.6 mg/dL (2.3-4.7)
[2019-01-08 05:14] LABS: FSP-Qualitative Normal (Normal)
[2019-01-08] MEDS ORDERED: Albumin 25% 200 ML ONE (05:40)
[2019-01-08] MEDS: Levothyroxine Sodium 75 MCG TAB PO SCH (06:10)
[2019-01-08 06:24] LABS: Actual Bicarbonate (HCO3a) 10.6 mEq/L (22-28); Base Excess (BEa) -14.2 mEq/L (-2.0 to +3.0); Calcium, Ionized 1.02 mmol/L (1.12-1.30); Carboxyhemoglobin (COHb) 0.4 gm% (0.0-3.0); O2 Tension (PaO2) 78.4 mmHg (80.0-100.0); Potassium - ABG Lab 4.19 mmol/L (3.70-5.30); pH, Arterial 7.29 (7.35-7.45)
[2019-01-08 06:27] LABS: CO2 Tension 22.8 mmHg (35.0-45.0)
[2019-01-08 06:28] LABS: Puncture Site ALINE
[2019-01-08] MEDS ORDERED: Phytonadione 10 MG/ML AMP SC SCH (06:30)
--- NOTE | 2019-01-08 07:20 | PRG ---
DATE OF SERVICE: 01/08/2019 SUBJECTIVE: The patient is seen and examined, still in prone position, undergoing dialysis. Noted with slight improvement in hemodynamics. OBJECTIVE: HEENT: Remarkable for endotracheal tube in place. CARDIOVASCULAR: First and second heart sounds were heard. RESPIRATORY: Revealed ventilator sounds. DIGESTIVE: Could not be evaluated given the fact the patient is in prone position. LABORATORY INVESTIGATION: Showed lactic acid of 10.8, bicarb of 11, AST of 356, and ALT of 82, ammonia of 74. CBC showed a white count of 18,900. INR of 5.2. Blood gas revealed a pH of 7.29 with a pCO2 of 22, PO2 of 78. IMPRESSION: 1. Fulminant hepatic failure, query cause. The patient being worked up for possible metabolic cause; however, has not completely ruled out medication effect. 2. Metabolic acidosis in the context of lactic acidemia/liver failure. 3. Cardiopulmonary failure, on life support with labile hemodynamics. 4. Hyperammonemia related to fulminant hepatic failure. PLAN: 1. The patient to continue with modified hemodialysis with a prolonged dialysis of about 5 to 6 hours with a low blood flow rate because of the labile hemodynamics. 2. We will adjust the dialysis prescription to increase the bicarb load that this patient can receive within the time of dialysis. 3. Further management will be dependent on the clinical course. The prognosis is too poor. Job ID: [id number]
--- NOTE | 2019-01-08 07:27 | PRG ---
DATE OF SERVICE: 01/08/2019 SERVICE: Pulmonary Medicine. INTERVAL HISTORY: The patient is doing poorly from a neurologic standpoint. Her INR went up, her lactate went back up. She has not moved at all overnight. She does not take any spontaneous breaths. She cannot provide any additional elements of the history. We are on three pressors. We were able to come off one of them last night, but the other one is trended upward. She cannot provide any additional elements of the history at this point. PHYSICAL EXAMINATION: VITAL SIGNS: Currently, afebrile. Maximum temperature overnight was 100.6. She was also hypothermic. Heart rate 129, blood pressure 98/76, respirations 19, and saturation 95% on 100% FiO2 and a PEEP of 10. GENERAL: The patient is intubated. She is requiring no sedation. She is comatose. HEENT: Normocephalic and atraumatic. Sclerae white. Conjunctivae pink. Oral mucosa is moist without lesions. LUNGS: Much improved air entry. Crackles have improved. HEART: Normal rate. Regular. ABDOMEN: Soft, nontender, and nondistended. Bowel sounds are positive. MUSCULOSKELETAL: No cyanosis or clubbing. There is no pitting in the bilateral lower extremities. NEUROLOGIC: She has pupils that are fixed and dilated. She does not overbreathe the ventilator, demonstrate cough or gag. She has no withdrawal from noxious stimuli in upper lower extremities. LABORATORY DATA: WBC 18.9, hemoglobin 11.4, and platelets 293,000. A pH 7.29, pCO2 of 23, PO2 of 78, corresponding to a saturation of 93%. Creatinine 0.8. Basic metabolic profile is otherwise unremarkable except for a bicarb that is dropping off to 11, and an anion gap that is up trending. Lactic acid has increased to 10.8. Liver function studies are otherwise unremarkable. Her AST and ALT are gently trending upward. TSH is 0.17. Ammonia has improved to 74. C diff antigen and toxin are unremarkable, stool lactoferrin was positive. ASSESSMENT: 1. Respiratory failure secondary to inability to protect airway. 2. Metabolic encephalopathy. 3. Seizure, suspected. 4. Septic shock. 5. Healthcare-associated pneumonia, possible. 6. Hyperammonemia, unknown cause. DISCUSSION AND PLAN: We will continue her empiric antibiotics. We will continue the empiric steroids. We are going to continue dialyzing her on a daily basis. Clinically, she may have of the brainstem. If she has no neurologic recovery in the next 12 to 24 hours, a flow scan would be indicated. She will need genetic testing and likely an autopsy to see whether or not she has any inheritable disease that would help her children out. Pulmonary/Critical Care will continue to follow while she remains here. CRITICAL CARE TIME: 30 minutes. Job ID: [id number]
--- NOTE | 2019-01-08 07:58 | PDOC.HOSPP ---
- Subjective Subjective: Unresponsive on [facility] ventilation. Nursing reports pt remains on 3 pressors and currently undergoing HD. - Objective Vital Signs & Weight: Vital Signs (12 hours) Temp Pulse Resp BP Pulse Ox 01/08/19 07:42 115 H 89/56 L 01/08/19 07:00 98.7 F 01/08/19 06:00 01/08/19 04:00 98.0 F 01/08/19 02:39 120 H 01/08/19 02:00 01/08/19 00:00 96.5 F L 01/07/19 22:12 114 H 01/07/19 22:00 94.7 F L 01/07/19 20:00 94.6 F L 23 H 95 Weight Admit Weight 108 lb 9.6 oz Weight 108 lb 14.534 oz Most Recent Monitor Data Heart Rate from ECG 116 NIBP 83/57 NIBP BP-Mean 65 Respiration from ECG 19 SpO2 96 I&O: 01/07/19 01/08/19 01/09/19 06:59 06:59 06:59 Intake Total 1600 4796.2 Output Total 655 1025 20 Balance 945 3771.2 -20 Result Diagrams: 01/08/19 04:20 01/08/19 04:20 Additional Labs: Accuchecks 01/08/19 01/08/19 01/07/19 04:27 00:51 21:34 POC Glucose 125 H 111 H 103 01/07/19 01/07/19 01/07/19 20:40 20:35 18:20 POC Glucose 98 80 107 01/07/19 01/07/19 01/07/19 17:24 16:13 14:59 POC Glucose 99 132 H 150 H 01/07/19 01/07/19 01/07/19 13:05 12:08 11:10 POC Glucose 205 H 209 H 275 H 01/07/19 01/07/19 10:04 09:16 POC Glucose 215 H 142 H Laboratory Tests 01/04/19 01/04/19 01/04/19 10:03 10:03 10:03 WBC Hgb 11.8 L Plt Count 480 H Band Neuts % (Manual) INR Bicarbonate Actual ABG pH ABG pCO2 ABG pO2 ABG O2 Sat Calc/Kenzie Carbon Dioxide 14 L Insulin Level C-Peptide Lactic Acid 0.8 Phosphorus Magnesium AST ALT Ammonia Procalcitonin TSH 3rd Generation Prolactin Acetaminophen Valproic Acid Ur Amphetamines Screen 01/05/19 01/05/19 01/06/19 09:08 09:08 00:05 WBC Hgb 11.9 L Plt Count 410 H Band Neuts % (Manual) INR Bicarbonate Actual ABG pH ABG pCO2 ABG pO2 ABG O2 Sat Calc/Kenzie Carbon Dioxide 15 L Insulin Level C-Peptide Lactic Acid Phosphorus Magnesium AST ALT Ammonia Procalcitonin TSH 3rd Generation Prolactin Acetaminophen Valproic Acid Ur Amphetamines Screen Detected H 01/06/19 01/06/19 01/06/19 20:22 20:23 20:23 WBC Hgb Plt Count Band Neuts % (Manual) INR Bicarbonate Actual ABG pH ABG pCO2 ABG pO2 ABG O2 Sat Calc/Kenzie Carbon Dioxide 13 L Insulin Level C-Peptide Lactic Acid 4.7 H* Phosphorus Magnesium AST ALT Ammonia Procalcitonin TSH 3rd Generation Prolactin 17.13 Acetaminophen Valproic Acid Ur Amphetamines Screen 01/07/19 01/07/19 01/07/19 02:08 02:08 02:08 WBC Hgb Plt Count Band Neuts % (Manual) INR Bicarbonate Actual ABG pH ABG pCO2 ABG pO2 ABG O2 Sat Calc/Kenzie Carbon Dioxide 11 L Insulin Level C-Peptide Lactic Acid 6.1 H* Phosphorus Magnesium AST ALT Ammonia Procalcitonin 0.53 TSH 3rd Generation Prolactin Acetaminophen Valproic Acid Ur Amphetamines Screen 01/07/19 01/07/19 01/07/19 07:13 11:22 11:22 WBC Hgb Plt Count Band Neuts % (Manual) INR Bicarbonate Actual 8.9 L ABG pH 7.40 ABG pCO2 14.7 L* ABG pO2 74.1 L ABG O2 Sat Calc/Kenzie 93.9 L Carbon Dioxide Insulin Level 3.4 C-Peptide Lactic Acid Phosphorus Magnesium AST ALT Ammonia Greater than 926 H Procalcitonin TSH 3rd Generation Prolactin Acetaminophen Valproic Acid Ur Amphetamines Screen 01/07/19 01/07/19 01/07/19 11:22 13:42 13:42 WBC Hgb Plt Count Band Neuts % (Manual) INR 3.7 Bicarbonate Actual ABG pH ABG pCO2 ABG pO2 ABG O2 Sat Calc/Kenzie Carbon Dioxide Insulin Level C-Peptide 2.3 Lactic Acid Phosphorus Magnesium AST 214 H ALT 70 H Ammonia Procalcitonin TSH 3rd Generation Prolactin Acetaminophen Less than 6.0 L Valproic Acid Ur Amphetamines Screen 01/07/19 01/07/19 01/07/19 18:30 18:30 18:30 WBC 8.3 Hgb Plt Count Band Neuts % (Manual) 21 H INR Bicarbonate Actual ABG pH ABG pCO2 ABG pO2 ABG O2 Sat Calc/Kenzie Carbon Dioxide Insulin Level C-Peptide Lactic Acid 5.8 H* Phosphorus Magnesium AST ALT Ammonia Procalcitonin TSH 3rd Generation Prolactin Acetaminophen Valproic Acid Less than 12.5 L Ur Amphetamines Screen 01/08/19 01/08/19 01/08/19 04:20 04:20 04:20 WBC Hgb Plt Count Band Neuts % (Manual) INR Bicarbonate Actual ABG pH ABG pCO2 ABG pO2 ABG O2 Sat Calc/Kenzie Carbon Dioxide Insulin Level C-Peptide Lactic Acid 10.8 H* Phosphorus Magnesium 2.6 AST 356 H ALT 82 H Ammonia Procalcitonin TSH 3rd Generation 0.1574 L Prolactin Acetaminophen Valproic Acid Ur Amphetamines Screen 01/08/19 01/08/19 01/08/19 04:20 04:20 04:20 WBC Hgb Plt Count Band Neuts % (Manual) 45 H INR Bicarbonate Actual ABG pH ABG pCO2 ABG pO2 ABG O2 Sat Calc/Kenzie Carbon Dioxide Insulin Level C-Peptide Lactic Acid Phosphorus 4.6 Magnesium AST ALT Ammonia 74 H Procalcitonin TSH 3rd Generation Prolactin Acetaminophen Valproic Acid Ur Amphetamines Screen 01/08/19 04:20 WBC Hgb Plt Count Band Neuts % (Manual) INR 5.2 H* Bicarbonate Actual ABG pH ABG pCO2 ABG pO2 ABG O2 Sat Calc/Kenzie Carbon Dioxide Insulin Level C-Peptide Lactic Acid Phosphorus Magnesium AST ALT Ammonia Procalcitonin TSH 3rd Generation Prolactin Acetaminophen Valproic Acid Ur Amphetamines Screen Radiology Reviewed by me: Yes (ABD sono - coarse liver margins, normal flow) EKG Reviewed by me: Yes (Tele - Sinus tachycardia) ROS - Review of Systems All systems: All other ROS were reviewed and found negative. - Medication Medications: Active Medications Generic Name Dose Route Start Last Admin Trade Name Freq PRN Reason Stop Dose Admin Dextrose/Water 25 gm 01/07/19 03:52 01/07/19 06:25 Dextrose 50% IVP 25 gm PRN PRN Administration HYPOGLYCEMIA PROTOCOL Metronidazole 500 mg/ Device 100 mls @ 100 mls/hr 01/07/19 12:00 01/08/19 06: 10 IVPB 100 mls Q6HR LEEANNA Administration Cefepime HCl 2 gm/ Sodium 100 mls @ 200 mls/hr 01/07/19 12:00 01/08/19 00:37 Chloride IVPB 100 mls 0000,1200 LEEANNA Administration Norepinephrine Bitartrate 16 250 mls @ 0 mls/hr 01/07/19 17:00 01/08/19 07:42 mg/ Dextrose/Water IVPB 250 mls INF PRN Administration TO MAINTAIN MAP > 65 Protocol As Directed Dextrose/Water 1,000 mls @ 20 mls/hr 01/07/19 17:15 01/07/19 17:36 Dextrose 10% In Water IV 1,000 mls .Q24H LEEANNA Administration Methylprednisolone Sodium Succinate 40 mg 01/07/19 12:00 01/08/19 06:10 Solu-Medrol IVP 40 mg Q6HR LEEANNA Administration Pantoprazole Sodium 40 mg 01/05/19 09:00 01/07/19 09:00 Protonix IVP 40 mg DAILY LEEANNA Administration Phytonadione 5 mg 01/08/19 06:30 01/08/19 06:22 [place] 01/08/19 08:30 5 mg NOW LEEANNA Administration - Exam ill appearing (laying prone, mech ventilation, ETT in place no gag/cough reflex) Eye: anicteric sclera (dilated, fixed pupils) ENT: normocephalic atraumatic, no oropharyngeal lesions Neck: supple, symmetric, no JVD, no Thyromegaly Heart: no murmur, no gallops, no rubs (S1, S2 with tachycardia) Respiratory: no wheezes, no rales, rhonchi (few scattered rhonchi) Gastrointestinal: soft, non-distended, normal bowel sounds ([place] with clear urine), no palpable masses Extremities: no cyanosis, no clubbing, no edema Hosp A/P (1) Acute respiratory failure with hypoxia Code(s): J96.01 - ACUTE RESPIRATORY FAILURE WITH HYPOXIA Status: Acute Plan: Remains on 100% FIO2, vent dependent and not overbreathing vent, continue pulmonary support, PCXR in am (2) Septic shock Code(s): A41.9 - SEPSIS, UNSPECIFIED ORGANISM; R65.21 - SEVERE SEPSIS WITH SEPTIC SHOCK Status: Acute Plan: Suspected, awaiting blood/urine cx results, continue broad-spectrum IV abx, Cefepime, Metronidazole, Vancomycin, localizing infectious process not identified currently (3) Acute metabolic encephalopathy Code(s): G93.41 - METABOLIC ENCEPHALOPATHY Status: Acute Plan: Persistent, ? hypoxic/metabolic injury that may be irreversible, consider flow study to ascertain perfusion (4) Hypoglycemia Code(s): E16.2 - HYPOGLYCEMIA, UNSPECIFIED Status: Acute Plan: Improved, continue D10, Solumedrol (5) Hyperammonemia Code(s): E72.20 - DISORDER OF UREA CYCLE METABOLISM, UNSPECIFIED Status: Acute Plan: Etiology unclear, continue HD for mgmt, improved levels in last 24h (6) Lactic acidosis Code(s): E87.2 - ACIDOSIS Status: Acute Plan: Persistent, suspected multifactorial etiology, continue pulmonary support, IV abx, IVF's and HD (7) Shock liver Code(s): K72.00 - ACUTE AND SUBACUTE HEPATIC FAILURE WITHOUT COMA Status: Acute Plan: Suspected due to sepsis and hypotension, normal flow noted on duplex sono, no obstruction identified, serial monitoring, Hep A/B/C negative (8) Hypothyroid Code(s): E03.9 - HYPOTHYROIDISM, UNSPECIFIED Status: Chronic Qualifiers: Hypothyroidism type: unspecified Qualified Code(s): E03.9 - Hypothyroidism , unspecified (9) Malnutrition Code(s): E46 - UNSPECIFIED PROTEIN-CALORIE MALNUTRITION Status: Chronic Qualifiers: Malnutrition type: protein-calorie malnutrition Protein-calorie malnutrition severity: moderate Qualified Code(s): E44.0 - Moderate protein- calorie malnutrition - Plan continue antibiotics, social work professor, respiratory therapy, DVT proph w/SCDs Continue critical support Prognosis remains guarded given persistent acidosis and lack of reflexes Consider brain imaging for flow analysis Continue HD today Continue mech ventilation 2D echo pending AM lab: CMP, CBC, ABG Family meeting planned this am
[2019-01-08] MEDS ORDERED: Heparin 10,000 UNITS/ 10 ML VIAL ONE (08:36)
[2019-01-08] MEDS: Vancomycin HCl 1 GM in Premix Bag 1 BAG IVPB SCH ×2 (10:33→23:39)
[2019-01-08] MEDS: Pantoprazole 40 MG VIAL IVP SCH (10:33)
[2019-01-08] MEDS ORDERED: Albumin 5% 250 ML ONE (12:28)
[2019-01-08] MEDS ORDERED: Albumin 25% 25 GM/100 ML BOT IVPB SCH (12:30)
--- NOTE | 2019-01-08 13:42 | CON ---
DATE OF CONSULTATION: REQUESTING PHYSICIAN: Bon Tovar MD REASON FOR CONSULTATION: Need for renal replacement therapy, hemodialysis. IMPRESSION: 1. Acute hepatic failure, query cause, possibly related to medication. 2. Hyperammonemia related to problem #1. 3. Metabolic acidosis. PLAN: 1. Emergent hemodialysis access to be secured. 2. We will have the patient undergo modified hemodialysis, sort of CVVHD with low blood flow and low temperature. 3. Further management to be dependent on the clinical course. HISTORY OF PRESENT ILLNESS: A 38-year-old female patient who is status post cholecystectomy, presented here with nausea and vomiting. The patient has had dialysis in the ER with different complaints. Clinical evaluation revealed a severe hyperammonemia in the context of hepatic failure. As a result of the severe hyperammonemia, decision has now been taken to involve Renal in the management of this case. PAST MEDICAL HISTORY: Significant for major depressive disorder, narcolepsy, hypothyroidism, and cardiomyopathy. ALLERGIES: TO MORPHINE AND DILANTIN. MEDICATIONS: Reviewed as documented on INFOGRAPHIQS. FAMILY HISTORY: Not significantly related to present illness. SOCIAL HISTORY: No alcohol, no tobacco, no illicit drug use. REVIEW OF SYSTEMS: As documented in the body of the history. All other systems were reviewed and found not to be significantly related to present illness. LABORATORY INVESTIGATION: Significant for sodium of 120. PHYSICAL EXAMINATION: GENERAL: The patient was found to be intubated and in very critical condition with systolic blood pressure in the 60s. HEENT: Remarkable. Endotracheal tube in place. CARDIOVASCULAR: First and second heart sounds were heard. RESPIRATORY: Revealed ventilator sounds. DIGESTIVE: Revealed a benign abdomen. EXTREMITIES: No peripheral edema. SKIN: No new gross rash. LYMPHATICS: No peripheral lymphadenopathy. . Job ID: [id number]
--- NOTE | 2019-01-08 14:11 | OP ---
DATE OF PROCEDURE: 01/08/2019 PROCEDURES PERFORMED: Femoral dialysis catheter placement and arterial line placement. INDICATION: Fulminant hepatic failure with hyperammonemia and hemodynamic instability. MEDICATION: 2% lidocaine. DETAILS OF PROCEDURE: After informed consent was obtained, the patient was prepped and draped in a sterile fashion. The right femoral vein was approached in layers under real-time ultrasound guidance. After serial dilatation, a Trialysis catheter was secured in place and all ports were tested for good flow. Attention was then drawn to the right femoral artery, which was also cannulated under real-time ultrasound guidance and arterial line was successfully placed. Blood loss insignificant/minimal. The patient tolerated the procedure well with no immediate postop complications. Job ID: [id number]
--- NOTE | 2019-01-08 14:14 | OP ---
DATE OF PROCEDURE: 01/07/2019 SERVICE: Pulmonary Medicine. PROCEDURE PERFORMED: Left-sided triple-lumen internal jugular central venous catheter placement under ultrasound guidance. CONSENT: This was performed emergently secondary to clinical deterioration. Consent was implied. MEDICATIONS USED: None. PREOPERATIVE DIAGNOSES: 1. Shock. 2. Metabolic encephalopathy. POSTPROCEDURE DIAGNOSES: 1. Shock. 2. Metabolic encephalopathy. DESCRIPTION OF PROCEDURE: Vital sign monitoring was accomplished by noninvasive hemodynamic monitoring, pulse oximetry, and telemetry. A time-out was performed and the patient was positively identified using name and date of . The procedure site was marked. The patient was placed in the supine position, and the left neck was prepped and draped in sterile fashion. The course of the IJ was mapped. The cannulation needle was placed in the IJ under direct ultrasound guidance with return of dark red, nonpulsatile blood on the first attempt. A J-shaped guidewire was threaded through the cannulation needle without difficulty. A small incision was made and the dilator and triple-lumen central catheter were serially threaded over the guidewire. The catheter was sutured to the skin at 18 cm with 3-0 silk sutures x2. All 3 ports withdrew and flushed without difficulty. A sterile dressing was applied. The procedure was terminated. Postprocedure x-ray demonstrated good location for the tip of the catheter. ESTIMATED BLOOD LOSS: 5 mL. COMPLICATIONS: None. Job ID: [id number] [facility]
--- NOTE | 2019-01-08 14:53 | PRG ---
DATE OF SERVICE: 01/08/2019 CONSULTING PHYSICIAN: Hospitalist Service. Ms. Figueroa remained cardiovascularly stable overnight. There, she is being prepared for further dialysis today. She is not showing any sign of her breathing over the ventilator. On physical exam, her pupils are fixed and dilated. She has no Doll's head response. She has no corneal response. She had no truncal pain response. She did have slight plantar responses to stimulation. Her lab work showed a bicarb of 16 and mild elevations of liver enzymes. Her ammonia level was down to 76. Despite the improvement in her metabolic status, she is failing to show any signs of awakening. She is being prepared for dialysis this morning. I would go ahead and repeat an EEG this afternoon and see if there is any visible improvement. I will continue to follow in her care. Job ID: [id number]
[2019-01-08 15:14] VITALS: BMI 19.3
[2019-01-08] MEDS: Dextrose 10% in Water 1,000 ML IV SCH (16:35)
[2019-01-08] MEDS: Vasopressin 40 UNIT, Admixture Fee 1 EACH in Sodium Chloride 0.9% 100 ML IV SCH (16:44)
[2019-01-09] MEDS ORDERED: Bacteriostatic Water 30 ML VIAL FS PRN (04:18)
[2019-01-09 04:50] VITALS: TEMP 98.2
[2019-01-09] MEDS: methylPREDNISolone Sod Succ 40 MG VIAL IVP SCH ×2 (05:28→13:14)
[2019-01-09] MEDS: metroNIDAZOLE 500 MG in Premix Bag 1 BAG IVPB SCH ×2 (05:28→13:13)
[2019-01-09 06:16] LABS: Band 28 % (5-11); Hemoglobin 9.6 g/dL (12.0-16.0); Hypochromia SLIGHT = 6-15 cells (100X) (0-5/hpf); Lymphocytes 3 % (21-51); MDiff Complete? YES; Mean Corpuscular HGB CONC 34.3 g/dL (32.0-36.0); Mean Corpuscular Hemoglobin 30.5 pg (27.0-31.0); Mean Corpuscular Volume 89.1 fL (78.0-98.0); Mean Platelet Volume 8.1 fL (7.4-10.4); Metamyelocyte 2 % (0-0); Monocytes 2 % (0-10); Neutrophil 65 % (42-75); Platelet Count 160 thou/uL (130-400); Platelet Morphology Comment Appears Adequate; Red Blood Cell (RBC) Count 3.14 mill/uL (4.20-5.40)
[2019-01-09 06:24] LABS: ALT (SGPT) 135 U/L (8-55); AST (SGOT) 397 U/L (5-34); Albumin 3.9 g/dL (3.5-5.0); Alkaline Phosphatase 79 U/L (40-150); Anion Gap 25 mmol/L (10-20); BUN (Urea Nitrogen) 22 mg/dL (7.0-18.7); Bilirubin, Total 0.4 mg/dL (0.2-1.2); Calc. Creatinine Clearance 44 mL/min (70-130); Calcium 7.9 mg/dL (7.8-10.44); Carbon Dioxide 16 mmol/L (22-29); Chloride 97 mmol/L (98-107); Estimated GFR-MDRD 44; Globulin 1.5 g/dL (2.4-3.5); Glucose 324 mg/dL (70-105); Magnesium 2.3 mg/dL (1.6-2.6); Potassium 2.8 mmol/L (3.5-5.1); Protein, Total 5.4 g/dL (6.0-8.3); Sodium 135 mmol/L (136-145)
[2019-01-09 06:39] LABS: Actual Bicarbonate (HCO3a) 16.3 mEq/L (22-28); Base Excess (BEa) -6.8 mEq/L (-2.0 to +3.0); Carboxyhemoglobin (COHb) 0.1 gm% (0.0-3.0); Hemoglobin (Hb) 10.1 g/dL (12.0-16.0); pH, Arterial 7.42 (7.35-7.45)
[2019-01-09 06:44] LABS: CO2 Tension 25.5 mmHg (35.0-45.0)
[2019-01-09 06:45] LABS: ALV-art Gradient 553.125 (0-20); Puncture Site A-LINE
[2019-01-09] MEDS ORDERED: Potassium Phosphate 30 MMOL in Sodium Chloride 0.9% 500 ML IVPB SCH (07:30)
--- NOTE | 2019-01-09 07:44 | PRG ---
DATE OF SERVICE: 01/09/2019 SUBJECTIVE: Ms. Figueroa is intubated. She is unresponsive without any signs of brainstem function with fixed pupils. She had an EEG, which showed little activity. Her vital signs show a little bit of tachycardia and a bit hypothermic, but now she is normothermic. Her blood pressure is 120/70, pulse 110, O2 sats 98. She has fixed pupils, symmetric lung sounds without crackles or wheezing, S1, S2. She is in a prone position and I could not evaluate her abdomen. The abdominal ultrasound showed abnormal liver echotexture, which was diffuse with a very coarse echogenicity throughout the hepatic and portal venous flow appear to be within normal limits. The INR went up to 5.2, and she has moderate elevations of AST and ALT and alkaline phosphatase is normal, bilirubin is 0.94. ASSESSMENT AND DISCUSSION: 1. History of narcolepsy, on various treatment modalities. 2. Refractory nausea and vomiting, which has led to interventions including cholecystectomy and 1 previous admission to the hospital and now development of coma with lack of evidence of brainstem function. Brain edema secondary to either hyperacute or fulminant liver failure or some other underlying urea cycle metabolism disorder. Her hepatitis serology was negative and Kareem's disease is being evaluated as well as tests for urea cycle metabolism abnormality. Another possibility would be Bal syndrome. Evidently, if the patient does not have any signs of brainstem function then decision will have to be made to discontinue interventions eventually. Job ID: [id number] [facility]
[2019-01-09] MEDS ORDERED: Potassium Chloride 40 MEQ in Sodium Chloride 0.9% 250 ML 250 ML IVPB SCH (07:45)
[2019-01-09] MEDS: Pantoprazole 40 MG VIAL IVP SCH (08:14)
[2019-01-09] MEDS: Vasopressin 40 UNIT, Admixture Fee 1 EACH in Sodium Chloride 0.9% 100 ML IV SCH (08:14)
[2019-01-09 10:37] LABS: Vancomycin, Trough 29.5 ug/mL
[2019-01-09] MEDS: Vancomycin HCl 1 GM in Premix Bag 1 BAG IVPB SCH (12:21)
--- NOTE | 2019-01-09 12:25 | NM ---
NUCLEAR MEDICINE BRAIN CEREBRAL FLOW STUDY: Date: 01/09/19 HISTORY: Brain . RADIOPHARMACEUTICAL: 27 mCi technetium-99m HMPAO injected intravenously. FINDINGS: No intracerebral flow is seen. No tracer localization is noted in the brain parenchyma. IMPRESSION: Absent brain perfusion. POS: MARCELINO
--- NOTE | 2019-01-09 12:33 | PRG ---
DATE OF SERVICE: 01/09/2019 SUBJECTIVE: This morning, she had a repeat lab, which showed her white count was 15,000, H and H of 9 and 28, slight left shift. Creatinine 1.3. Glucose was elevated. Liver function abnormal. A brain scan was ordered. Neurologist heard audio and felt she was brain . EEG showed no activity. Brain flow showed no blood flow. We are awaiting the actual report on the brain flows to pronounce legally brain at that time. The patient's father was at the bedside. I explained to him at length that his daughter was brain . Options at this time were to; 1. Do an autopsy if he wanted to be. 2. Consider organ harvesting if that is what they wanted. 3. Extubate. We probably calling Respiratory team if they needed to do so. Please note, the transplant harvest team is at the bedside. They will put the time of . IMPRESSION: 1. Acute metabolic encephalopathy, etiology unclear. 2. Marked hyperammonemia. 3. Brain . 4. Abnormal liver function. DISPOSITION: As per family. Job ID: [id number]
--- NOTE | 2019-01-09 13:03 | PRG ---
DATE OF SERVICE: 01/09/2019 SUBJECTIVE: Ms. Figueroa has been cardiovascularly stable overnight. They have been able to wean her pressors a bit. OBJECTIVE: VITAL SIGNS: Her pulse rate is 112, blood pressure is 05/76. She is afebrile. GENERAL: She is on ventilatory support. She has no brainstem function on exam. IMAGING STUDIES: Her EEG from yesterday was reviewed and it appears consistent with electrocerebral silence. PLAN: She is pending nuclear cerebral flow study. I discussed the situation with her son. If the nuclear study is consistent with brain , we can discontinue support. Job ID: [id number]
[2019-01-09] MEDS: Cefepime 2 GM in Sodium Chloride 0.9% 100 ML IVPB SCH (13:13)
[2019-01-09 13:32] VITALS: BP 91/62
--- NOTE | 2019-01-09 15:30 | PDOC.HOSPP ---
- Subjective non-verbal - Objective Vital Signs & Weight: Vital Signs (12 hours) Temp Pulse Resp BP Pulse Ox 01/09/19 14:00 19 01/09/19 13:30 107 H 91/62 01/09/19 12:00 19 01/09/19 11:36 111 H 01/09/19 09:56 19 01/09/19 08:00 19 100 01/09/19 06:15 110 H 123/74 01/09/19 06:00 19 01/09/19 04:00 98.2 F 19 Weight Admit Weight 108 lb 9.6 oz Weight 108 lb 14.534 oz Most Recent Monitor Data Heart Rate from ECG 105 NIBP 89/56 NIBP BP-Mean 67 Respiration from ECG 19 SpO2 100 I&O: 01/08/19 01/09/19 01/10/19 06:59 06:59 06:59 Intake Total 4796.2 1724.3 950 Output Total 1025 490 180 Balance 3771.2 1234.3 770 Result Diagrams: 01/09/19 Unknown 01/09/19 Unknown Additional Labs: Accuchecks 01/09/19 01/09/19 01/09/19 13:30 09:53 07:33 POC Glucose 247 H 268 H 293 H 01/09/19 01/09/19 01/09/19 06:42 05:00 04:03 POC Glucose 289 H 310 H 293 H 01/09/19 01/08/19 01/08/19 02:01 22:19 20:24 POC Glucose 283 H 231 H 201 H 01/08/19 01/08/19 18:15 16:08 POC Glucose 178 H 154 H ROS - Review of Systems All systems: All other ROS were reviewed and found negative. - Medication Medications: Active Medications Generic Name Dose Route Start Last Admin Trade Name Freq PRN Reason Stop Dose Admin Dextrose/Water 25 gm 01/07/19 03:52 01/07/19 06:25 Dextrose 50% IVP 25 gm PRN PRN Administration HYPOGLYCEMIA PROTOCOL Metronidazole 500 mg/ Device 100 mls @ 100 mls/hr 01/07/19 12:00 01/09/19 13: 13 IVPB 100 mls Q6HR LEEANNA Administration Cefepime HCl 2 gm/ Sodium 100 mls @ 200 mls/hr 01/07/19 12:00 01/09/19 13:13 Chloride IVPB 100 mls 0000,1200 LEEANNA Administration Vasopressin 40 unit/ 102 mls @ 6 mls/hr 01/07/19 13:30 01/09/19 08:14 Miscellaneous Medication 1 IV 102 mls each/ Sodium Chloride INF LEEANNA Administration Protocol Norepinephrine Bitartrate 16 250 mls @ 0 mls/hr 01/07/19 17:00 01/08/19 16:34 mg/ Dextrose/Water IVPB 250 mls INF PRN Administration TO MAINTAIN MAP > 65 Protocol As Directed Dextrose/Water 1,000 mls @ 20 mls/hr 01/07/19 17:15 01/08/19 16:35 Dextrose 10% In Water IV Not Given .Q24H LEEANNA Methylprednisolone Sodium Succinate 40 mg 01/09/19 06:00 01/09/19 13:14 Solu-Medrol IVP 40 mg Q6HR LEEANNA Administration Pantoprazole Sodium 40 mg 01/05/19 09:00 01/09/19 08:14 Protonix IVP 40 mg DAILY LEEANNA Administration - Exam NAD (Intubated. Mechanically ventilated.) Heart: RRR, no murmur, no gallops, no rubs, normal peripheral pulses Respiratory: CTAB, no wheezes, no rales, no ronchi, normal chest expansion, no tachypnea, normal percussion Gastrointestinal: soft, non-distended Extremities: no cyanosis, no clubbing, no edema Hosp A/P (1) Brain Code(s): G93.82 - BRAIN Status: Acute (2) Acute metabolic encephalopathy Code(s): G93.41 - METABOLIC ENCEPHALOPATHY Status: Acute (3) Hyperammonemia Code(s): E72.20 - DISORDER OF UREA CYCLE METABOLISM, UNSPECIFIED Status: Acute (4) Pneumonia Code(s): J18.9 - PNEUMONIA, UNSPECIFIED ORGANISM Status: Acute Plan: suspected. - Plan Dr. Evangelista had informed the patient's family of the flow study showing now cerebral perfusion. They have met with the transplant nurse and have decided to donate organs/ tissue. Genetic studies will be sent to investigate the potential source of the severe hyperammonemia.
[2019-01-09] MEDS ORDERED: Vancomycin HCl 1 GM in Premix Bag 1 BAG IVPB SCH (23:00)
[2019-01-10 19:07] LABS: Norovirus GI Negative (Negative); Norovirus GII Negative (Negative)
--- NOTE | 2019-01-11 08:03 | PRG ---
DATE OF SERVICE: 01/09/2019 SUBJECTIVE: Mena Figueroa is a 38-year-old unfortunate female, remains unresponsive on the vent this morning. Pupils are fixed and dilated. EEG shows very little activity if any at all. The boyfriend at the bedside. I told her about the findings that is the [facility] team for organ procurement at the bedside. They want a brain scan to see whether she got any activity. This is being done. OBJECTIVE: VITAL SIGNS: Otherwise, blood pressure 109/82, respirations 10 Afebrile. CHEST: Decreased breath sounds. No wheezing. CARDIAC: Normal S1, S2. No gallops. ABDOMEN: No masses. LABORATORY DATA: White count 58791, H and H 9 and 28, platelet count is normal. PO2 128, pCO2 25, pH 7.42. Creatinine 1.3, 2.8. AST and ALT are both elevated. IMPRESSION: 1. Hepatic failure, hyperammonemia, etiology unclear. 2. Emergency dialysis. 3. Anoxic injury. 4. Metabolic encephalopathy. PLAN: Await results of the brain scan. we will discuss with transplant organ procurement team thereafter. Apparently, she has baseline, what appears to be narcolepsy, hypothyroidism, may be some bipolar disorder as per the medical records. Job ID: [id number] [facility]
--- NOTE | 2019-01-11 09:01 | EEG ---
Referring Physician: Theresa MCKAY EEG # [id number] TEST TYPE: PORTABLE INPATIENT REPORT: AN EEG USING THE [employer] TEN-TWENTY SYSTEM OF ELECTRODE PLACEMENT WAS PERFORMED. The background activity consists of electrocerebral silence. Despite increased sensitivities, no brain activity was detected. Photic stimulation and noxious stimulation did not alter the background. IMPRESSION: FINDINGS ARE CONSISTENT WITH BRAIN . [employer] Pumper: KAVON [employer]: [email or web address]
== END 2019-01-09 12:26 | disposition short-term general hospital (02) | DRG 391 ==
LOC: ERS 09:19 → T4-B 11:38 → 2SE 01-06 20:10 → OBSVTOIN 01-06 20:13 → CCU 01-06 23:41
PROVIDERS: ADMIT Internal Medicine; ATTEND Internal Medicine
PROC: 0DB78ZX Excision of Stomach, Pylorus, Via Natural or Artificial Opening Endoscopic, Diagnostic (ICD-10-PCS; principal; 2019-01-05)
PROC: 0D768ZZ Dilation of Stomach, Via Natural or Artificial Opening Endoscopic (ICD-10-PCS; 2019-01-05)
PROC: 02HV33Z Insertion of Infusion Device into Superior Vena Cava, Percutaneous Approach (ICD-10-PCS; 2019-01-07)
PROC: B548ZZA Ultrasonography of Superior Vena Cava, Guidance (ICD-10-PCS; 2019-01-07)
DX: K21.9 Gastro-esophageal reflux disease without esophagitis (principal); J96.01 Acute respiratory failure with hypoxia; G93.41 Metabolic encephalopathy; A41.9 Sepsis, unspecified organism; Z51.5 Encounter for palliative care; R65.21 Severe sepsis with septic shock; J18.9 Pneumonia, unspecified organism; G93.6 Cerebral edema; K72.00 Acute and subacute hepatic failure without coma; E87.2 Acidosis; O99.43 Diseases of the circulatory system complicating the puerperium; I42.9 Cardiomyopathy, unspecified; E44.0 Moderate protein-calorie malnutrition; Z68.1 Body mass index [BMI] 19.9 or less, adult; E16.2 Hypoglycemia, unspecified; E87.6 Hypokalemia; F41.9 Anxiety disorder, unspecified; F32.9 Major depressive disorder, single episode, unspecified; E03.9 Hypothyroidism, unspecified; F98.8 Other specified behavioral and emotional disorders with onset usually occurring in childhood and adolescence; K44.9 Diaphragmatic hernia without obstruction or gangrene; G47.419 Narcolepsy without cataplexy; Z79.899 Other long term (current) drug therapy; Z90.49 Acquired absence of other specified parts of digestive tract; Z90.710 Acquired absence of both cervix and uterus; Z88.6 Allergy status to analgesic agent; Z88.8 Allergy status to other drugs, medicaments and biological substances
CPT/HCPCS: 36415; 36416; 70450; 70544; 70553; 71045; 74177; 76705; 78610; 80048; 80053; 80074; 80076; 80164; 80202; 80306; 80307; 81003; 82010; 82140; 82390; 82525; 82805; 83525; 83605; 83630; 83690; 83735; 83880; 84100; 84145; 84146; 84443; 84484; 84550; 84681; 85007; 85025; 85027; 85049; 85300; 85362; 85379; 85384; 85610; 85730; 87015; 87040; 87045; 87046; 87086; 87206; 87324; 87449; 87798; 87899; 88305; 88312; 90935; 93306; 94002; 94003; 95816; 95819; 96361; 96374; A9521; A9577; C1752; C9113; G0257; J0132; J0692; J1250; J1644; J1720; J2060; J2405; J2543; J2704; J2920; J2930; J3370; J3430; J3475; J3480; J3490; J7050; J7070; P9045; P9047; Q0162; Q9966; Q9967

== ENCOUNTER 2019-01-09 12:26 | Inpatient (IN) | payer OTHER ==
[2019-01-09 16:50] VITALS: BMI 19.1
[2019-01-09] MEDS ORDERED: Norepinephrine 8 MG in Dextrose 5% in Water 242 ML IVPB PRN (17:21)
[2019-01-09] MEDS ORDERED: Albuterol Sulfate 2.5 mg/3 ml Neb NEB PRN (17:30)
[2019-01-09] MEDS ORDERED: Vasopressin 20 UNIT in Sodium Chloride 0.9% 250 ML 250 ML IV SCH (17:30)
[2019-01-09] MEDS ORDERED: methylPREDNISolone Sod Succ 2 GM in Sodium Chloride 0.9% 100 ML IVPB SCH ×2 (17:30→18:45)
--- NOTE | 2019-01-09 17:31 | RAD ---
Chest AP view INDICATION: Donor management COMPARISON: Chest radiograph dated January 07, 2019 FINDINGS: Lungs:Worsening diffuse airspace opacities Cardiac silhouette pulmonary vasculature:Heart size accentuated by exam technique. Pleural spaces:No pleural effusion or pneumothorax is demonstrated. Upper abdomen:Stable gastric catheter Osseous structures: Unchanged Additional findings:No pneumothorax. ET tube and left IJ central venous catheter unchanged. IMPRESSION: Airspace opacities have worsened bilaterally suspicious for either worsening pneumonia, h emorrhage or edema. The tubes and lines are stable.
[2019-01-09] MEDS: Levothyroxine Sodium 400 MCG in Sodium Chloride 0.9% 100 ML IVPB SCH ×2 (18:09→23:27)
[2019-01-09] MEDS: DOBUTamine 500 mg/250 ml 250 ML IVPB SCH (18:10)
[2019-01-09] MEDS ORDERED: Levothyroxine 100 MCG SDV IVP SCH (18:30)
[2019-01-09] MEDS: Albuterol Sulfate 2.5 mg/3 ml Neb NEB SCH ×2 (18:44→22:59)
[2019-01-09] MEDS: Phytonadione 10 MG in Sodium Chloride 0.9% 50 ML IVPB SCH (19:06)
[2019-01-09 19:23] LABS: Hemoglobin 9.2 g/dL (12.0-16.0); Mean Corpuscular HGB CONC 33.8 g/dL (32.0-36.0); Mean Corpuscular Hemoglobin 30.9 pg (27.0-31.0); Mean Corpuscular Volume 91.2 fL (78.0-98.0); Platelet Count 142 thou/uL (130-400); RBC Distribution Width 14.1 % (11.5-14.5); Red Blood Cell (RBC) Count 2.99 mill/uL (4.20-5.40); White Blood Cell (WBC) Count 16.3 thou/uL (4.8-10.8)
[2019-01-09 19:35] LABS: INR-International Normal Ratio 1.6; PTT 37.6 SEC (22.9-36.1); Prothrombin Time 19.1 SEC (12.0-14.7)
[2019-01-09 19:43] LABS: Band 19 % (5-11); Lymphocytes 1 % (21-51); MDiff Complete? YES; Metamyelocyte 6 % (0-0); Myelocyte 1 % (0-0); Neutrophil 73 % (42-75); Platelet Morphology Comment Appears Adequate; Polychromasia SLIGHT = 2-3 cells (100X) (0-2/hpf)
[2019-01-09 19:53] LABS: ALT (SGPT) 156 U/L (8-55); AST (SGOT) 346 U/L (5-34); Albumin 3.8 g/dL (3.5-5.0); Alkaline Phosphatase 126 U/L (40-150); Anion Gap 27 mmol/L (10-20); BUN (Urea Nitrogen) 33 mg/dL (7.0-18.7); Bilirubin, Total 0.4 mg/dL (0.2-1.2); Calc. Creatinine Clearance 36 mL/min (70-130); Calcium 7.5 mg/dL (7.8-10.44); Carbon Dioxide 9 mmol/L (22-29); Chloride 102 mmol/L (98-107); Estimated GFR-MDRD 36; Globulin 1.4 g/dL (2.4-3.5); Glucose 279 mg/dL (70-105); Lipase 69 U/L (8-78); Magnesium 2.2 mg/dL (1.6-2.6); Phosphorus 3.7 mg/dL (2.3-4.7); Potassium 3.4 mmol/L (3.5-5.1); Protein, Total 5.2 g/dL (6.0-8.3); Sodium 135 mmol/L (136-145)
[2019-01-09] MEDS: HUMULIN R 100 UNITS in Sodium Chloride 0.9% 100 ML IVPB SCH ×2 (20:16→23:26)
[2019-01-09 21:11] LABS: Bilirubin Negative (Negative); Blood, Urine 3+ (Negative); Clarity Turbid (Clear); Glucose, Urine (Dipstick) 30 mg/dL (Negative); Leukocyte Negative Leu/uL (Negative); Mucous/LPF Rare LPF (<2+); Nitrite Negative (Negative); Protein, Urine (Dipstick) 100 mg/dL (Neg-Trace); Squamous Epithelial 0-3 HPF (0-3); Urobilinogen Normal mg/dL (Less than 2)
[2019-01-09 21:13] LABS: Bacteria/HPF 1+ HPF (None Seen)
[2019-01-09 23:20] LABS: Actual Bicarbonate (HCO3a) 10.3 mEq/L (22-28); Base Excess (BEa) -14.8 mEq/L (-2.0 to +3.0); Calcium, Ionized 1.08 mmol/L (1.12-1.30); Carboxyhemoglobin (COHb) 0.1 gm% (0.0-3.0); Potassium - ABG Lab 2.37 mmol/L (3.70-5.30); pH, Arterial 7.28 (7.35-7.45)
[2019-01-09 23:21] LABS: CO2 Tension 22.2 mmHg (35.0-45.0); Puncture Site ALINE
[2019-01-09] MEDS ORDERED: Phytonadione 10 MG in Sodium Chloride 0.9% 50 ML IVPB SCH (23:30)
[2019-01-09] MEDS ORDERED: Albumin 25% 25 GM/100 ML BOT IVPB SCH (23:45)
[2019-01-09] MEDS ORDERED: Sodium Bicarb 50 MEQ/50 ML VIAL ONE (23:46)
[2019-01-09] MEDS ORDERED: Sodium Bicarb 50 MEQ/50 ML VIAL IVP SCH (23:59)
[2019-01-10 00:13] LABS: INR-International Normal Ratio 1.6; PTT 37.4 SEC (22.9-36.1); Prothrombin Time 18.6 SEC (12.0-14.7)
[2019-01-10] MEDS: Calcium Chloride 1 GM/10 ML Abboject SYRINGE ONE ×3 (00:20→00:33)
[2019-01-10 00:22] LABS: Hemoglobin 7.9 g/dL (12.0-16.0); Mean Corpuscular HGB CONC 34.9 g/dL (32.0-36.0); Mean Corpuscular Hemoglobin 31.1 pg (27.0-31.0); Mean Corpuscular Volume 89.2 fL (78.0-98.0); Mean Platelet Volume 7.7 fL (7.4-10.4); Platelet Count 102 thou/uL (130-400); RBC Distribution Width 14.1 % (11.5-14.5); Red Blood Cell (RBC) Count 2.53 mill/uL (4.20-5.40); White Blood Cell (WBC) Count 13.3 thou/uL (4.8-10.8)
[2019-01-10] MEDS: Potassium Chloride 20 MEQ in Premix Bag 1 BAG IVPB SCH ×6 (00:22→08:27)
[2019-01-10] MEDS: Phytonadione 10 MG in Sodium Chloride 0.9% 50 ML IVPB SCH (00:22)
[2019-01-10 00:23] LABS: Band 37 % (5-11); MDiff Complete? YES; Neutrophil 63 % (42-75); Platelet Morphology Comment Appears Decreased
[2019-01-10 00:30] LABS: ALT (SGPT) 130 U/L (8-55); AST (SGOT) 263 U/L (5-34); Albumin 3.2 g/dL (3.5-5.0); Alkaline Phosphatase 109 U/L (40-150); Anion Gap 26 mmol/L (10-20); BUN (Urea Nitrogen) 35 mg/dL (7.0-18.7); Bilirubin, Total 0.4 mg/dL (0.2-1.2); Calc. Creatinine Clearance 37 mL/min (70-130); Calcium 7.2 mg/dL (7.8-10.44); Carbon Dioxide 28 mmol/L (22-29); Chloride 101 mmol/L (98-107); Estimated GFR-MDRD 36; Globulin 1.2 g/dL (2.4-3.5); Glucose 194 mg/dL (70-105); Magnesium 1.8 mg/dL (1.6-2.6); Phosphorus 2.5 mg/dL (2.3-4.7); Potassium 2.1 mmol/L (3.5-5.1); Protein, Total 4.4 g/dL (6.0-8.3); Sodium 153 mmol/L (136-145)
[2019-01-10] MEDS ORDERED: Calcium Gluc 4.6 MEQ/10 ML (100 MG/ML) SLOW IVP SCH (00:30)
[2019-01-10] MEDS: Furosemide 100 MG/10 ML VIAL SLOW IVP SCH ×2 (00:35→01:06)
[2019-01-10] MEDS: DOBUTamine 500 mg/250 ml 250 ML IVPB SCH (01:32)
[2019-01-10 01:40] LABS: Actual Bicarbonate (HCO3a) 19.6 mEq/L (22-28); Base Excess (BEa) -4.4 mEq/L (-2.0 to +3.0); CO2 Tension 31.7 mmHg (35.0-45.0); Calcium, Ionized 1.17 mmol/L (1.12-1.30); Carboxyhemoglobin (COHb) 0.5 gm% (0.0-3.0); Hemoglobin (Hb) 8.3 g/dL (12.0-16.0); O2 Tension (PaO2) 201.7 mmHg (80.0-100.0); Potassium - ABG Lab 2.56 mmol/L (3.70-5.30); pH, Arterial 7.41 (7.35-7.45)
[2019-01-10 01:41] LABS: Actual Bicarbonate (HCO3v) 20 mEq/L (22-28); Base Excess -4.8 mEq/L (-2.0 to +3.0); pH (venous) 7.38 (7.32-7.43)
[2019-01-10 01:42] LABS: Calcium, Ionized 1.18 mmol/L (1.16-1.32); Chloride (ABG LAB) 102 mmol/L (98-106); Hemoglobin (Hb) 8.4 g/dL (11.7-15.5); Potassium - ABG Lab 2.49 mmol/L (3.70-5.30); Sodium 144.2 mmol/L (133-146)
[2019-01-10 01:45] LABS: ALV-art Gradient 471.675 (0-20); Puncture Site ALINE
[2019-01-10 01:47] LABS: Lactic Acid 3.3 mmol/L (0.5-2.2)
[2019-01-10] MEDS ORDERED: Norepinephrine 32 MG in Dextrose 5% in Water 218 ML IVPB PRN (02:34)
[2019-01-10] MEDS: metroNIDAZOLE 500 MG in Premix Bag 1 BAG IVPB SCH ×2 (03:01→08:27)
[2019-01-10] MEDS ORDERED: Magnesium Sulfate 4 GM in Sodium Chloride 0.9% 250 ML 250 ML IVPB SCH (03:30)
[2019-01-10] MEDS: Albuterol Sulfate 2.5 mg/3 ml Neb NEB SCH ×3 (03:50→10:18)
[2019-01-10] MEDS ORDERED: Vancomycin HCl 1 GM in Premix Bag 1 BAG IVPB SCH (04:00)
[2019-01-10 04:28] LABS: Potassium 2.7 mmol/L (3.5-5.1)
[2019-01-10 04:34] LABS: Actual Bicarbonate (HCO3a) 20.2 mEq/L (22-28); CO2 Tension 29.1 mmHg (35.0-45.0); Calcium, Ionized 1.18 mmol/L (1.12-1.30); Carboxyhemoglobin (COHb) 0.3 gm% (0.0-3.0); Hemoglobin (Hb) 8.7 g/dL (12.0-16.0); O2 Tension (PaO2) 309.4 mmHg (80.0-100.0); Potassium - ABG Lab 2.61 mmol/L (3.70-5.30); pH, Arterial 7.46 (7.35-7.45)
[2019-01-10 04:35] LABS: Puncture Site ALINE
[2019-01-10 04:37] LABS: ALV-art Gradient 367.225 (0-20)
[2019-01-10] MEDS ORDERED: Potassium Chloride 20 MEQ in Premix Bag 1 BAG IVPB SCH (04:45)
[2019-01-10] MEDS: Levothyroxine Sodium 400 MCG in Sodium Chloride 0.9% 100 ML IVPB SCH ×2 (05:12→10:29)
[2019-01-10] MEDS: HUMULIN R 100 UNITS in Sodium Chloride 0.9% 100 ML IVPB SCH (05:13)
[2019-01-10] MEDS ORDERED: Phenylephrine HCL 40 MG in Sodium Chloride 0.9% 250 ML 250 ML IVPB SCH (05:30)
[2019-01-10 06:26] VITALS: TEMP 98.1
[2019-01-10 07:15] LABS: INR-International Normal Ratio 1.5; PTT 35.9 SEC (22.9-36.1); Prothrombin Time 18.1 SEC (12.0-14.7)
[2019-01-10 07:24] LABS: Hemoglobin 8.7 g/dL (12.0-16.0); Mean Corpuscular HGB CONC 33.5 g/dL (32.0-36.0); Mean Corpuscular Hemoglobin 29.8 pg (27.0-31.0); RBC Distribution Width 14.1 % (11.5-14.5); Red Blood Cell (RBC) Count 2.92 mill/uL (4.20-5.40); White Blood Cell (WBC) Count 17.2 thou/uL (4.8-10.8)
[2019-01-10 07:56] LABS: ALT (SGPT) 156 U/L (8-55); AST (SGOT) 315 U/L (5-34); Albumin 3.7 g/dL (3.5-5.0); Alkaline Phosphatase 159 U/L (40-150); Anion Gap 18 mmol/L (10-20); BUN (Urea Nitrogen) 34 mg/dL (7.0-18.7); Bilirubin, Direct 0.3 mg/dL (0.1-0.3); Bilirubin, Total 0.5 mg/dL (0.2-1.2); Calc. Creatinine Clearance 32 mL/min (70-130); Carbon Dioxide 24 mmol/L (22-29); Chloride 108 mmol/L (98-107); Estimated GFR-MDRD 31; Globulin 1.5 g/dL (2.4-3.5); Glucose 146 mg/dL (70-105); Magnesium 3.6 mg/dL (1.6-2.6); Phosphorus Less than 1.0 mg/dL (2.3-4.7); Potassium 3.7 mmol/L (3.5-5.1); Protein, Total 5.2 g/dL (6.0-8.3); Sodium 146 mmol/L (136-145)
[2019-01-10 08:09] LABS: Band 6 % (5-11); Lymphocytes 2 % (21-51); MDiff Complete? YES; Mean Platelet Volume 8.1 fL (7.4-10.4); Monocytes 2 % (0-10); Neutrophil 90 % (42-75); Nucleated RBC 2 % (0); Platelet Count 118 thou/uL (130-400); Platelet Morphology Comment Appears Decreased
[2019-01-10] MEDS ORDERED: Sodium Phosphate 40 MMOL in Sodium Chloride 0.9% 250 ML 250 ML IVPB SCH (08:30)
[2019-01-10 10:26] VITALS: BP 109/66
--- NOTE | 2019-01-11 08:57 | EEG ---
Referring Physician: Theresa MCKAY EEG # [id number] TEST TYPE: PORTABLE INPATIENT REPORT: AN EEG USING THE INTERNATIONAL TEN-TWENTY SYSTEM OF ELECTRODE PLACEMENT WAS PERFORMED. The background activity consists of electrocerebral silence. Photic stimulation and noxious stimulation did not alter the background. Despite higher sensitivities, no brain activity was detected. IMPRESSION: FINDINGS ARE CONSISTENT WITH BRAIN . Dermatopathologist: Brim Presser: [email or web address].[email or web address] [email or web address]
--- NOTE | 2019-01-13 13:12 | EKG ---
Test Reason : STAT Blood Pressure : / mmHG Vent. Rate : 106 BPM Atrial Rate : 106 BPM P-R Int : 150 ms QRS Dur : 094 ms QT Int : 374 ms P-R-T Axes : 057 038 080 degrees QTc Int : 496 ms Sinus tachycardia Septal infarct (cited on or before 05-DEC-2018) T wave abnormality, consider anterior ischemia Abnormal ECG When compared with ECG of 02-JAN-2019 14:53, (Unconfirmed) QRS duration has increased Questionable change in initial forces of Anterior leads Non-specific change in ST segment in Anterior leads T wave inversion now evident in Anterior leads Confirmed by LAINE DAVIDSON (2) on 01/13/2019 1:12:13 PM Referred By: REBEL TRANSPLANT Confirmed By:LAINE DAVIDSON
== END 2019-01-10 12:02 | disposition critical access hospital (66) | DRG 951 ==
LOC: CCU 12:26
PROVIDERS: ADMIT Internal Medicine; ATTEND Internal Medicine
DX: Z52.9 Donor of unspecified organ or tissue (principal)
CPT/HCPCS: 36415; 36416; 71045; 81001; 82150; 82248; 82805; 83605; 83690; 83735; 84100; 84132; 85025; 85610; 85730; 93005; 93010; 94003; 94640; J1250; J1815; J1940; J2370; J2930; J3370; J3430; J3475; J3480; J3490; J7050; J7070; J7611; P9047